=== PATIENT | female | born 1955 | race Caucasian/White ===

== ENCOUNTER 2020-08-19 08:44 | Outpatient (CLI) | payer BC, SELFPAY ==
--- NOTE | 2020-08-19 10:30 | NEURO_ITS ---
Patient Number: [id number] Impression: # Complains of imbalance /gait dysfunction. # Normal nerve conduction study. # Normal needle/EMG exam. # Clinical correlation recommended; Consider higher involvement. Nerve Conduction Studies Anti Sensory Summary Table Stim Site NR Peak (ms) P-T Amp (?V) Site1 Site2 Delta-P (ms) Dist (cm) Roger (m/s) Left Sup Fibular Anti Sensory (Ant Lat Mall) 14 cm 3.9 24.9 14 cm Ant Lat Mall 3.9 16.0 41 Right Sup Fibular Anti Sensory (Ant Lat Mall) 14 cm 3.5 26.1 14 cm Ant Lat Mall 3.5 16.0 46 Left Sural Anti Sensory (Lat Mall) Calf 3.5 9.3 Calf Lat Mall 3.5 16.0 46 Right Sural Anti Sensory (Lat Mall) Calf 3.9 10.7 Calf Lat Mall 3.9 16.0 41 Motor Summary Table Stim Site NR Onset (ms) O-P Amp (mV) Site1 Site2 Delta-0 (ms) Dist (cm) Roger (m/s) Left Peroneal Motor (Vastus Med) Ankle 5.1 3.5 Popit Ankle 8.0 38.0 48 Popit 13.1 2.6 Right Peroneal Motor (Vastus Med) Ankle 4.8 1.5 Popit Ankle 8.0 37.0 46 Popit 12.8 1.2 Left Tibial Motor (Abd Villafana Brev) Ankle 4.8 5.0 Knee Ankle 9.0 40.0 44 Knee 13.8 3.1 Right Tibial Motor (Abd Villafana Brev) Ankle 5.1 7.0 Knee Ankle 9.2 38.0 41 Knee 14.3 3.8 F Wave Studies NR F-Lat (ms) L-R F-Lat (ms) Left Peroneal (Mrkrs) (EDB) 49.11 0.34 Right Peroneal (Mrkrs) (EDB) 48.77 0.34 Left Tibial (Mrkrs) (Abd Hallucis) 49.50 0.27 Right Tibial (Mrkrs) (Abd Hallucis) 49.23 0.27 EMG Side Muscle Nerve Root Ins Act Fibs Amp Dur Recrt Comment Right AntTibialis Dp Br Fibular L4-5 Nml Nml Nml Nml Nml Right Gastroc Tibial S1-2 Nml Nml Nml Nml Nml Right Fibularis Long Sup Br Fibular L5-S1 Nml Nml Nml Nml Nml Right Flex Dig Long Tibial L5-S2 Nml Nml Nml Nml Nml Right Ext Dig Brev Dp Br Fibular L5, S1 Nml Nml Nml Nml Nml Left AntTibialis Dp Br Fibular L4-5 Nml Nml Nml Nml Nml Left Gastroc Tibial S1-2 Nml Nml Nml Nml Nml Left Fibularis Long Sup Br Fibular L5-S1 Nml Nml Nml Nml Nml Left Flex Dig Long Tibial L5-S2 Nml Nml Nml Nml Nml Left Ext Dig Brev Dp Br Fibular L5, S1 Nml Nml Nml Nml Nml MTDD
== END 2020-08-19 08:45 | disposition home or self-care (01) ==
LOC: ANHNEURO 08:46
PROVIDERS: PCP Internal Medicine; Visit Provider Psychiatry & Neurology Neurology
DX: G62.9 Polyneuropathy, unspecified (principal)
CPT/HCPCS: 95886; 95910

== ENCOUNTER 2020-11-04 07:54 | Outpatient (CLI) | payer BC, SELFPAY ==
[2020-11-04 08:48] LABS: Alanine Aminotransferase 15 U/L (4-35); Albumin Level 4.4 g/dL (3.5-5.1); Alkaline Phosphatase 49 U/L (38-126); Anion Gap 9 mmol/L (8-16); Aspartate Amino Transferase 21 U/L (14-36); Bilirubin,Total 0.6 mg/dL (0.2-1.3); Blood Urea Nitrogen 18 mg/dL (7-17); Calcium 9.8 mg/dL (8.4-10.2); Carbon Dioxide 30 mmol/L (22-30); Chloride 101 mmol/L (98-107); Estimated Glomerular Filt Rate > 60; Glucose 94 mg/dL (65-105); Potassium 3.7 mmol/L (3.4-5.0); Sodium 140 mmol/L (137-145)
[2020-11-04 09:16] LABS: Free T4 Free Thyroxine 1.38 ng/mL (0.78-2.19)
[2020-11-07 02:36] LABS: Thyroid Peroxidase Antibodies <1 IU/mL (<9)
[2020-11-11 14:40] LABS: Triiodothyronine T3 Free 3.1 pg/mL (2.3-4.2)
== END 2020-11-04 07:55 | disposition home or self-care (01) ==
PROVIDERS: PCP Internal Medicine; Visit Provider Internal Medicine Endocrinology, Diabetes & Metabolism
DX: R94.7 Abnormal results of other endocrine function studies (principal); R53.83 Other fatigue
CPT/HCPCS: 36415; 80053; 82533; 84439; 84443; 84481; 86376; 96372; J0834

== ENCOUNTER → 2020-11-26 15:09 | Outpatient (CLI) | payer BC, SELFPAY ==
--- NOTE | ~2020-11-26 | MR_ITS ---
EXAMINATION: MR cervical spine wo/w con DATE: 11/26/2020 16:07 INDICATION: Cervical disc disorder presenting with unsteady gait and left arm tingling TECHNIQUE: Magnetic resonance imaging (MRI) of the cervical spine was performed without and with 10 m L Multihance intravenous contrast. Sequences included sagittal T2-weighted FSE, sagittal T2-weighted FS FSE, sagittal T1-weighted FSE, axial T2-weighted FSE, and axial T1-weighted SE. Postcontrast seque nces included sagittal T1-weighted FS FSE, and axial T1-weighted FS SE. COMPARISON: None FINDINGS: Bone alignment is normal. Vertebral body heights are normal. Bone marrow signal intensity is normal . Intervertebral disc heights are normal. Cord signal intensity is normal. Cervical soft tissues are unremarkable. No abnormally enhancing lesions identified. The following disc levels are specifically discussed: C2-C3: The disc does not extend beyond the endplate margin. There is no uncovertebral joint osteoarth ritis. There is mild bilateral facet joint osteoarthritis. There is no neural foraminal stenosis. The re is no central canal stenosis. C3-C4: The disc does not extend beyond the endplate margin. There is no uncovertebral joint osteoarth ritis. There is mild left and minimal right facet joint osteoarthritis. There is no neural foraminal stenosis. There is no central canal stenosis. C4-C5: Disc is mildly bulging. There is mild right and mild to moderate left uncovertebral joint oste oarthritis. There is mild left and mild to moderate right facet joint osteoarthritis. There is mild b ilateral neural foraminal stenosis. There is mild central canal stenosis. C5-C6: The disc does not extend beyond the endplate margin. There is mild bilateral uncovertebral kieran nt osteoarthritis. There is mild to moderate bilateral facet joint osteoarthritis. There is mild bila teral neural foraminal stenosis. There is no central canal stenosis. C6-C7: The disc does not extend beyond the endplate margin. There is mild left uncovertebral joint os teoarthritis. There is mild right and mild to moderate left facet joint osteoarthritis. There is mild left and minimal right neural foraminal stenosis. There is no central canal stenosis. C7-T1: The disc does not extend beyond the endplate margin. There is no uncovertebral joint osteoarth ritis. There is mild right and mild to moderate right facet joint osteoarthritis. There is no neural foraminal stenosis. There is no central canal stenosis. IMPRESSION: 1. Mild cervical spondylosis. Reviewed, dictated and finalized at location A. SHER IMPLANT
[2020-11-26 15:32] LABS: Estimated Glomerular Filt Rate > 60
== END ==
DX: M50.020 Cervical disc disorder with myelopathy, mid-cervical region, unspecified level (principal); M47.812 Spondylosis without myelopathy or radiculopathy, cervical region
CPT/HCPCS: 72156; A9577

== ENCOUNTER → 2020-12-10 11:33 | Outpatient (CLI) | payer BC, SELFPAY ==
--- NOTE | ~2020-12-10 | XR_ITS ---
XR lumbar spine 2-3V DATE: 12/10/2020 12:13 INDICATION: Back pain, radiculopathy. TECHNIQUE: Standing flexion and extension lateral views only COMPARISON: None FINDINGS: Diffuse osteopenia. There is mild degenerative spurring of the thoracic spine. No fracture or spondylolisthesis is evident. No instability on flexion or extension is evident. IMPRESSION: Limited incomplete examination Diffuse osteopenia Mild degenerative change of the lumbar spine Reviewed, dictated and finalized at location A. IR CAMERAMAN
--- NOTE | ~2020-12-10 | XR_ITS ---
XR thoracic spine 2V DATE: 12/10/2020 12:13 INDICATION: Thoracic spine pain. Radiculopathy. TECHNIQUE: Flexion and extension lateral views COMPARISON: None FINDINGS: Limited examination excluding AP and swimmer views. Diffuse osteopenia. No fracture or dislocation or instability of the thoracic spine is detected. IMPRESSION: Limited examination; no instability on flexion or extension Osteopenia Reviewed, dictated and finalized at location A. ERSITY CONTROLLER
== END ==
DX: M54.10 Radiculopathy, site unspecified (principal); M85.88 Other specified disorders of bone density and structure, other site
CPT/HCPCS: 72070; 72100

== ENCOUNTER → 2020-12-24 09:41 | Outpatient (CLI) | payer BC, SELFPAY ==
--- NOTE | ~2020-12-24 | MR_ITS ---
EXAMINATION: MR thoracic spine wo con EXAM DATE: 12/24/2020 10:29 INDICATION: Thoracic spine pain radiculopathy . TECHNIQUE: Multi-sequential, multiplanar MR images of the thoracic spine were obtained without contra st. Sagittal T1, T2, T2 fat saturation, axial T2 weighted images reviewed. There is no prior study for comparison. FINDINGS: The vertebral bodies are aligned in the AP dimension. Vertebral body and disc heights are w ell-maintained. The spinal cord signal intensity and intrinsic morphology is normal. Thoracic central canal and neural foramen widely patent. Mild diffuse thoracic facet arthropathy. Paraspinal soft tis jered is unremarkable. IMPRESSION: Mild thoracic facet arthropathy. Reviewed, dictated and finalized at location A. INUM POOL INSTALLER
--- NOTE | ~2020-12-24 | MR_ITS ---
EXAMINATION: MR lumbar spine wo con EXAM DATE: 12/24/2020 10:34 INDICATION: Radiculopathy unspecified. Left leg numbness. TECHNIQUE: Multi-sequential, multiplanar MR images of the lumbar spine were obtained without contrast . Sagittal T1, T2, T2 fat saturation images. Axial T2 weighted images. Correlation is made to lumba r x-ray from 12/10/2020. FINDINGS: There is a transitional segment which will be designated S1 with a rudimentary S1-2 disc sp jrarett. There is mild disc disease L1-L3. The conus medullaris terminates at the L1/2 level and has norm al signal intensity and morphology. The vertebral bodies are aligned in the AP dimension. Vertebral body heights are maintained. Paraspinal soft tissue is unremarkable. Level by level evaluation: L1-L2: There is a minimal diffuse disc bulge. Facet arthropathy: None. Neural foraminal stenosis: No stenosis. Central canal stenosis: No stenosis. L2-L3: Disc does not extend beyond the endplate margin. Facet arthropathy: None. Neural foraminal stenosis: No stenosis. Central canal stenosis: No stenosis. L3-L4: There is a mild diffuse disc bulge. Facet arthropathy: Mild. Neural foraminal stenosis: No stenosis. Central canal stenosis: No stenosis. L4-L5: There is a mild diffuse disc bulge. Facet arthropathy: Mild. Neural foraminal stenosis: Mild left. Central canal stenosis: No stenosis. L5-S1: There is a minimal diffuse disc bulge. Facet arthropathy: Mild. Neural foraminal stenosis: No stenosis. Central canal stenosis: No stenosis. S1-2: Rudimentary disc, transitional segment Facet arthropathy: Mild. Neural foraminal stenosis: No stenosis. Central canal stenosis: No stenosis. IMPRESSION: 1. Transitional lumbosacral segment designated S1. 2. Mild lumbar spondylosis. Reviewed, dictated and finalized at location A. R HEAD PUNCHER
== END ==
DX: M54.10 Radiculopathy, site unspecified (principal); M54.6 Pain in thoracic spine; M47.816 Spondylosis without myelopathy or radiculopathy, lumbar region; Q76.49 Other congenital malformations of spine, not associated with scoliosis; M12.9 Arthropathy, unspecified
CPT/HCPCS: 72146; 72148

== ENCOUNTER 2020-12-28 08:50 | Outpatient (CLI) | payer BC, SELFPAY ==
--- NOTE | ~2020-12-28 | MM_ITS ---
EXAMINATION: MM screening betito BI w brittney HISTORY: Screening mammogram, family history of breast cancer in her sister. TECHNIQUE: Craniocaudal and mediolateral oblique 3-D tomosynthesis images were obtained and synthetic 2-D images were generated. CAD analysis was submitted and interpreted. COMPARISON: 05/03/2019, 02/22/2018, 02/03/2017 BREAST PARENCHYMAL COMPOSITION: There are scattered areas of fibroglandular density. FINDINGS: There is no evidence of suspicious mass, calcification, or architectural distortion to sugg est malignancy in either breast. There has been no suspicious interval change. IMPRESSION: 1. No mammographic evidence of malignancy. 2. Recommend routine screening mammography in one year. BI-RADS Category 1: Negative Reviewed, dictated and finalized at location A. VIDUAL PENSION ADVISER
--- NOTE | ~2020-12-28 | DEXA_ITS ---
Bone Density Report Name: Bisi Kuhn Age: 65 Sex: Female Ethnicity: White Date of : 1955 Indication: postmenopausal osteoporosis; height loss; Referring Provider: MARY LEON Study: Bone densitometry was performed. Exam Date: December 28, 2020 Accession number: [id number] Bone Density: Region BMD T-score Z-score Classification AP Spine (L1-L4) 0.667 -3.5 -1.7 Osteoporosis Femoral Neck (Left) 0.620 -2.1 -0.6 Osteopenia Total Hip (Left) 0.658 -2.3 -1.1 Osteopenia Total Hip Bilateral Avg 0.635 -2.5 -1.3 Osteoporosis Femoral Neck (Right) 0.590 -2.3 -0.8 Osteopenia Total Hip (Right) 0.610 -2.7 -1.5 Osteoporosis World Health Organization criteria for BMD impression classify patients as: Normal (T-score at or above -1.0), Osteopenia (T-score between -1.0 and -2.5), or Osteoporosis (T-score at or below -2.5). 10-year Fracture Risk: FRAX not reported because: Some T-score for Spine Total or Hip Total or Femoral Neck at or below -2.5 Previous Exams: Region Exam Age BMD T-score BMD Change BMD Change Date g/cm2 vs Baseline vs Previous AP Spine(L1-L4) 12/28/2020 65 0.667 -3.5 -0.155(-18.9%) -0.106(-13.8%) 09/21/2018 63 0.773 -2.5 -0.049(-6.0%)# -0.002(-0.3%) 07/04/2016 61 0.776 -2.5 -0.047(-5.7%)# 0.011(1.4%)# 03/21/2014 58 0.765 -2.6 -0.058(-7.0%)# 0.002(0.2%)# 09/16/2011 56 0.763 -2.6 -0.059(-7.2%)* -0.030(-3.8%)* 06/14/2009 53 0.793 -2.3 -0.029(-3.6%)* -0.029(-3.6%)* 12/11/2006 51 0.822 -2.0 Total Hip(Left) 12/28/2020 65 0.658 -2.3 -0.055(-7.8%)# -0.069(-9.5%)* 09/21/2018 63 0.727 -1.8 0.014(1.9%)# -0.042(-5.4%)* 07/04/2016 61 0.769 -1.4 0.055(7.8%)# 0.038(5.1%)# 03/21/2014 58 0.732 -1.7 0.018(2.5%)# -0.020(-2.7%)# 09/16/2011 56 0.752 -1.6 0.038(5.4%)* 0.028(3.9%)* 06/14/2009 53 0.724 -1.8 0.010(1.4%) 0.010(1.4%) 12/11/2006 51 0.714 -1.9 Total Hip(Right) 12/28/2020 65 0.610 -2.7 -0.075(-10.9%) -0.094(-13.3%) 09/21/2018 63 0.704 -1.9 0.019(2.8%)# -0.015(-2.1%) 07/04/2016 61 0.719 -1.8 0.034(5.0%)# -0.030(-4.0%)# 03/21/2014 58 0.750 -1.6 0.065(9.4%)# 0.036(5.0%)# 09/16/2011 56 0.714 -1.9 0.029(4.2%)* -0.010(-1.4%) 06/14/2009 53 0.724 -1.8 0.039(5.7%)* 0.039(5.7%)* 12/11/2006 51 0.685 -2.1 *Denotes significance at 95% confidence level, LSC for AP Spine = 0.022 g/cm2, LSC for Total Hip = 0.027 g/cm2 Clinical Information Provided by Patient:
== END 2020-12-28 08:51 | disposition home or self-care (01) ==
LOC: ANHIMG 08:52
PROVIDERS: Visit Provider Obstetrics & Gynecology
DX: Z78.0 Asymptomatic menopausal state (principal); Z12.31 Encounter for screening mammogram for malignant neoplasm of breast; M81.0 Age-related osteoporosis without current pathological fracture; M85.852 Other specified disorders of bone density and structure, left thigh; M85.851 Other specified disorders of bone density and structure, right thigh
CPT/HCPCS: 77063; 77067; 77080

== ENCOUNTER 2021-10-18 09:18 | Outpatient (CLI) | payer MEDICARE, SELFPAY ==
--- NOTE | ~2021-10-18 | PE_ITS ---
EXAMINATION: PET skull to mid thigh DATE: 10/18/2021 11:19 INDICATION: Multiple pulmonary nodules TECHNIQUE: Blood glucose level was 78 mg/dL. 8.277 mCi of 18-fluorodeoxyglucose (18-FDG) was administ ered i.v. Low dose computed tomography (CT) images were acquired from the base of the brain to the pr oximal thighs for attenuation correction and anatomic localization. Positron emission tomography (PET ) images were acquired in the same distribution beginning 64 minutes after injection. Images includin g fused PET/CT images were reconstructed in axial, coronal, and sagittal planes. Automated exposure c ontrol technique was employed. The dose-length product was 294.32mGy-cm. COMPARISON: None FINDINGS: Head/neck: There is symmetric increased activity in the oral cavity, palatine tonsils, parotid glands, submandib ular glands,laryngeal muscles, ocular muscles and sternocleidomastoid muscles without CT correlate, l ikely physiologic. No pathologically enlarged cervical lymphadenopathy or suspicious foci of increase d FDG uptake in the visualized head or neck. Chest: There are a few subcentimeter pulmonary nodules and smaller nodular pleural parenchymal scarring at t he bilateral apices which are without increased FDG uptake. No pneumonia, pulmonary edema or pleural effusion. Heart size is normal. No pericardial effusion. Thoracic aorta is normal in caliber. Calcifi ed left hilar lymph node consistent with old granulomatous disease. No pathologically enlarged or FDG avid thoracic lymphadenopathy. Abdomen/pelvis/proximal thighs: Physiologic renal accumulation and excretion of FDG activity in the kidneys and bladder. Normal degre e and heterogenous pattern of increased uptake throughout the liver without radiologic correlate or d ominant FDG avid lesion. The gallbladder, pancreas and bilateral adrenal glands are normal. Splenic c alcifications consistent with old granulomatous disease. Mild scattered colonic diverticulosis withou t adjacent from 3 change to suggest diverticulitis. Uptake scattered throughout the bowels without ra diologic correlate, also likely physiologic. Uterus and bilateral adnexa are unremarkable. Very small amount of likely physiologic free fluid in the cul-de-sac. No other abnormal foci of increased FDG u ptake or pathologically enlarged lymphadenopathy in the abdomen, pelvis or proximal thighs. Musculoskeletal: No suspicious lytic, blastic or FDG avid bone lesions. IMPRESSION: 1. No abnormal FDG uptake associated with a few subcentimeter nodules and nodular pleural parenchymal scarring at the apical segments of the bilateral upper lobes. Although reassuring, could not absolut josselin exclude slowly growing malignancy and would recommend continued follow-up with six-month low-dose noncontrast chest CT. Reviewed, dictated and finalized at location A. PRIVATE DUTY IMPRESSION: 1. No abnormal FDG uptake associated with a few subcentimeter nodules and nodul ar pleural parenchymal scarring at the apical segments of the bilateral upper l obes. Although reassuring, could not absolutely exclude slowly growing malignan cy and would recommend continued follow-up with six-month low-dose noncontrast chest CT.
[2021-10-18 09:47] LABS: Glucose Point of Care 78 mg/dl (65-105)
== END 2021-10-18 09:19 | disposition home or self-care (01) ==
PROVIDERS: PCP Internal Medicine; Visit Provider Internal Medicine Pulmonary Disease
DX: R91.1 Solitary pulmonary nodule (principal)
CPT/HCPCS: 78815; A9552

== ENCOUNTER 2021-10-24 14:35 | Outpatient (CLI) | payer MEDICARE, SELFPAY ==
--- NOTE | 2021-10-25 06:54 | WPDPFTINT ---
PFT Procedure Performed PFT Procedure Performed Plethysmography (Lung Vol) Diffusing Cap (DLCO) Flow Vol Loop Spirometry w/o Bronchodil PFT Interpretation This is a pulmonary function test with spirometry, plethysmography and diffusing capacity. The test was performed and results interpreted in accordance with the 2019 and 2005 ATS/ERS Task Force guidelines respectively using the Global Lung Function Initiative-2012 reference equations. Patient demonstrated good effort and cooperation. Reproducibility criteria were met. The quality of the spirometry maneuver was Grade A. Findings: Spirometry: The contour the inspiratory and expiratory flow tracing are normal. The the FVC is 3.09 L, 99% predicted. The FEV1 is 2.18 L, 90% predicted. The FEV1: FVC ratio 71%. Plethysmography: The total lung capacity is 4.65 L, 89% predicted. The functional residual capacity is 3.92 L, 111% predicted. The residual volume is 1.56 L, 73% predicted. Diffusing capacity: The absolute diffusion capacity is 15.8, 73% predicted. The diffusing capacity corrected for alveolar volume is 4.07, 94% predicted. Impression: The spirometry is normal without evidence of an obstructive abnormality. The lung volumes are normal. The diffusing capacity is normal. There are no prior studies for comparison
== END 2021-10-24 14:36 | disposition home or self-care (01) ==
PROVIDERS: PCP Internal Medicine; Visit Provider Internal Medicine Pulmonary Disease
DX: R06.09 Other forms of dyspnea (principal); R05.9 Cough, unspecified; J98.4 Other disorders of lung
CPT/HCPCS: 94375; 94726; 94729

== ENCOUNTER 2022-02-04 11:28 | Outpatient (CLI) | payer MEDICARE, SELFPAY ==
--- NOTE | ~2022-02-04 | MM_ITS ---
EXAMINATION: MM screening betito BI w brittney HISTORY: Screening TECHNIQUE: Craniocaudal and mediolateral oblique 3-D tomosynthesis images were obtained and synthetic 2-D images were generated. CAD analysis was submitted and interpreted. COMPARISON: Comparison to multiple prior studies sequentially, with oldest reviewed study dated 09/06. BREAST PARENCHYMAL COMPOSITION: There are scattered areas of fibroglandular density. FINDINGS: There is no evidence of suspicious mass, calcification, or architectural distortion to sugg est malignancy in either breast. There has been no suspicious interval change. IMPRESSION: 1. No mammographic evidence of malignancy. 2. Recommend routine screening mammography in one year. BI-RADS Category 1: Negative Reviewed, dictated and finalized at location A.
== END 2022-02-04 11:29 | disposition home or self-care (01) ==
PROVIDERS: PCP Internal Medicine; Visit Provider Obstetrics & Gynecology
DX: Z12.31 Encounter for screening mammogram for malignant neoplasm of breast (principal)
CPT/HCPCS: 77063; 77067

== ENCOUNTER 2022-07-03 13:31 | Outpatient (CLI) | payer MEDICARE, SELFPAY ==
[2022-07-03 13:59] LABS: Basophils Percent Auto 0.8 % (0.2-1.2); Eosinophils Absolute Auto 0.2 K/mm3 (0-0.3); Eosinophils Percent Auto 3.2 % (0-4.4); Hematocrit 35.3 % (37.0-47.0); Hemoglobin 11.4 g/dL (12.0-15.0); Immature Granulocyte Absolute 0.02 K/mm3 (0.00-0.031); Immature Granulocyte Percent A 0.4 % (0-0.5); Lymphocytes Absolute Auto 0.91 K/mm3 (0.9-3.2); Lymphocytes Percent Auto 19.1 % (18.3-44.2); Mean Corpuscular HGB Conc 32.3 g/dl (32-36); Mean Corpuscular Hemoglobin 29.8 pg (26-34); Mean Corpuscular Volume 92.4 fl (80-100); Mean Platelet Volume 11.2 fl (7.4-10.4); Monocytes Absolute Auto 0.4 K/mm3 (0.1-0.6); Monocytes Percent Auto 8.2 % (2.6-8.5); Neutrophils Absolute Auto 3.3 K/mm3 (1.3-6.7); Neutrophils Percent Auto 68.3 % (45.5-73.1); Platelet Count Result 199 k/mm3 (150-375); Red Blood Count 3.82 M/mm3 (4.2-5.4); Red Cell Distribution Width 13.1 % (11.5-14.5); White Blood Count 4.8 K/mm3 (4.5-10.0)
[2022-07-03 14:13] LABS: Alanine Aminotransferase 16 U/L (6-35); Albumin Level 4.3 g/dL (3.5-5.1); Alkaline Phosphatase 50 U/L (38-126); Anion Gap 12 mmol/L (8-16); Aspartate Amino Transferase 25 U/L (14-36); Bilirubin,Total 0.4 mg/dL (0.2-1.3); Blood Urea Nitrogen 18 mg/dL (7-17); Calcium 9.4 mg/dL (8.4-10.2); Carbon Dioxide 25 mmol/L (22-30); Chloride 101 mmol/L (98-107); Estimated Glomerular Filt Rate > 60; Glucose 105 mg/dL (65-110); Potassium 3.9 mmol/L (3.4-5.0); Sodium 138 mmol/L (137-145)
== END 2022-07-03 13:32 | disposition home or self-care (01) ==
PROVIDERS: PCP Internal Medicine
DX: G44.89 Other headache syndrome (principal)
CPT/HCPCS: 36415; 80053; 82607; 83735; 84443; 85025

== ENCOUNTER 2022-07-17 07:18 | Outpatient (CLI) | payer MEDICARE, SELFPAY ==
[2022-07-17 07:48] LABS: Alanine Aminotransferase 18 U/L (6-35); Albumin Level 4.1 g/dL (3.5-5.1); Alkaline Phosphatase 50 U/L (38-126); Anion Gap 8 mmol/L (8-16); Aspartate Amino Transferase 24 U/L (14-36); Bilirubin,Total 0.5 mg/dL (0.2-1.3); Blood Urea Nitrogen 14 mg/dL (7-17); Calcium 9.1 mg/dL (8.4-10.2); Carbon Dioxide 25 mmol/L (22-30); Chloride 105 mmol/L (98-107); Estimated Glomerular Filt Rate > 60; Glucose 90 mg/dL (65-110); Magnesium 2.2 mg/dL (1.6-2.3); Phosphorus 3.7 mg/dL (2.5-4.5); Potassium 3.9 mmol/L (3.4-5.0); Sodium 138 mmol/L (137-145)
[2022-07-17 08:12] LABS: Free T4 Free Thyroxine 1.11 ng/mL (0.78-2.19); Vitamin D 25 Hydroxy 51.5 ng/mL
[2022-07-17 08:54] LABS: Folic Acid 9.5 ng/mL (2.76->20)
[2022-07-17 10:33] LABS: Parathyroid Intact 73.8 pg/mL (7.5-53.5)
[2022-07-19 19:00] LABS: Triiodothyronine T3 Free 2.5 pg/mL (2.3-4.2)
[2022-07-20 04:50] LABS: Thyroid Peroxidase Antibodies <1 IU/mL (<9)
== END 2022-07-17 07:19 | disposition home or self-care (01) ==
LOC: ANHLAB 07:21
PROVIDERS: PCP Internal Medicine; Visit Provider Internal Medicine Endocrinology, Diabetes & Metabolism
DX: I95.1 Orthostatic hypotension (principal); E06.3 Autoimmune thyroiditis; M81.0 Age-related osteoporosis without current pathological fracture
CPT/HCPCS: 36415; 80053; 82306; 82607; 82746; 83735; 83970; 84100; 84439; 84443; 84481; 86376

== ENCOUNTER 2022-09-18 07:26 | Outpatient (CLI) | payer MEDICARE, SELFPAY ==
[2022-09-18 08:56] LABS: Free T4 Free Thyroxine 1.37 ng/mL (0.78-2.19)
[2022-09-21 05:22] LABS: Thyroid Peroxidase Antibodies <1 IU/mL (<9)
[2022-09-24 18:11] LABS: Triiodothyronine T3 Free 2.6 pg/mL (2.3-4.2)
== END 2022-09-18 07:27 | disposition home or self-care (01) ==
LOC: ANHLAB 07:30
PROVIDERS: PCP Internal Medicine; Visit Provider Internal Medicine Endocrinology, Diabetes & Metabolism
DX: E03.9 Hypothyroidism, unspecified (principal)
CPT/HCPCS: 36415; 84439; 84443; 84481; 86376

== ENCOUNTER 2022-10-13 14:24 | Outpatient (CLI) | payer MEDICARE, SELFPAY ==
--- NOTE | 2022-10-13 17:08 | WPDPFTINT ---
PFT Procedure Performed PFT Procedure Performed Plethysmography (Lung Vol) Diffusing Cap (DLCO) Flow Vol Loop Spirometry w/o Bronchodil PFT Interpretation This is a pulmonary function test with spirometry, plethysmography and diffusing capacity. The test was performed and results interpreted in accordance with the 2019 and 2005 ATS/ERS Task Force guidelines respectively using the Global Lung Function Initiative-2012 reference equations. Patient demonstrated good effort and cooperation. Reproducibility criteria were met. The quality of the spirometry maneuver was Grade A. Findings: Spirometry: The contour the inspiratory and expiratory flow tracing are normal. The FVC is 3.16 L, 103% predicted. The FEV1 is 2.21 L, 92% predicted. The FEV1: FVC ratio 70%. Plethysmography: The total lung capacity is 4.76 L, 92% predicted. Functional residual capacity is 3.13 L, 106% predicted. The residual volume is 1.60 L, 74% predicted. Diffusion capacity: The diffusing capacity unadjusted for hemoglobin and carboxyhemoglobin is 16.4, 77% predicted. The diffusing capacity adjusted for alveolar volume is 3.96, 92% predicted. Impression: The spirometry is normal without evidence of an obstructive abnormality. The lung volumes are normal. The diffusing capacity is normal. There are no prior studies for comparison
== END 2022-10-13 14:25 | disposition home or self-care (01) ==
PROVIDERS: PCP Internal Medicine; Visit Provider Internal Medicine Pulmonary Disease
DX: R06.09 Other forms of dyspnea (principal); J98.4 Other disorders of lung
CPT/HCPCS: 94375; 94726; 94729

== ENCOUNTER 2022-11-27 07:44 | Outpatient (CLI) | payer MEDICARE, SELFPAY ==
[2022-11-27 08:52] LABS: Alanine Aminotransferase 19 U/L (6-35); Alkaline Phosphatase 52 U/L (38-126); Anion Gap 5 mmol/L (8-16); Aspartate Amino Transferase 23 U/L (14-36); Bilirubin,Total 0.6 mg/dL (0.2-1.3); Blood Urea Nitrogen 18 mg/dL (7-17); Calcium 8.7 mg/dL (8.4-10.2); Carbon Dioxide 27 mmol/L (22-30); Chloride 105 mmol/L (98-107); Estimated Glomerular Filt Rate > 60; Glucose 87 mg/dL (65-110); Magnesium 2.1 mg/dL (1.6-2.3); Phosphorus 3.6 mg/dL (2.5-4.5); Potassium 3.7 mmol/L (3.4-5.0); Sodium 137 mmol/L (137-145)
[2022-11-27 09:02] LABS: Parathyroid Intact 63.5 pg/mL (7.5-53.5)
[2022-11-27 09:47] LABS: Free T4 Free Thyroxine 1.38 ng/mL (0.78-2.19)
[2022-11-30 05:04] LABS: Thyroid Peroxidase Antibodies <1 IU/mL (<9)
[2022-11-30 22:17] LABS: Triiodothyronine T3 Free 2.5 pg/mL (2.3-4.2)
== END 2022-11-27 07:45 | disposition home or self-care (01) ==
LOC: ANHLAB 07:48
PROVIDERS: PCP Internal Medicine; Visit Provider Internal Medicine Endocrinology, Diabetes & Metabolism
DX: E03.9 Hypothyroidism, unspecified (principal); I95.1 Orthostatic hypotension; M81.0 Age-related osteoporosis without current pathological fracture
CPT/HCPCS: 36415; 80053; 82306; 83735; 83970; 84100; 84439; 84443; 84481; 86376

== ENCOUNTER 2023-04-04 09:48 | Outpatient (CLI) | payer MEDICARE, SELFPAY ==
--- NOTE | ~2023-04-04 | DEXA_ITS ---
Bone Density Report Name: ESTELLE SENIOR Age: 67 Sex: Female Ethnicity: White Date of : 1955 Indication: postmenopausal osteoporosis; monitoring treatment; height loss; Referring Provider: MARY LEON Study: Bone densitometry was performed. Exam Date: April 04, 2023 Accession number: [id number] Bone Density: Region BMD T-score Z-score Classification AP Spine(L1-L4) 0.684 -3.3 -1.4 Osteoporosis Femoral Neck (Left) 0.600 -2.2 -0.6 Osteopenia Total Hip (Left) 0.654 -2.4 -1.0 Osteopenia Femoral Neck (Right) 0.603 -2.2 -0.6 Osteopenia Total Hip (Right) 0.618 -2.7 -1.3 Osteoporosis Total Hip Mean 0.636 -2.6 -1.2 Osteoporosis World Health Organization criteria for BMD impression classify patients as: Normal (T-score at or above -1.0), Osteopenia (T-score between -1.0 and -2.5), or Osteoporosis (T-score at or below -2.5). 10-year Fracture Risk: FRAX not reported because: Some T-score for Spine Total or Hip Total or Femoral Neck at or below -2.5 Treated for osteoporosis Previous Exams: Region Exam Age BMD T-score BMD Change BMD Change Date g/cm2 vs Baseline vs Previous AP Spine (L1-L4) 04/04/2023 67 0.684 -3.3 -0.081 (-10.6% 0.017 (2.5%) 12/28/2020 65 0.667 -3.5 -0.098 (-12.8% -0.106 (-13.8% 09/21/2018 63 0.773 -2.5 0.009 (1.1%)# -0.002 (-0.3%) 07/04/2016 61 0.776 -2.5 0.011 (1.4%)# 0.011 (1.4%)# 03/21/2014 58 0.765 -2.6 Total Hip(Left) 04/04/2023 67 0.654 -2.4 -0.078 (-10.6% -0.005 (-0.7%) 12/28/2020 65 0.658 -2.3 -0.073 (-10.0% -0.069 (-9.5%) 09/21/2018 63 0.727 -1.8 -0.004 (-0.6%) -0.042 (-5.4%) 07/04/2016 61 0.769 -1.4 0.038 (5.1%)# 0.038 (5.1%)# 03/21/2014 58 0.732 -1.7 Total Hip(Right) 04/04/2023 67 0.618 -2.7 -0.132 (-17.6% 0.008 (1.3%) 12/28/2020 65 0.610 -2.7 -0.139 (-18.6% -0.094 (-13.3% 09/21/2018 63 0.704 -1.9 -0.045 (-6.1%) -0.015 (-2.1%) 07/04/2016 61 0.719 -1.8 -0.030 (-4.0%) -0.030 (-4.0%) 03/21/2014 58 0.750 -1.6 *Denotes significance at 95% confidence level, LSC for AP Spine = 0.022 g/cm2, LSC for Total Hip = 0.027 g/cm2 # Denotes dissimilar scan types or analysis methods Clinical Information Provided by Patient: Is being treated for osteoporosis Has used the following medications: Boniva (i.e. ibandronate), Vitamin D, Calcium Patient maximum height was 66 Menopause Age: 47 No regular weight bearing exercise Onset of menses at age 15 Number of children 1 ---------
--- NOTE | ~2023-04-04 | MM_ITS ---
EXAMINATION: MM screening betito BI w brittney HISTORY: Screening mammogram TECHNIQUE: Craniocaudal and mediolateral oblique 3-D tomosynthesis images were obtained and synthetic 2-D images were generated. CAD analysis was submitted and interpreted. COMPARISON: February 04, 2022, 02/25/2021, May 03, 2019 bilateral screening mammogram examinations BREAST PARENCHYMAL COMPOSITION: There are scattered areas of fibroglandular density. FINDINGS: There is no evidence of suspicious mass, calcification, or architectural distortion to sugg est malignancy in either breast. There has been no suspicious interval change. IMPRESSION: 1. No mammographic evidence of malignancy. 2. Recommend routine screening mammography in one year. BI-RADS Category 1: Negative Reviewed, dictated and finalized at location A.
== END 2023-04-04 09:49 | disposition home or self-care (01) ==
LOC: ANHIMG 09:49
PROVIDERS: PCP Internal Medicine; Visit Provider Obstetrics & Gynecology
DX: Z12.31 Encounter for screening mammogram for malignant neoplasm of breast (principal); M81.0 Age-related osteoporosis without current pathological fracture; M85.852 Other specified disorders of bone density and structure, left thigh; M85.851 Other specified disorders of bone density and structure, right thigh
CPT/HCPCS: 77063; 77067; 77080

== ENCOUNTER 2023-04-26 07:19 | Outpatient (CLI) | payer MEDICARE, SELFPAY ==
[2023-04-26 08:01] LABS: Alanine Aminotransferase 20 U/L (6-35); Albumin Level 4.2 g/dL (3.5-5.1); Alkaline Phosphatase 45 U/L (38-126); Anion Gap 0 mmol/L (8-16); Aspartate Amino Transferase 29 U/L (14-36); Bilirubin,Total 0.6 mg/dL (0.2-1.3); Blood Urea Nitrogen 19 mg/dL (7-17); Calcium 8.7 mg/dL (8.4-10.2); Carbon Dioxide 32 mmol/L (22-30); Chloride 104 mmol/L (98-107); Estimated Glomerular Filt Rate > 60; Glucose 85 mg/dL (65-110); Potassium 3.8 mmol/L (3.4-5.0); Sodium 136 mmol/L (137-145)
[2023-04-26 08:26] LABS: Free T4 Free Thyroxine 1.35 ng/mL (0.78-2.19)
[2023-04-26 09:08] LABS: Folic Acid 9.1 ng/mL (2.76->20)
[2023-05-01 23:27] LABS: Adrenocorticotropic Hormone 26 pg/mL (6-50)
[2023-05-02 06:18] LABS: Triiodothyronine T3 Free 2.7 pg/mL (2.3-4.2)
== END 2023-04-26 07:20 | disposition home or self-care (01) ==
PROVIDERS: PCP Internal Medicine; Visit Provider Internal Medicine Endocrinology, Diabetes & Metabolism
DX: E03.9 Hypothyroidism, unspecified (principal); I95.1 Orthostatic hypotension
CPT/HCPCS: 36415; 80053; 82024; 82533; 82607; 82746; 84439; 84443; 84481

== ENCOUNTER 2023-05-10 09:32 | Outpatient (CLI) | payer MEDICARE, SELFPAY ==
--- NOTE | ~2023-05-10 | CT_ITS ---
CT Scan of the Chest without Contrast: Clinical Indication: Solitary pulmonary nodule Technique: Contiguous sections were acquired throughout the chest without intravenous contrast. Dose reduction technique was used on this scan by utilizing automated exposure control and iterative recon struction technique. The dose-length product (DLP) was 60.57 mGy-cm. Findings: There is no evidence of any significant mediastinal, hilar or axillary lymphadenopathy. The mediastin al soft tissues appear normal. There is no evidence of pleural or pericardial effusion. Biapical scarring noted. There is a 6 mm right upper lobe pulmonary nodule posteriorly (axial image 2 6). Images through the upper abdomen reveal no abnormalities. Impression: Biapical scarring with 6 mm right upper lobe pulmonary nodule, likely related to scarring. According to Fleischner Society criteria, for a low-risk patient, recommend 6-[address] follow-up, then consi nichelle additional 18-[address] follow-up. For a high-risk patient, recommend follow-up CTs at 6-12 mon ths and 18-24 months. Reviewed, dictated and finalized at location . Impression: Biapical scarring with 6 mm right upper lobe pulmonary nodule, likely related t o scarring. According to Fleischner Society criteria, for a low-risk patient, r ecommend 6-[address] follow-up, then consider additional 18-[address] follo w-up. For a high-risk patient, recommend follow-up CTs at 6-12 months and 18-24 months.
== END 2023-05-10 09:33 | disposition home or self-care (01) ==
LOC: ANHIMG 09:39
PROVIDERS: PCP Internal Medicine; Visit Provider Internal Medicine
DX: R91.1 Solitary pulmonary nodule (principal)
CPT/HCPCS: 71250

== ENCOUNTER 2023-08-03 07:21 | Outpatient (CLI) | payer MEDICARE, SELFPAY ==
[2023-08-03 08:14] LABS: Alanine Aminotransferase 22 U/L (6-35); Albumin Level 4.2 g/dL (3.5-5.1); Alkaline Phosphatase 45 U/L (38-126); Anion Gap 2 mmol/L (8-16); Aspartate Amino Transferase 30 U/L (14-36); Bilirubin,Total 0.6 mg/dL (0.2-1.3); Blood Urea Nitrogen 18 mg/dL (7-17); Calcium 8.7 mg/dL (8.4-10.2); Carbon Dioxide 28 mmol/L (22-30); Chloride 104 mmol/L (98-107); Cholesterol 174 mg/dL (0-200); Estimated Glomerular Filt Rate > 60; Glucose 87 mg/dL (65-110); HDL Direct 62 mg/dL; Magnesium 2.2 mg/dL (1.6-2.3); Phosphorus 3.5 mg/dL (2.5-4.5); Potassium 3.8 mmol/L (3.4-5.0); Sodium 134 mmol/L (137-145); Triglycerides 69 mg/dL (<150)
[2023-08-03 08:25] LABS: Parathyroid Intact 70.1 pg/mL (7.5-53.5)
[2023-08-03 08:26] LABS: LDL Cholesterol Direct 85 mg/dL
[2023-08-03 08:46] LABS: Free T4 Free Thyroxine 1.28 ng/mL (0.78-2.19); Vitamin D 25 Hydroxy 57.9 ng/mL
[2023-08-03 09:21] LABS: Folic Acid 6.8 ng/mL (2.76->20); Vitamin B12 > 1000.0 pg/mL (239-931)
[2023-08-06 03:19] LABS: Thyroid Peroxidase Antibodies <1 IU/mL (<9)
[2023-08-07 21:57] LABS: Adrenocorticotropic Hormone 26 pg/mL (6-50)
[2023-08-11 08:00] LABS: Triiodothyronine T3 Free 2.7 pg/mL (2.3-4.2)
== END 2023-08-03 07:22 | disposition home or self-care (01) ==
LOC: ANHLAB 07:26
PROVIDERS: PCP Internal Medicine; Visit Provider Internal Medicine Endocrinology, Diabetes & Metabolism
DX: E03.9 Hypothyroidism, unspecified (principal); E78.5 Hyperlipidemia, unspecified; I95.1 Orthostatic hypotension; M81.0 Age-related osteoporosis without current pathological fracture
CPT/HCPCS: 36415; 80053; 80061; 82024; 82306; 82533; 82607; 82746; 83735; 83970; 84100; 84439; 84443; 84481; 86376

== ENCOUNTER 2024-04-30 13:56 | Outpatient (CLI) | payer MEDICARE, SELFPAY ==
--- NOTE | ~2024-04-30 | MM_ITS ---
EXAMINATION: MM screening betito BI w brittney HISTORY: Screening mammogram, family history of breast cancer in her sister. TECHNIQUE: Craniocaudal and mediolateral oblique 3-D tomosynthesis images were obtained and synthetic 2-D images were generated. CAD analysis was submitted and interpreted. COMPARISON: 04/04/2023, 02/04/2022, 12/28/2020 BREAST PARENCHYMAL COMPOSITION:Not Dense. There are scattered areas of fibroglandular density. FINDINGS: No suspicious mass, calcification, or architectural distortion are identified in either sigrid ast to suggest malignancy. There has been no suspicious interval change. IMPRESSION: No mammographic evidence of malignancy. Recommend routine screening mammography in one year. BI-RADS Category 1: Negative Reviewed, dictated and finalized at location .
== END 2024-04-30 13:57 | disposition home or self-care (01) ==
LOC: ANHIMG 13:58
PROVIDERS: PCP Internal Medicine; Visit Provider Obstetrics & Gynecology
DX: Z12.31 Encounter for screening mammogram for malignant neoplasm of breast (principal)
CPT/HCPCS: 77063; 77067

== ENCOUNTER 2024-09-19 14:40 | Outpatient (CLI) | payer MEDICARE, SELFPAY ==
--- NOTE | ~2024-09-19 | CT_ITS ---
CT Scan of the Chest without Contrast: Clinical Indication: Pulmonary nodule Technique: Contiguous sections were acquired throughout the chest without intravenous contrast. Dose reduction technique was used on this scan by utilizing automated exposure control and iterative recon struction technique. The dose-length product (DLP) was 36.77 mGy-cm. COMPARISON: 05/10/2023 Findings: There is no evidence of any significant mediastinal, hilar or axillary lymphadenopathy. The mediastin al soft tissues appear normal. There is no evidence of pleural or pericardial effusion. Stable 9 mm right apical nodule with possible focal central cavitation. Mild biapical scarring/nodula rity otherwise is unchanged. Stable additional posterior right upper lobe 7 mm nodule (axial image 27 ). Stable nodule superior segment left lower lobe measuring 7 mm (axial image 39). Images through the upper abdomen reveal no abnormalities. Impression: Stable biapical nodules/scarring, and stable additional superior segment left lower lobe pulmonary no dule, as detailed above. Reviewed, dictated and finalized at [facility]. R COACH DRIVER Impression: Stable biapical nodules/scarring, and stable additional superior segment left l ower lobe pulmonary nodule, as detailed above.
== END 2024-09-19 14:41 | disposition home or self-care (01) ==
PROVIDERS: PCP Internal Medicine; Visit Provider Internal Medicine
DX: R91.1 Solitary pulmonary nodule (principal); R91.8 Other nonspecific abnormal finding of lung field
CPT/HCPCS: 71250

== ENCOUNTER 2025-01-16 06:54 | Outpatient (CLI) | payer MEDICARE, SELFPAY ==
--- OUTSIDE RECORDS SUMMARY | 2025-01-16 06:59 | XMS_ITS | Clinical Summary ---
Author Organization [facility] Address [address] [place] [address] Phone Care Team Providers Care Statistical Typist Name Role Phone Tyshawn Bains MD Primary Care Provider [phone] Lara Solitario APRN, CLAY MOLDER Unavailable [phone] Allergies No known active allergies Medications atorvastatin (LIPITOR) 10 MG Tablet Take 10 mg by mouth daily. Active fludrocortisone (FLORINEF) 0.1 MG Tablet Take 0.1 mg by mouth daily. Active fluticasone (FLONASE) 50 MCG/ACT Suspension 1-2 Sprays by Nasal route daily. Use in each nostril as directed. Active ibandronate (BONIVA) 150 MG Tablet Take 150 mg by mouth every 30 days. Active montelukast (SINGULAIR) 10 MG Tablet Take 10 mg by mouth every evening. Active propranolol (INDERAL) 10 MG Tablet Take 10 mg by mouth 3 times daily. Active Cholecalciferol (VITAMIN D-3 PO) Take by mouth. Active Cyanocobalamin (VITAMIN B-12) 1000 MCG TabletIndicatio ns:Vestibular migraine Take by mouth. 03/08/2021 Active Calcium Carb-Cholecalci ferol 600-800 MG-UNIT TabletIndicatio ns:Vestibular migraine CALTRATE 600+D3 TABLET 03/08/2021 Active Active Problems No known active problems Family History Medical History Relation Name Comments Heart Disease Brother Heart Disease Father Hypertension Father Diabetes Maternal Uncle Heart Disease Sister Relation Name Status Comments Brother Father Maternal Uncle Mother Sister Social History Tobacco Use Types Packs/Day Years Used Date Smoking Tobacco: Former Cigarettes Q uit: 11/05/1979 Smokeless Tobacco: Never Alcohol Use Standard Drinks/Week Comments Not Currently 0 (1 standard drink = 0.6 oz pur e alcohol) Comments Unknown Sex and Gender Information Value Date Recorded Sex Assigned at Not on file Legal Sex Female 8:56 AM CDT Gender Identity Not on file Sexual Orientation Not on file Last Filed Vital Signs Vital Sign Reading Time Taken Comments Blood Pressure 106/60 07/12/2022 11:36 AM CDT Pulse 77 07/12/2022 11:36 AM CDT Temperature 35.8 C (96.4 F) 07/12/2022 11:36 AM CDT Respiratory Rate 16 07/12/2022 11:36 AM CDT Oxygen Saturation 100% 07/12/2022 11:36 AM CDT Inhaled Oxygen Concentration - - Weight 60.6 kg (133 lb 9.6 oz) 07/12/2022 11:36 AM CDT Height 165.1 cm (5' 5 ) 07/12/2022 11:36 AM CDT Body Mass Index 22.23 07/12/2022 11:36 AM CDT Plan of Treatment Health Maintenance Due Date Last Done Comments DEXA Bone Density 1955 Hepatitis C Virus (HCV) Screening 1955 Mammogram 1955 TdaP Immunization 1955 Colonoscopy 2001 Colorectal Cancer Screening 2001 Cologuard 2006 Immunochemical Fecal Occult Blood 2006 Pneumococcal Immunization (50+ years) (1 of 1 - PCV) 2006 Zoster Immunization (1 of 2) 2006 Influenza Immunization (#1) 07/06/202404/2022, 09/07/2021, 08/30/2020, Additional history exists SARS-COV-2 Immunization ( season) 2024 08/10/2022, 09/07/2021, 02/28/2021, Additional history exists Respiratory Syncytial Virus (RSV) Immunization (Adult) (1 - 1-dose 75+ series) 2031 Hepatitis B Immunization Aged Out No longer eligible based on patient's age to complete this topic Meningococcal Immunization (ACWY) Aged Out No longer eligible based on patient's age to complete this topic Rotavirus Immunization Aged Out No lo nger eligible based on patient's age to complete this topic Insurance MEDICARE C [facility] on file Care Teams Statistical Typist Relationship Specialty Start Date End Date Tyshawn Bains MD PCP - General Internal Medicine 05/03/22 Lara Solitario, GED INSTRUCTOR, CLAY MOLDER [address] [place] [address] Nurse Practitioner Advanced Practice Nurse 07/12/22
--- OUTSIDE RECORDS SUMMARY | 2025-01-16 06:59 | XMS_ITS | CONTINUITY OF CARE DOCUMENT ---
Author Name conner, conner Address Unknown Organization [facility] Address [address] [place] [address] Phone [phone] Care Team Providers Care Steam And Power Supervisor Name Role Phone Michele Velarde MD Unavailable Tyshawn Bains MD Unavailable [phone] Tyshawn Bains MD Unavailable [phone] PROBLEMS Condition Status Date Provider Notes Family History of CVA or Stroke: active ? Mar cus Dorina Family History of CVA or Stroke: active ? Mar cus Dorina Family History of Sudden Cardiac : active ? Chase Cam Near syncope active Chase Cam Palpitations active Chase Cam Snoring active Chase Cam Hyperlipidemia active Chase Cam Systolic murmur active Chase Cam Dizziness active Enoch Matt Headache active Enoch Matt Tingling sensation in face active Enoch Al ex ENCOUNTERS Date Type Provider Location Encounter Diag nosis - In-person encounter Office Visit Cornel Stephens MD [place] [facility] - In-person encounter Office Visit Michele Velarde MD [facility] HeadacheTingling sensation in face - In-person encounter Office Visit Michele Velarde MD [place] [facility] Dizziness - In-person encounter Office Visit Michele Velarde MD [place] [facility] - In-person encounter Office Visit Michele Velarde MD [place] [facility] - In-person encounter Office Visit Michele Velarde MD [place] [facility] HyperlipidemiaSystolic murmur - In-person encounter Office Visit Michele Velarde MD [place] [facility] Family History of CVA or Stroke:Family History of CVA or Stroke:Family History of Sudden Cardiac :Near syncopePalpitationsSnoring VITAL SIGNS Date Observation Value Provider Body Mass Index (Ratio) 20.66 kg/m2 Eric Stephens MD blood pressure, cuff size regular Ke rri Hansnecody blood pressure, diastolic 70 mm[Hg] Ke rri Gruenenfelder blood pressure, systolic 110 mm[Hg] Kenneth Joseph oxygen saturation, oximetry 98 % Jacquie Jake respiratory rate E&M 16 /min Jacquie diaz pulse rate 75 /min Jacquie Lau er weight E&M 128 [lb_av] Jacquie Sid lder height E&M 66 [in_i] Jacquie Lau er Body Mass Index (Ratio) 21.63 kg/m2 Robin Gutierrez blood pressure, diastolic 78 mm[Hg] Cy valentine Gallegos blood pressure, systolic 120 mm[Hg] Ivy teresa Gallegos pulse rate 96 /min Poonam Carlosbel l respiratory rate E&M 16 /min Poonam Gallegos oxygen saturation, oximetry 99 % Poonam Gallegos weight E&M 134 [lb_av] Poonam Campbel l blood pressure, cuff size regular Cy ntmandaa Gallegos height E&M 66 [in_i] Poonam Campbel l temperature site temporal Anette [facility] temperature E&M 96.9 [degF] Anette Jada [facility] Body Mass Index (Ratio) 21.63 kg/m2 [facility] pulse rate, standing 100 /min Poonam Gallegos blood pressure, diastolic, standing 83 mm [Hg] Poonam Gallegos blood pressure, systolic, standing 96 mm[ Hg] [facility] blood pressure, diastolic 75 mm[Hg] Cy jose luiscostacie Bunker blood pressure, systolic 120 mm[Hg] Ivy moore Gallegos respiratory rate E&M 16 /min Poonam Gallegos pulse rate 96 /min Poonam Martin oxygen saturation, oximetry 100 % Poonam Gallegos weight E&M 134 [lb_av] Poonam Martin blood pressure, cuff size regular jose luiscostacie Gallegos height E&M 66 [in_i] Poonam Martin temperature site temporal Anette [facility] temperature E&M 96.9 [degF] [facility] Body Mass Index (Ratio) 22.05 kg/m2 Robin ron Matt blood pressure, diastolic, standing 88 mm [Hg] [facility], [facility], standing 116 mm [Hg] [facility] pressure, diastolic 78 mm[Hg] Adina Villalpando blood pressure, systolic 126 mm[Hg] Diane Villalpando oxygen saturation, oximetry 98 % Gaurav Villalpando respiratory rate E&M 18 /min Kathleen Villalpando pulse rate 85 /min Gaurav park weight E&M 136.6 [lb_av] Gaurav simms height E&M 66 [in_i] Gaurav park Body Mass Index (Ratio) 22.76 kg/m2 Robin en Matt blood pressure, cuff size regular Kr isty Vancleve blood pressure, diastolic 70 mm[Hg] Kr isty Vancleve blood pressure, systolic 114 mm[Hg] Kri sty Vancleve pulse rate 73 /min Adelita Daya oxygen saturation, oximetry 100 % Adelita Vancleve respiratory rate E&M 18 /min Adelita Vancleve weight E&M 141 [lb_av] Adelita Daya height E&M 66 [in_i] Adelita Daya Body Mass Index (Ratio) 26.79 kg/m2 Delfin wheeler Dorina blood pressure, diastolic 86 mm[Hg] Adina rc Odrina blood pressure, systolic 147 mm[Hg] Diane shaver Dorina oxygen saturation, oximetry 94 % Gabby Maximino respiratory rate E&M 16 /min Gabby V oss pulse rate 84 /min Gabby Maximino weight E&M 166 [lb_av] Gabby Maximino height E&M 66 [in_i] Gabby Maximino Body Mass Index (Ratio) 26.79 kg/m2 Delfin wheeler Dorina blood pressure, cuff size regular Ke rri Gruenenfcurtiser blood pressure, diastolic 80 mm[Hg] Ke rri Gruenenfelder blood pressure, systolic 130 mm[Hg] Kenneth ri Chirager oxygen saturation, oximetry 98 % Jacquie Bearder respiratory rate E&M 18 /min Jacquie diaz pulse rate 89 /min Jacquie Sid lder weight E&M 166 [lb_av] Jacquie Hansnepetere lder height E&M 66 [in_i] Jacquie Grmeetnenfe lder ALLERGIES No Known Drug Allergies RESULTS Date Observation Value Provider Reference Range Interpretation Location 0 free thyroxine index 2.9 [facility] 1.2-4.9 0 triiodothyronine resin uptake 31 % [facility] 24-39 0 thyroxine, serum, total 9.4 ug/dL [facility] 4.5-12.0 0 calcium, serum 10.1 mg/dL [facility] 8.7-10.3 0 carbon dioxide, venous blood 23 mmol/L [facility] 20-29 0 chloride, serum 103 mmol/L [facility] 96-106 0 potassium, serum 4.6 mmol/L [facility] 3.5-5.2 0 sodium, serum 141 mmol/L [facility] 341-127 7580/05/3 0 urea nitrogen/creatinine ratio, serum [facility] 0 eGFR if 87 mL/min/{1 .73_m2} [facility] >59 0 eGFR if not 75 mL/min/{1 .73_m2} [facility] >59 0 creatinine, serum 0.83 mg/dL [facility] 0.57-1.00 0 urea nitrogen, blood 14 mg/dL [facility] 8-27 0 blood glucose, random 85 mg/dL [facility] 65-99 9 lipoprotein, beta, serum, point, quantitative, calculated 99 mg/dL [facility] 0-99 9 very low density lipoproteins 20 mg/dL [facility] 5-40 9 HDL cholesterol, serum 60 mg/dL [facility] >39 9 triglyceride, serum, random 101 mg/dL [facility] 0-149 9 cholesterol, serum 179 mg/dL [facility] 934-125 1255/02/2 9 basophil count, absolute 0.0 x10E3/uL [facility] 0.0-0.2 9 Eosinophil Absolute Count 0.1 X10E3/UL [facility] 0.0-0.4 9 monocyte count, blood, automated 0.4 X10E3/UL [facility] 0.1-0.9 9 lymphocyte count, blood, automated 1.0 X10E3/UL [facility] 0.7-3.1 9 Absolute Neutrophils 3.3 X10E3/UL [facility] 1.4-7.0 9 basophils as percent of blood leukocytes 0 % [facility] Not Estab. 9 eosinophils as percent of blood leukocytes 2 % [facility] Not Estab. 9 monocytes as percent of blood leukocytes 8 % [facility] Not Estab. 9 lymphocytes as percent of blood leukocytes 20 % [facility] Not Estab. 9 neutrophils as percent of blood leukocytes 70 % [facility] Not Estab. 9 platelet count 268 X10E3/UL [facility] 043-696 4622/02/2 9 red blood cell distribution width 12.8 % [facility] 11.7-15.4 9 mean corpuscular hemoglobin concentration, RBC 33.6 G/DL [facility] 31.5-35.7 9 mean corpuscular hemoglobin, RBC 31.2 pg [facility] 26.6-33.0 9 mean corpuscular volume, RBC 93 fL [facility] 79-97 9 hematocrit, blood 41.1 % [facility] 34.0-46.6 9 hemoglobin, blood 13.8 g/dL [facility] 11.1-15.9 9 erythrocyte (RBC) count 4.43 X10E6/UL [facility] 3.77-5.28 9 leukocyte count, blood 4.8 X10E3/UL [facility] 3.4-10.8 9 alanine aminotransferase (SGPT), serum 13 1/L [facility] 0-32 9 aspartate aminotransferase (SGOT), serum 15 1/L [facility] 0-40 9 alkaline phosphatase, serum 63 1/L [facility] 39-117 9 bilirubin, serum, total 0.4 mg/dL [facility] 0.0-1.2 9 albumin/globulin ratio, serum 2.0 [facility] 1.2-2.2 9 globulin, serum 2.5 [facility] 1.5-4.5 9 albumin, serum 5.1 g/dL [facility] 3.8-4.8 High 9 protein, total, serum 7.6 g/dL [facility] 6.0-8.5 9 calcium, serum 10.6 mg/dL [facility] 8.7-10.3 High 9 carbon dioxide, venous blood 23 mmol/L [facility] 20-29 9 chloride, serum 103 mmol/L [facility] 96-106 9 potassium, serum 5.5 mmol/L [facility] 3.5-5.2 High 9 sodium, serum 144 mmol/L [facility] 895-073 1178/02/2 9 urea nitrogen/creatinine ratio, serum 17 [facility] 12-28 9 eGFR if 82 mL/min/{1 .73_m2} [facility] >59 9 eGFR if not 71 mL/min/{1 .73_m2} [facility] >59 9 creatinine, serum 0.87 mg/dL [facility] 0.57-1.00 9 urea nitrogen, blood 15 mg/dL [facility] 8-27 9 blood glucose, random 85 mg/dL [facility] 65-99 HISTORY OF MEDICATION USE Medication Status Instructions Dates Provider Indications Com [facility] MEDICAL COMPRESSION STOCKINGS active bilateral knee high stockings with 20-30mmhg of compression Ted Parikh CALTRATE 600+D3 TABLET active once a day Jacquie Joseph VITAMIN D3 125 MCG (5000 UT) ORAL CAPSULE active ONE TAB BY MOUTH DAILY Jacquie Joseph VITAMIN B-12 1000 MCG ORAL TABLET active One tablet daily Jacquie Joseph IBANDRONATE SODIUM 150 MG ORAL TABLET active once a month Jacquie Joseph SINGULAIR 10 MG ORAL TABLET active one tab. daily Jacquie Joseph PROPRANOLOL HCL 10 MG ORAL TABLET active up to 3 times a day as needed Jacquieshantel Joseph FLUDROCORTISONE ACETATE 0.1 MG ORAL TABLET active once a day Jacquie Jake FLONASE 50 MCG/ACT NASAL SUSPENSION active 2 SPRAYS EACH NOSTRIL DAILY Gaurav Villalpando ASPIRIN ADULT LOW DOSE 81 MG ORAL TABLET DELAYED RELEASE completed One Tab By Mouth Daily - Jacquie Joseph MONTELUKAST SODIUM 10 MG ORAL TABLET completed take one pill a day - Gaurav Villalpando #0.03, 30 days supply, Prescribed by GABI MICHAELS, Filled 07/30/2018 ATORVASTATIN CALCIUM 10 MG ORAL TABLET active take one pill a day Jacquie Joseph #0.03, 30 days supply, Prescribed by GABI MICHAELS, Filled 07/30/2018 ALPRAZOLAM 0.25 MG ORAL TABLET completed as needed - Gaurav Villalpando #0.005, 5 days supply, Prescribed by GABI MICHAELS, Filled 08/03/2018 FLUTICASONE PROPIONATE 50 MCG/ACT NASAL SUSPENSION completed as directed - Adelita Stapleton #0.016, 30 days supply, Prescribed by GABI MICHAELS, Filled 08/16/2018 SOCIAL HISTORY Date Observation Value Provider social history E&M S moking History: Casa henry is a former smoker. Ted Parikh social history reviewed E&M revi ewed - no changes required Ted Parikh smoking, year quit 1996 Jacquie ann number of years as a smoker 10 a Jacquie Joseph smoking history, tot al pack/day 1/2 ppd Jacquie Joseph cigarette use yes Jacquie gallego smoking status Former smoker Jacquie ross social history reviewed E&M revi ewed - no changes required Enoch Matt smoking, year quit 1996 Poonam Walker jade number of years as a smoker 10 a Poonam Gallegos smoking history, tot al pack/day 1/2 ppd Poonam Gallegos cigarette use yes Poonam Lynne ll smoking status Former smoker Poonam garcia social history reviewed E&M revi ewed - no changes required Enoch Matt smoking, year quit 1996 Poonam Walker josefradha number of years as a smoker 10 a Poonam Gallegos smoking history, tot al pack/day 1/2 ppd Poonam Gallegos cigarette use yes Poonam Lynne ll smoking status Former smoker Poonam garcia social history reviewed E&M revi ewed - no changes required Enoch Matt smoking, year quit 1996 Gaurav Villalpando number of years as a smoker 10 a Gaurav Villalpando smoking history, tot al pack/day 1/2 ppd Gaurav Villalpando cigarette use yes Gaurav Briseno enson smoking status Former smoker Gaurav Larson social history reviewed E&M revi ewed - no changes required Enoch Matt social history reviewed E&M revi ewed - no changes required Chase Cam social history E&M S moking History: Casa henry is a former smoker. Chase Cam smoking, year quit 1996 Gabby Sonya s number of years as a smoker 10 a Gabby Maximino smoking history, tot al pack/day 1/2 ppd Gabby Maximino cigarette use yes Gabby Maximino smoking status Former smoker Gabby Maximino number of grandchildren Michele Cam social history reviewed E&M revi ewed - no changes required Chase Cam social history E&M S moking History: Casa henry is a former smoker. Chase Cam number of years as a smoker 10 a Jacquie Joseph smoking history, tot al pack/day 1/2 ppd Jacquie Joseph smoking, year quit 1996 Jacquie Santos seth cigarette use yes Jacquie gallego smoking status Former smoker Jacquie singher FAMILY HISTORY Family Member Condition Father Family History of Tejada dden Cardiac : Father Family History of CV A or Stroke: Mother Family History of CV A or Stroke: INSURANCE PROVIDERS Payer name Policy type / Coverage type [place] [employer] party ID [facility] [id number] ADVANCE DIRECTIVES Name Date DISCUSSED - NO DECISION MADE TREATMENT PLAN Date Name Performer Cardiology Follow up Ted Parikh Cardiology Follow up Ted Parikh Cardiology: H er updated medication list for this problem includes: Aspirin Adult Low Dose 81 Mg Oral Tablet Delayed Release (Aspirin) ..... One tab by mouth daily [facility] Cardiology: H er updated medication list for this problem includes: Atorvastatin Calcium 10 Mg Oral Tablet (Atorvastatin calcium) ..... Take one pill a day [facility] Cardiology [facility] Cardiology: H er updated medication list for this problem includes: Aspirin Adult Low Dose 81 Mg Oral Tablet Delayed Release (Aspirin) ..... One tab by mouth daily [facility] Cardiology: H er updated medication list for this problem includes: Atorvastatin Calcium 10 Mg Oral Tablet (Atorvastatin calcium) ..... Take one pill a day [facility] Cardiology [facility] Cardiology: H er updated medication list for this problem includes: Aspirin Adult Low Dose 81 Mg Oral Tablet Delayed Release (Aspirin) ..... One tab by mouth daily [facility] Cardiology [facility] Electrophysiology: H er updated medication list for this problem includes: Atorvastatin Calcium 10 Mg Oral Tablet (Atorvastatin calcium) ..... Take one pill a day [facility] Electrophysiology: O rders: C BC (INCLUDES DIFF/PLT) (6399) C OMPREHENSIVE METABOLIC PANEL, W/EGFR (85761) L IPID PANEL (7600) C ortisol (261654) [facility] Electrophysiology:Ho lter Interpretation 12/02/2019: R hythm: Sinus Rhythm/Sinus Tachycardia T he average heart rate was 71 BPM. T he minimum heart rate was 53 BPM. T he maximum heart rate was 125 BPM. N o ventricular ectopics were noted. N o atrial ectopics were noted. [facility] Electrophysiology:la bs today m ay be due to orthostatic hypotension Her updated medication list for this problem includes: Aspirin Adult Low Dose 81 Mg Oral Tablet Delayed Release (Aspirin) ..... One tab by mouth daily [facility] Electrophysiology: H er updated medication list for this problem includes: Atorvastatin Calcium 10 Mg Oral Tablet (Atorvastatin calcium) ..... Take one pill a day [facility] Electrophysiology [facility] Electrophysiology fo llow up: O rders: C omplete Echo (CPT-76627) Chase Dorina Electrophysiology fo llow up: H ome sleep study 08/30/18 was normal, with AHI 4.6. Chase Dorina Electrophysiology fo llow up: 2 -week Telesentry 09/2018: R hythm: Sinus Rhythm. T he average heart rate was 87bpm with a maximum heart rate 134bpm. T he minimum heart rate was 65bpm. & #13;Orders: E KG (CPT-88995) 9 9214 MOD Complex (CPT-79780) S chedule Followup (*) M obile Cardiac Tele (CPT-34182) Her updated medication list for this problem includes: Aspirin Adult Low Dose 81 Mg Oral Tablet Delayed Release (Aspirin) ..... One tab by mouth daily Chase Dorina Electrophysiology fo llow up: A mbulatory BP Report 08/29/18 showed no significant hypertension or hypotension. E R visit on 08/15/18 for CP, dizziness, and near-syncope. No complete syncope. Nuclear stress test 08/16/18 while in the hospital was normal with no evidence of ischemia, EF 71% Per Dr. Velarde: S itting BP: 147/86 S tanding BP: 133/88 Orders: 9 9214 MOD Complex (CPT-14161) S chedule Followup (*) M obile Cardiac Tele (CPT-66044) Her updated medication list for this problem includes: Aspirin Adult Low Dose 81 Mg Oral Tablet Delayed Release (Aspirin) ..... One tab by mouth daily Chase Cam Electrophysiology Ho spital Follow up :Orders: S leep Study Home (CPT-11799) Chase Cam Electrophysiology Ho spital Follow up :Orders: M obile Cardiac Tele (CPT-35809) E KG (CPT-90590) 9 9215 HIGH Complex (CPT-50494) S chedule Followup (*) Her updated medication list for this problem includes: Aspirin Adult Low Dose 81 Mg Oral Tablet Delayed Release (Aspirin) ..... One tab by mouth daily Chase Cam Electrophysiology Ho spital Follow up :By my BP measurement: S itting BP was 130/80, HR 89 bpm. S tanding BP was 128/83, HR 82 bpm. Orders: M obile Cardiac Tele (CPT-17065) E KG (CPT-16321) A mbulatory BP (CPT-03077) 9 9215 HIGH Complex (CPT-67160) S chedule Followup (*) Her updated medication list for this problem includes: Aspirin Adult Low Dose 81 Mg Oral Tablet Delayed Release (Aspirin) ..... One tab by mouth daily Chase Cam Date Name CT Head without cont rast Cortisol THYROID PANEL BASIC METABOLIC PANE L W/EGFR Carotid Duplex Bilat eral Complete Echo Cortisol LIPID PANEL COMPREHENSIVE METABO LIC PANEL, W/EGFR CBC (INCLUDES DIFF/P LT) Holter Monitor 24 Hr Complete Echo HEPATIC FUNCTION SOMMERS EL LIPID PANEL Complete Echo Mobile Cardiac Tele Sleep Study Home Ambulatory BP Mobile Cardiac Tele HISTORY OF PROCEDURES Procedure Date Procedure Name Provider Procedure Notes S tatus EKG Michele Velarde MD comp leted EKG Michele Velarde MD comp leted EKG Michele Velarde MD comp leted EKG Michele Velarde MD comp leted Schedule Followup Michele Velarde MD in 1 yr completed EKG Michele Velarde MD comp leted Event Monitor Michele Velarde MD c ompleted Schedule Followup Michele Velarde MD in 1 mo completed EKG Michele Velarde MD comp leted
--- OUTSIDE RECORDS SUMMARY | 2025-01-16 06:59 | XMS_ITS | Referral Summary ---
Author Organization [facility] Address [address] [place] [address] Care Team Providers Care Reading Recovery Teacher Name Role Phone Tyshawn Bains MD Primary Care Provider [phone] Allergies No known active allergies Medications atorvastatin (LIPITOR) 10 mg tablet Take 1 tablet (10 mg total) by mouth daily Active fludrocortisone 0.1 mg tablet Take 1 tablet (0.1 mg total) by mouth daily Active fluticasone propionate (FLONASE) 50 mcg/actuation nasal spray Administer 2 sprays into each nostril daily Active cholecalciferol (VITAMIN D-3) 2000 unit capsule Take 1 capsule (2,000 Units total) by mouth daily Active acetaminophen (TYLENOL) 325 mg tablet Take 2 tablets (650 mg total) by mouth as needed for pain Active ibandronate (BONIVA) 150 mg tablet Take 1 tablet (150 mg total) by mouth every 30 (thirty) days 1 Active montelukast (SINGULAIR) 10 mg tablet Take 1 tablet (10 mg total) by mouth daily 1 Active propranoloL (INDERAL) 10 mg tablet Take 1 tablet (10 mg total) by mouth 3 (three) times a day as needed Active cyanocobalamin (Vitamin B-12) 50 mcg tabletIndicatio ns:Prevention of Vitamin B12 Deficiency Take 1 tablet (50 mcg total) by mouth daily Active calcium carbonate-vitam in D3 1,250 mg (500 mg elemental)-400 unit chewable tablet Take 1 tablet by mouth daily Active Unithroid 25 mcg tablet Take 1 tablet (25 mcg total) by mouth every morning 2 Active Active Problems Problem Noted Date Diagnosed Date Lightheaded 12/08/2022 SOB (shortness of breath) on exertion 12/08/2022 Burning chest pain 12/08/2022 Hypotension 12/08/2022 Chronic pansinusitis 07/31/2022 Deviated nasal septum 07/31/2022 Balance problems 02/23/2021 Assessment & Plan (02/25/2021 11:09 AM CDT): Ms. Bisi Kuhn is a 65 y.o. female, who presents for evaluation of balance problems. She developed dizziness in early 2019 and frequently needed to catch herself while standing. She rarely has some of those symptoms while sitting and does not have them in supine position. Sitting helps the symptoms. She does not have any preceding symptoms, such as chest pain or shortness of breath, but she may have a sensation of heart racing during the events. The episodes happen multiple times a day and last less than one minute. She has good hearing, but has a constant buzzing in the ears. She was given fludrocortisone after her BP was lower, which did not help with the balance. She also was given propranolol to modulate her heart racing, which she takes as needed. Propranolol has not helped either. She also has new onset of headaches. Her examination was unrevealing and she was not orthostatic in the visit (though had her typical symptoms while testing). She also did not have any signs of neuropathy, parkinsonism or ataxia. History and examination are compatible with balance problems. Etiology of symptoms include pre-syncope neurogenic or cardiogenic and vestibular pathology. Based on the exam, there is no evidence of neurologic damage that could be associated to her symptoms. However, the evaluation of dysautonomia is limited in the clinical setting. She should check BP over the next few days and send us a log of the BP. If no OH, this is less likely to be neurogenic and she should pursue a work-up with her ENT and her lining setter. Plan: - Orthostatic vitals for 2 weeks. If no OH, she should return to ENT for an evaluation. - Discuss with lining setter her symptoms in the upcoming visit. Potential medication side effects were discussed during the encounter. Nonintractable headache 04/16/2020 Systolic murmur 09/20/2018 Palpitations 08/23/2018 Allergic rhinitis 11/22/2017 Hyperlipidemia 03/20/2017 Osteopenia 03/20/2017 Immunizations Immunization Administration Dates Next Due Pfizer SARS-CoV-2 Monovalent Vaccination (12+ Yrs) PURPLE 09/07/2021,02/28/2021,01/31/2021 Social History Tobacco Use Types Packs/Day Years Used Date Smoking Tobacco: Former Smokeless Tobacco: Never Tobacco Cessation:Counseling Given: Not Answered Alcohol Use Standard Drinks/Week Comments Not Currently 0 (1 standard drink = 0.6 oz pur e alcohol) PHQ-2 Answer Date Recorded PHQ-2 Total Score (If total score is 3 or more points, staff should administer the PHQ-9) 2 11/17/2020 Personal Safety Answer Date Recorded Getting School Help Needed Not on file 01/05 Comments Unknown Sex and Gender Information Value Date Recorded Sex Assigned at Not on file Legal Sex Female 2:01 PM CDT Gender Identity Not on file Sexual Orientation Not on file Occupation Industry Job Start Date Job End Date Retired in 2018 Not on file Not on file Not on file Last Filed Vital Signs Vital Sign Reading Time Taken Comments Blood Pressure 136/72 08/05/2024 2:27 PM CDT Pulse 79 08/05/2024 2:27 PM CDT Temperature 36.1 C (96.9 F) 02/23/2021 7:59 AM CDT Respiratory Rate 18 07/31/2022 11:03 AM CDT Oxygen Saturation 98% 08/05/2024 2:27 PM CDT Inhaled Oxygen Concentration - - Weight 61.7 kg (136 lb) 08/05/2024 2:27 PM CDT Height 165.1 cm (5' 5 ) 08/05/2024 2:27 PM CDT Body Mass Index 22.63 08/05/2024 2:27 PM CDT Plan of Treatment Not on file Insurance [facility] H[facility] REF MEDICARE SOLUTIONS MEDICARE SOLUTIONS Member Subscriber Plan / Payer (Ef fective 2022-Present) Name:Hattie Bisi Marc Relation to Subscriber:Self Name:Bisi Kuhn Payer ID:[id number] (NAIC) Type:[employer] MEDICARE Address: [place] [phone] Care Teams Reading Recovery Teacher Relationship Specialty Start Date End Date Tyshawn Bains MD PCP - General 11/17/20
--- OUTSIDE RECORDS SUMMARY | 2025-01-16 06:59 | XMS_ITS | Data Portability ---
Author Organization [place] - [facility] [employer], Main Office Address [address] [place] [address] Care Team Providers Care Surface Hydrologist Name Role Phone NIDIA HERRERA Primary Care Provider [phone] Assessment No assessment recorded. Plan of Treatment Reminders Order Date Submit Date Provider Last Modified By Organization Details Last Modified Time Details Appointments Any 15 2024 02:45P M Nidia Herrera MD Not available Not available Not available Lab TSH, serum or plasma [address] (Lab), [address] [place] [address], [id number], 12/09/2024 08:44:10 T4, free, serum [address] (Lab), [address] [place] [address], [id number], 12/09/2024 15:15:17 T3, free, serum or plasma [address] (Lab), [address] [place] [address], [id number], 12/09/2024 15:15:28 lipid panel, serum [address] (Lab), [address] [place] [address], [id number], 12/09/2024 08:43:48 CMP, serum or plasma [address] (Lab), [address] [place] [address], [id number], 12/09/2024 08:44:00 lipid panel, serum [address] (Lab), [address], [place], [address], 05/16/2023 08:16:55 Referral None recorded. Procedures None recorded. Surgeries None recorded. Imaging CT, chest, w/o contrast - Please call patinet to schedule. 2023 024 [facility], [address], [address], [place], [address], 09/22/2024 18:59:15 CT, chest, w/o contrast - No auth required 2022 023 [facility], [address], [place], [address], 05/10/2023 12:22:46 Medication Orders atorvasta tin 10 mg tablet 2023 024 [facility], [address] [place] [address], [address], [place], [place], [id number], 11/29/2023 10:50:59 fludrocor tisone 0.1 mg tablet 2023 024 [facility], [address], [address], [place], [place], [id number], 11/29/2023 10:50:57 Unithroid 25 mcg tablet 2022 023 [facility] [address] [facility], [address] [place], [address], 08/07/2023 11:45:28 fludrocor tisone 0.1 mg tablet 2022 023 [facility] [id number] [facility], [address] , [place], [address], 08/07/2023 11:45:29 Patient TargetsNo targets recorded. Patient Instructions Encounter Date Encounter Id Patient Instructions Last Modified By Organization Details Last Modified Time 04/09/2024 [id number] dementia rating scale-2* Not available 04/09/2024 12:02:38 alcohol misuse* Not available 04/09/2024 12:02:38 depression screening* Not available 04/09/2024 12:02:38 multi-dimensiona l health assessment questionnaire* [email or web address] Not available 04/09/2024 12:02:38 Personalized Hea lt Plan and Screening Recommendations Advance Directives - Do you have one? No Advance Directives - Do we have your advance directive on file in your health record? Primary Prevention/Interven tion (prevents or decreases the chance of common diseases from occurring) Smoking Risk: Non Smoker Alcohol Misuse Screening: Negative Weight: Appropriate Physical activity: Need more exercise/physical activity Nutrition: Good Average Fall Risk (screened today): Low Vaccines Pneumococcal: Influenza: Your next one in the fall of this year Chronic Disease Risks Stroke: Low Risk Intermediate Risk I have no recommendations Act sweta diagnosis, Continue current treatment plan Heart Attack: Low risk Intermediate Risk I have no recommendations Act sweta diagnosis, Continue current treatment plan Clogging of the Arteries: Low risk Intermediate Risk I have no recommendations Act sweta diagnosis, Continue current treatment plan Diabetes: Low Risk I have no recommendations Secondary Prevention/Interven tion (detects treatable diseases before they may cause symptoms, disability, or ) Breast Cancer Screening with mammogram: Your next mammogram: Ordered Recommended today Cervical/Uterine/Ov dede Cancer Screening: No screening necessary Osteoporosis Screening: Date Screening Last Performed: Colon Cancer Screening: Colonoscopy In: Ordered Recomme nded Date Screening Last Performed: Eye Disease Screening: Dementia Risk: Low I have no recommendations Depression Screening: Negative [email or web address] Not available 04/09/2024 11:09:01 Reason for Referral None Reported. Results Created Date Observation Date Name Description Value Unit Range Abnormal Flag Note LastModifiedBy Organization Detail LastModifiedTime 04/04/20 23 04/04/2023 MAMMO , scree jo ann, digit al, bilat eral No observ ation record ed. [facility] [address], [place], [address], 04/30/2023 12:05:28 04/06/20 23 04/04/2023 bone densi ty No observ ation record ed. [facility] [address], [place], [address], 04/30/2023 12:05:28 04/17/20 23 04/04/2023 bone densi ty No observ ation record ed. [facility] [address], [place], [address], 05/07/2023 16:58:37 05/10/2005/10/2023 CT, chest , w/o contr ast No observ ation record ed. [email or web address] [facility] [address] [facility] [address], [place], [address], 11/29/2023 10:28:30 05/01/20 24 04/30/2024 MAMMO , scree jo ann, digit al, bilat eral No observ ation record ed. [email or web address] [id number] Not Available 2023 16:14:12 09/22/20 24 09/19/2024 CT, chest , w/o contr ast No observ ation record ed. [email or web address] [address] [address], [place], [address], 09/24/2024 15:49:43 Result Notes None recorded. Problems Name Problem SNOMED Code Status Onset Date Resolution Date Notes Provider Name and Address Organization Details Recorded Time History of chest pain 72932001224 482408 Completed 201804/27/2022 Not Available [facility] 3 02:52:16 Transient cerebral ischemia 192921438 Completed 201612/18/2018 Not Available [facility] 3 02:52:16 Osteopeni a 886850842 Active 2016 Not Available [facility] 3 02:52:16 Dizziness 260696641 Active 2021 Not Available [facility] 3 02:52:16 Dizziness 150417814 Completed 201712/18/2018 Not Available [facility] 3 02:52:16 Solitary nodule of lung 582840737 Active 2021 Not Available [facility] 3 02:52:16 Low blood pressure 56820227 Active 2021 Not Available [facility] 3 02:52:16 Hyperlipi demia 53249383 Active 2016 Not Available [facility] 3 02:52:16 Allergic rhinitis 80468341 Active 2018 Not Available [facility] 3 02:52:17 Hypotensi ve episode 06018798 Active 2021 PRERNA WaggonerA null, [employer] [facility] 4 14:49:38 Rhinitis 82329416 Completed 201705/24/2021 Not Available [facility] 3 02:52:17 Nodule of lung 992990808 Active 2020 Not Available [facility] 3 02:52:17 Hypothyro idism 69968629 Active 2022 JENNI Waggoner, [employer] [facility] 4 14:49:36 Orthostat ic hypotensi on 68450224 Active 2022 Maite Eli MD [address], [address] , [employer] [facility] 3 12:40:26 Osteoporo sis 87885992 Active 2022 Nidia Herrera MD [address], [address] [address], [place], [address] , [employer] [facility] 3 09:45:10 Postmenop ausal osteoporo sis 433635356 Active 2022 JENNI Pineda, [employer] [facility] 3 09:24:15 Notes:Medical History: Bilat eral tinnitus Rhinitis Eosinophils 140/uL IgE 56 IU/mL Chepe's thyroiditis Alpha-1 antitrypsin PiMM 131 mg% (+) SABRINA 1:160 homogeneous Bilateral pulmonary nodules EF 65% Hiatal hernia Hyperlipidemia Vit D deficiency Osteopenia Procedure History: Bilateral lasik surgery 2003 Problem Notes Documentation Provider Name and Address Organization Details Recorded Time Endocrinology Note : [facility] [address], [facility] [address]JDNSJTBisi Marc (id #[id number], : 1955) Documents sent via fax will include the following message: This fax may contain sensitive and confidential personal health information that is being sent for the sole use of the intended recipient. Unintended recipients are directed to securely destroy any materials received. You are hereby notified that the unauthorized disclosure or other unlawful use of this fax or any personal health information is prohibited. To the extent patient information contained in this fax is subject to 42 CFR Part 2, this regulation prohibits unauthorized disclosure of these records. If you received this fax in error, please visit [email or web address] to notify the sender and confirm that the information will be destroyed. If you do not have internet access, please call to notify the sender and confirm that the information will be destroyed. Thank you for your attention and cooperation. [ID:[id number]][facility] [employer] [facility] [address] [place] [address] , Date: 08/07/2023RE: Bisi Kuhn, : 1955, PT ID #[id number] Herrera MD, I would like to thank you for referring Bisi Kuhn to our practice for consultation and evaluation of FU ON LABS , on 08/07/2023. I have enclosed a copy of the office evaluation for your records. Once again, thank you for allowing me to participate in the care of this patient. Sincerely, Electronically Signed by: MAITE ELI MD Encounter Reason/Date FU ON LABS 08/07/2023 - 10:30AM - [facility] [place] Problems:Reviewed Problems Hypothyroidism - Onset: 02/20/2023 Hyperlipidemia - Onset: 03/20/2017 Low blood pressure - Onset: 04/27/2022 Orthostatic hypotension - Onset: 02/20/2023 Hypotensive episode - Onset: 11/02/2022 Allergic rhinitis - Onset: 12/18/2018 Nodule of lung - Onset: 05/06/2021 Osteoporosis - Onset: 04/09/2023 Postmenopausal osteoporosis - Onset: 04/19/2023 Osteopenia - Onset: 03/20/2017 Dizziness - Onset: 04/27/2022 Solitary nodule of lung - Onset: 04/27/2022 Medical History: Bilateral tinnitus Rhinitis Eosinophils 140/uL IgE 56 IU/mL Chepe's thyroiditis Alpha-1 antitrypsin PiMM 131 mg% (+) SABRINA 1:160 homogeneous Bilateral pulmonary nodules EF 65% Hiatal hernia Hyperlipidemia Vit D deficiency Osteopenia Procedure History: Bilateral lasik surgery 2003 Allergies: Reviewed Allergies NKDA Medications: Reviewed Medications NameDate Source atorvastatin 10 mg tabletTAKE 1 TABLET BY MOUTH DAILY05/28/23 filled surescripts cyanocobalamin (vit B-12) 1,000 mcg tabletTake 1 tablet(s) every day by oral route in the morning for 30 days., start started MIGRATION.[id number] fludrocortisone 0.1 mg tabletTAKE 1 TABLET BY MOUTH TWICE DAILY08/07/23 prescribed Maite Eli MD fluticasone propionate 50 mcg/actuation nasal spray,suspensionUSE 2 SPRAYS IN BOTH NOSTRILS ONCE DAILY04/09/23 filled surescripts ibandronate 150 mg tabletTAKE 1 TABLET BY MOUTH ONCE HCRUBPM03/23/23 filled surescripts montelukast 10 mg tabletTAKE 1 TABLET BY MOUTH ONCE DAILY05/28/23 filled surescripts propranoloL 10 mg tabletTAKE 1 TABLET BY MOUTH 3 TIMES DAILY EFORGS56/17/23 filled MIGRATION.7653018660 Unithroid 25 mcg tabletTAKE 1 TABLET BY MOUTH EVERY DAY IN THE DUZYCGE55/03/23 prescribed Maite Eli MD Vitamin D3QD, start started MIGRATION.[id number] Family History:Family History not reviewed (last reviewed 04/30/2023) Father - Heart disease - Essential hypertension Brother - Heart disease Sister - Heart disease - Neoplasm of bone marrow Maternal Uncle - Diabetes mellitus Social History:Social History not reviewed (last reviewed 04/30/2023) Substance UseDo you or have you ever smoked tobacco?: Former smoker (Notes: quit 20 years ago)How much tobacco do you smoke?: 1/2 pack per dayHow much tobacco do you chew?: noneAt what age did you start smoking tobacco?: 19What was the date of your most recent tobacco screening?: 06/06/2022What is your level of alcohol consumption?: NoneDo you use any illicit or recreational drugs?: NoWhich illicit or recreational drugs have you used?: noneWhat is your level of caffeine consumption?: OccasionalActivities of Daily LivingAre you able to care for yourself?: YesAre you blind or do you have difficulty seeing?: NoAre you deaf or do you have serious difficulty hearing? : NoDo you have difficulty concentrating, remembering or making decisions?: NoDo you have difficulty walking or climbing stairs?: NoDo you have difficulty dressing or bathing?: NoDo you have difficulty doing errands alone?: NoAre you able to walk?: Yes: walks without restrictionsDo you have transportation difficulties?: NoPublic Health and TravelHave you recently traveled abroad?: NoIn the 14 days before symptom onset, have you had close contact with a laboratory-confirmed COVID-19 while that case was ill?: NoIn the 14 days before symptom onset, have you had close contact with a person who is under investigation for COVID-19 while that person was ill?: NoDiet and ExerciseWhat type of diet are you following?: RegularWhat is your exercise level?: OccasionalMarriage and SexualityWhat is your relationship status?: MarriedGender Identity and LGBTQ IdentityGender identity: Identifies as FemaleAssigned sex at : FemaleSurgical HistorySurgical History not reviewed (last reviewed 04/30/2023) None Additional HistoryNone recordedHistory of Present Illness:68 yo female comes in for follow up in management of hypothyroidism, orthostatic hypotension last seen in February at that time we continued unithroid 25 mcg daily along with florinef 0.1 mg twice daily (half if less needed). She has low energy level, up and mostly active during the day. She is sleeping well at night. She does struggle with some dizziness. Her blood pressure is in range on the florinef-once daily -whole tablet.She does test her BP regularly- usually around 118-122 / 60-70mmHg. labs from 08/03/23:ousmane 8.7 mg/dLPTH 70.1 pg/mLglucose 87 mg/dLCr normalLFT xspuur924/69/62/85TSH of 1.980 uIU/mlvit D 57.9 ng/mLFT4 of 1.28 ng/dL Review of Systems:ROS as noted in the HPIPhysical ExamConstitutional:General Appearance: healthy-appearing, well-nourished, well-developed, not anxious/nervous, and no sweating. Level of Distress: no acute distress. Eyes:Lids and Conjunctivae: no discharge, pallor, lid lag, or periorbital edema and non-injected. Neck:Neck: supple, trachea midline, no masses, and full range of motion. Thyroid: no enlargement or nodules and non-tender. Neck vessels: no carotid bruits or thyroid bruits. Lymph Nodes: no anterior cervical LAD, posterior cervical LAD, submandibular LAD, submental LAD, preauricular LAD, or supraclavicular LAD. Cardiovascular:Apical Impulse: not displaced. Heart Auscultation: normal S1 and S2; no murmurs, rubs, or gallops; and regular rate and rhythm. Lungs:Auscultation: no wheezing, rales/crackles, or rhonchi and breath sounds normal, good air movement, and clear to auscultation. Psychiatric:Mental Status: normal mood and affect, no diffuse anxiety or paranoid ideations, and active and alert.Procedure DocumentationNone recordedAssessment/Plan1. Hypothyroidism-TSH and FT4 in ideal range- continue on unithroid 25 mcg daily. She was reminded to take her unithroid on empty stomach with glass of water and wait one hour to eat or have her coffee in morning and up to 4 hours if ever taking any heartburn or reflux medications to help optimize absorption. Discussed paleo like diet with restriction of GMOs to help with energy and to optimize absorption of vitamins and minerals and reduce inflammation.E03.9: Hypothyroidism, unspecified Unithroid 25 mcg tablet - TAKE 1 TABLET BY MOUTH EVERY DAY IN THE MORNING Qty: (90) tablet Refills: 4 JANIE: Y Pharmacy: [facility] [place] 2. Orthostatic hypotension-Continue on florinef 0.1 mg up to twice daily if needed - she is aware she can take every other day if she wakes up with BP closer to 120-130 systolic range as this will maintain effect as she has met steady state. She is also aware she can take half tablet if her pressures are close to ideal range- her systolic appears to be running lower on her busy days so encouraged to take two tablets on her days where she is out the majority of the day to help prevent lows. Spent up to 25 minutes preparing to see the patient (eg, review of tests), obtaining and/or reviewing separately obtained history, performing a medically appropriate examination and evaluation, counseling and educating the patient, ordering medications, tests, along with documenting clinical information in the electronic health record, independently interpreting results and communicating results to the patient. Patient can be followed by PCP - she/he is aware of my resignation and last day of August 17. If needed his/her PCP can refer patient to another lay brother in the area. All questions /concerns answered and refills necessary at visit today.I95.1: Orthostatic hypotension fludrocortisone 0.1 mg tablet - TAKE 1 TABLET BY MOUTH TWICE DAILY Qty: (180) tablet Refills: 4 Pharmacy: [facility] [place] Return to Office Patient will return to the office as needed Nidia Herrera MD [address] [place] [address], [address] [address], [place], [address], [employer] 08/08/2023 13:25:30 Procedures Surgical History Date Name Laterality Status Provider Name and Address Organization Details Recorded Time Medicare Wellness CPT Code, Initial completed Alla Osborn RN [employer] 04/09/2024 11:04:06 Imaging Results Imaging Date Name Status LastModified by Jaskaran ellis Details LastModified Time 04/04/2023 MAMMO, screening, digital, bilateral [facility] [address] [place] [address], [address], 04/30/2023 12:05:28 04/04/2023 bone density completed [facility] [address] [facility] [address], [place], [address], 04/30/2023 12:05:28 04/04/2023 [facility] [address] [facility] [address], [place], [address], 05/07/2023 16:58:37 05/10/2023 CT, chest, w/o contrast completed [email or web address], [place], [address], 11/29/2023 10:28:30 04/30/2024 MAMMO, screening, digital, bilateral completed Information not available 08/27/2024 16:14:12 09/19/2024 CT, chest, w/o contrast completed [email or web address] [facility] [address], [place], [address], 09/24/2024 15:49:43 Procedure Notes None recorded. Medical Equipment None Reported. Allergies No known drug allergies Medications Name Sig Start Date Stop Date Status Note LastModified by Organization Details LastModified Time prednisone 10 mg tablet take [id number], [id number], 1x2 days 12/18 completed Not Available Not Available Not Available atorvastati n 10 mg tablet TAKE 1 TABLET BY MOUTH DAILY 2024 active Not Available Not Available Not Avai lable prednisone 20 mg tablet 12/25 completed Not Available Not Available Not Available cyanocobala min (vit B-12) 1,000 mcg tablet Take 1 tablet every day by oral route in the morning for 30 days. 2020 active Not Available Not Available Not Avai lable meclizine 12.5 mg tablet Take 1 tablet 3 times a day by oral route. 06/11 completed Not Available Not Available Not Available aspirin 81 mg tablet,be yed release Take 1 tablet every day by oral route. 09/03 completed Not Available Not Available Not Available propranolol 10 mg tablet TAKE 1 TABLET BY MOUTH 3 TIMES DAILY NEEDED 04/09 completed Not Available Not Available Not Available alprazolam 0.25 mg tablet TAKE ONE TABLET BY MOUTH DAILY NEEDED active Not Available Not Available No t Available prednisolon e acetate 1 % eye drops,suspe nsion INSTILL 1 DROP INTO EACH EYE FOUR TIMES DAILY FOR 1 WEEK active Not Available Not Available No t Available dexamethaso ne 1 mg tablet TAKE 1 TABLET NEEDED BY ORAL ROUTE AT BEDTIME FOR 1 DAY. active Not Available Not Available No t Available meclizine 25 mg tablet Take 1 tablet 3 times a day by oral route. 12/18 completed Not Available Not Available Not Available Bactroban 2 % topical ointment apply once daily to affected area 11/22 completed Not Available Not Available Not Available cephalexin 500 mg capsule 06/09 completed Not Available Not Available Not Available clotrimazol e-betametha sone 1 %-0.05 % topical cream APPLY TOPICALLY TWICE A DAY active Not Available Not Available No t Available montelukast 10 mg tablet TAKE 1 TABLET BY MOUTH ONCE DAILY 2024 active Not Available Not Available Not Avai lable hydroxyzine HCl 25 mg tablet 12/25 completed Not Available Not Available Not Available Baby Aspirin 81 mg chewable tablet Chew 1 tablet every day by oral route. 09/07 completed Not Available Not Available Not Available Unithroid 25 mcg tablet TAKE 1 TABLET BY MOUTH EVERY DAY IN THE MORNING active Not Available Not Available No t Available levofloxaci n 750 mg tablet TAKE 1 TABLET BY MOUTH EVERY DAY active Not Available Not Available No t Available albuterol sulfate HFA 90 mcg/actuati on aerosol inhaler TAKE 2 PUFFS EVERY 4 HOURS NEEDED active Not Available Not Available No t Available fluticasone propionate 50 mcg/actuati on nasal spray,suspe nsion USE 2 SPRAYS IN BOTH NOSTRILS ONCE DAILY active Not Available Not Available No t Available fludrocorti sone 0.1 mg tablet TAKE 1 TABLET BY MOUTH TWICE DAILY active Not Available Not Available No t Available diazepam 5 mg tablet TAKE 1 TABLET BY MOUTH EVERY 6 HOURS NEEDED FOR ANXIETY active Not Available Not Available No t Available amoxicillin 875 mg-potassiu m clavulanate 125 mg tablet TAKE 1 TABLET BY MOUTH TWICE A DAY FOR 7 DAYS 08/01 completed Not Available Not Available Not Available risedronate 35 mg tablet takes 1 week 11/22 completed Not Available Not Available Not Available ibandronate 150 mg tablet TAKE 1 TABLET BY MOUTH ONCE MONTHLY active Not Available Not Available No t Available Vitamin D3 QD 2019 active Not Available Not Available Not Avai lable Calcium 500 + D QD 04/26 completed Not Available Not Available Not Available Tirosint 13 mcg capsule TAKE ONE CAPSULE BY MOUTH DAILY IN MORNING WITH WATER FOR 90 DAYS 02/20 completed Not Available Not Available Not Available Yuvafem 10 mcg vaginal tablet 03/20 completed Not Available Not Available Not Available [employer] Delia 14 Day Sensor kit USE DIRECTED active Not Available Not Available No t Available Flucelvax Quad 60 mcg (15 mcg x 4)/0.5 mL intramuscul ar susp 12/25 completed Not Available Not Available Not Available Flucelvax Quad 60 mcg (15 mcg x 4)/0.5 mL intramuscul ar susp active Not Available Not Available Not Available Vitals Date Recorded Body height Body mass index (BMI) Body weight Body temperature Heart rate Oxygen saturation Oxygen saturation in Arterial blood by Pulse oximetry Systolic blood pressure Diastolic blood pressure Provider Name and Address Organization Details Last Updated DateTime 3 165.1 cm 21 kg/m2 62757.6 4 g 97.4 [degF] 75 /min 98 % 98 % 122 mm[Hg] 64 mm[Hg] JENNI Champion [place] 2[employer]c [facility] [employer] 3 11:41:26 Date Recorded Body height Body mass index (BMI) Body weight Body temperature Respiratory rate Heart rate Systolic blood pressure Diastolic blood pressure Provider Name and Address Organization Details Last Updated DateTime 3 165.1 cm 22.3 kg/m2 25491.1 g 97.7 [degF] 14 /min 73 /min 107 mm[Hg] 69 mm[Hg] Xiomara Sue RN [facility] [employer] 3 11:25:50 Date Recorded Body height Body mass index (BMI) Body weight Body temperature Heart rate Oxygen saturation Oxygen saturation in Arterial blood by Pulse oximetry Systolic blood pressure Diastolic blood pressure Provider Name and Address Organization Details Last Updated DateTime 4 165.1 cm 22.8 kg/m2 45213.1 5 g 97.3 [degF] 70 /min 99 % 99 % 118 mm[Hg] 70 mm[Hg] Emilia Queenlesia radha [facility] [employer] [facility] 4 10:41:43 Date Recorded Body height Body mass index (BMI) Body weight Heart rate Oxygen saturation Oxygen saturation in Arterial blood by Pulse oximetry Systolic blood pressure Diastolic blood pressure Provider Name and Address Organization Details Last Updated DateTime 4 165.1 cm 22.6 kg/m2 22419.5 6 g 74 /min 99 % 99 % 126 mm[Hg] 80 mm[Hg] Sarah Gonzalez [facility] [employer] [facility] 4 10:22:48 Date Recorded Pain severity - 0-10 verbal numeric rating [Score] - Reported Provider Name and Address Organization Details Last Updated DateTime 04/09/2024 0 Alla Osborn RN [facility] [employer] [facility] 04/09/2024 11:04:22 Date Recorded Body height Body mass index (BMI) Body weight Body temperature Heart rate Oxygen saturation Oxygen saturation in Arterial blood by Pulse oximetry Systolic blood pressure Diastolic blood pressure Provider Name and Address Organization Details Last Updated DateTime 4 165.1 cm 22.8 kg/m2 36587.1 5 g 97.6 [degF] 88 /min 98 % 98 % 122 mm[Hg] 70 mm[Hg] Emilia garcia [facility] [employer] [facility] 4 15:37:55 Social History Question Answer Notes LastModified by Organizat ion Details LastModified Time Tobacco Smoking Status Former Smoker quit 20 years ago Not Available [facility] 01/03/2023 02:33:00 Do You Have An Advance Directive? No Information not available 04/09/2024 What Is Your Level Of Alcohol Consumption? None MIGRATION.[id number] Information not available 01/03/2023 Are You Blind Or Do You Have Difficulty Seeing? No MIGRATION.15962 [id number] Information not available 01/03/2023 What Is Your Level Of Caffeine Consumption? Occasional MIGRATION.49974 [id number] Information not available 01/03/2023 How Much Tobacco Do You Chew? None MIGRATION.94925 63855 Information not available 01/03/2023 In The 14 Days Before Symptom Onset, Have You Had Close Contact With A Laboratory-confi rmed COVID-19 While That Case Was Ill? No MIGRATION.02189 62081 Information not available 01/03/2023 In The 14 Days Before Symptom Onset, Have You Had Close Contact With A Person Who Is Under Investigation For COVID-19 While That Person Was Ill? No MIGRATION.46221 09146 Information not available 01/03/2023 Are You Deaf Or Do You Have Serious Difficulty Hearing? No MIGRATION.95086 25590 Information not available 01/03/2023 What Type Of Diet Are You Following? REGULAR MIGRATION.83004 92298 Information not available 01/03/2023 Which Illicit Or Recreational Drugs Have You Used? None MIGRATION.17873 00433 Information not available 01/03/2023 Have There Been Any Changes To Your Family Or Social Situation? No [email or web address] Information not available 04/09/2024 What Is The Fluoride Status Of Your Home? Unknown [email or web address] Information not available 04/09/2024 [email or web address] Information not available 04/09/2024 Are You Able To Care For Yourself? Yes Information not available 04/09/2024 Are You Blind Or Do Yo Have Difficulty Seeing? No [email or web address] Information not available 04/09/2024 Are You Deaf Or Do You Have Serious Difficulty Hearing? No Information not available 04/09/2024 Live Alone Of With Others? With Others [email or web address] Information not available 04/09/2024 Do You Have A Medical Power Of Car Rental Manager? No [email or web address] Information not available 04/09/2024 What Was The Date Of Your Most Recent Tobacco Screening? 04/09/2024 [email or web address] Information not available 04/09/2024 Do You Have Any Pets? No [email or web address] Information not available 04/09/2024 What Is Your Relationship Status? MIGRATION.98017 25288 Information not available 01/03/2023 Do You Use Your Seat Belt Or Car Seat Routinely? Yes [email or web address] Information not available 04/09/2024 Do You Have Smoke And Carbon Monoxide Detectors In Your Home? Yes [email or web address] Information not available 04/09/2024 At What Age Did You Start Smoking Tobacco? 19 MIGRATION.89513 45767 Information not available 01/03/2023 How Much Tobacco Do You Smoke? 0.5 PPD MIGRATION.66289 03412 Information not available 01/03/2023 Do You Use Any Illicit Or Recreational Drugs? No MIGRATION.80776 99705 Information not available 01/03/2023 Have You Recently Traveled Abroad? No MIGRATION.73335 67205 Information not available 01/03/2023 Sex: Female Functional Status Question Answer Note LastModified by Organizat ion Details LastModified Time Do you have difficulty walking or climbing stairs? No MIGRATION.[id number] 026 Information not available 01/03/2023 Do you have transportation difficulties? No MIGRATION.[id number] 026 Information not available 01/03/2023 Are you able to walk? YESWOREST MIGRATION.[id number] 026 Information not available 01/03/2023 Do you have difficulty doing errands alone? No MIGRATION.6647883 026 Information not available 01/03/2023 Are you able to care for yourself? Yes MIGRATION.[id number] 026 Information not available 01/03/2023 Do you have difficulty dressing or bathing? No MIGRATION.6246853 026 Information not available 01/03/2023 What is your exercise level? Occasional MIGRATION.[id number] 026 Information not available 01/03/2023 Mental Status Question Answer Note LastModified by Organizat ion Details LastModified Time Do you have difficulty concentrating, remembering or making decisions? No MIGRATION.[id number] 6 Information not available 01/03/2023 Family History Relationship Description Onset Age of this Age Resolved Age Notes LastModified by Organization Details LastModified Time Father Heart disease MIGRATION.742 [id number] Not available 01/03/2023 02:43:16 Father Essential hypertension MIGRATION.154 [id number] Not available 01/03/2023 02:43:16 Brother Heart disease MIGRATION.579 [id number] Not available 01/03/2023 02:43:16 Sister Heart disease MIGRATION.404 [id number] Not available 01/03/2023 02:43:16 Sister Neoplasm of bone marrow MIGRATION.679 [id number] Not available 01/03/2023 02:43:16 Maternal Uncle Diabetes mellitus MIGRATION.404 [id number] Not available 01/03/2023 02:43:16 Medical History Condition Response OSTEOPOROSIS Y HEADACHES/MIGRAINES Y DIZZINESS Y HIGH CHOLESTEROL / HYPERLIPIDEMIA Y Gynecological HistoryNo gynecological history recorded. Obstetrics History GPAL:G 0 P 0 0 0 0 Immunizations Vaccine Type Date Status Note Provider Nam e and Address Organization Details Recorded Time COVID-19, mRNA, LNP-S, PF, 30 mcg/0.3 mL dose 1 completed Not Available [facility] 01/03/2023 03:05:59 COVID-19, mRNA, LNP-S, PF, 30 mcg/0.3 mL dose 1 completed Not Available [facility] 01/03/2023 03:05:59 COVID-19, mRNA, LNP-S, PF, 30 mcg/0.3 mL dose 1 completed Not Available [facility] 01/03/2023 03:05:59 Influenza, split virus, quadrivalent, preservative 0 completed Not Available [facility] 01/03/2023 03:06:00 Influenza, split virus, quadrivalent, preservative 9 completed Not Available [facility] 01/03/2023 03:06:00 Influenza, split virus, quadrivalent, PF 7 completed Not Available [facility] 01/03/2023 03:06:00 Past Encounters Encounter ID Performer Location Encounter Start Date Encounter Closed Date Diagnosis/Indication Diagnosis SNOMED-CT Code Diagnosis ICD10 Code Diagnosis Note [id number] [facility] Internal Med [facility] [address] [facility] [place] [address] 01/14/2021 00:00:00 01/14/2021 12:39:50 [id number] _ATHENA_M IGRATION_ DEFAULT_1 _1 , 01/20/2021 00:00:00 01/20/2021 12:08:36 [id number] _ATHENA_M IGRATION_ DEFAULT_1 _1 , 04/28/2021 00:00:00 04/28/2021 13:40:34 [id number] S_[facility] Pulmonolo gy [address] [address] 05/30/2021 00:00:00 05/30/2021 10:34:34 [id number] [facility] [address] [facility] [place] [address] 06/17/2021 00:00:00 06/17/2021 13:10:02 [id number] _ATHENA_M IGRATION_ DEFAULT_1 _1 , 07/28/2021 00:00:00 07/28/2021 13:48:02 [id number] [facility] [address] [place] [address] 10/31/2021 00:00:00 10/31/2021 12:02:25 [id number] _ATHENA_M IGRATION_ DEFAULT_1 _1 , 11/24/2021 00:00:00 11/24/2021 11:09:04 [id number] [facility] Internal [facility] [address] [facility] [place] [address] 04/27/2022 00:00:00 04/27/2022 14:41:18 [id number] [facility] Pul[facility] [address] [place] [address] 06/06/2022 00:00:00 06/06/2022 15:12:18 [id number] [facility] [place] [place] [address] [place] [address] 08/25/2022 00:00:00 08/25/2022 21:01:21 [id number] [facility] [place] [address] [address] 11/07/2022 00:00:00 11/07/2022 11:24:23 [id number] Maite Eli MD [facility] [place] [address] [place] [address] 02/20/2023 12:15:46 02/20/2023 12:44:41 Hypothyroidism 33296404 E03.9 TSH borderline with normal free hormones- will repeat in March to see if we can make a dose adjustment in her unithroid- she is on 25 mcg currently and tolerating well- sleeping better but mild fatigue. She might be able to bump her dose to two tablets on Mon/Sun/ and continue on the one tablet all other days. She was reminded to take her unithroid on empty stomach with glass of water and wait one hour to eat or have her coffee in morning and up to 4 hours if ever taking any heartburn or reflux medication s to help optimize absorption . Discussed paleo like diet with restrictio n of GMOs to help with energy and to optimize absorption of vitamins and minerals and reduce inflammati on. Screening for malignant neoplasm of colon 539514465 Z12.11 refer to gastroente rology as patient due for screening scan. Orthostati c hypotension 25820656 I95.1 Continue on florinef 0.1 mg up to twice daily if needed - she is aware she can take every other day if she wakes up with BP closer to 120-130 systolic range as this will maintain effect as she has met steady state. She is also aware she can take half tablet if her pressures are close to ideal range- but no futher issues with dizziness/ off balance sensation. Spent up to 26 minutes preparing to see the patient (eg, review of tests), obtaining and/or reviewing separately obtained history, performing a medically appropriat e examinatio n and evaluation , counseling and educating the patient, ordering medication s, tests, along with documentin g clinical informatio n in the electronic health record, independen tly interpreti ng results and communicat ing results to the patient. RTC in 6 months. Patient was provided a handwritte n lab order which contains our fax number. If she chooses to go outside of the [facility] system to obtain labwork she was advised to provide our fax number and my informatio n to the lab she will be obtaining labwork from in order to have her labs properly forwarded over for me to review so there is no loss of follow up due to use of outside network. She was also advised to contact our clinic informing us that she has completed her labwork so we are aware we will need to reach out to the appropriat e laboratory to request her results be forwarded to us so I might have the ability to review and make further medical decision making in her case. She voiced understand ing. [id number] Nidia Herrera MD [facility] [address] 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 [place] [place] [address] [place] [address] 08/07/2023 11:16:46 08/07/2023 11:47:17 Hypothyroidism 79282886 E03.9 TSH and FT4 in ideal range- continue on unithroid 25 mcg daily. She was reminded to take her unithroid on empty stomach with glass of water and wait one hour to eat or have her coffee in morning and up to 4 hours if ever taking any heartburn or reflux medication s to help optimize absorption . Discussed paleo like diet with restrictio n of GMOs to help with energy and to optimize absorption of vitamins and minerals and reduce inflammati on. Orthostati c hypotension 26833377 I95.1 Continue on florinef 0.1 mg up to twice daily if needed - she is aware she can take every other day if she wakes up with BP closer to 120-130 systolic range as this will maintain effect as she has met steady state. She is also aware she can take half tablet if her pressures are close to ideal range- her systolic appears to be running lower on her busy days so encouraged to take two tablets on her days where she is out the majority of the day to help prevent lows. Spent up to 25 minutes preparing to see the patient (eg, review of tests), obtaining and/or reviewing separately obtained history, performing a medically appropriat e examinatio n and evaluation , counseling and educating the patient, ordering medication s, tests, along with documentin g clinical informatio n in the electronic health record, independen tly interpreti ng results and communicat ing results to the patient. Patient can be followed by PCP - she/he is aware of my resignatio n and last day of August 17. If needed his/her PCP can refer patient to another endocrinol ogist in the area. All questions /concerns answered and refills necessary at visit today. [id number] Nidia Herrera MD [facility] Internal Med [facility] [address] [facility] [place] [address] 11/29/2023 10:21:38 11/29/2023 11:04:29 Hyperlipidemia 24176408 E78.5 on meds Osteopenia 007692471 M85 .80 on vit D History of chest pain 16 97353256 6470552 Z87.898 stress test, Holter, sleep study neg in 2018 Low blood pressure 21439 003 I95.9 Florinef ceasarin g it, Allergic rhinitis 747316 04 J30.9 meds help Solitary n odule of lung 823792667 R91.1 CT chest 05/27, 6 mm nodule Dizziness 894155873 R42 better Adult heal th examination 926012243 Z00.00 Colonoscop y- >10 yrs ago, aware that it is due, will let me know when wantsColo- guard - 2018 - NEGMammogr am- ex a- 03/2023FLU - 3COV ID- 01/31-, 02/28/2021 Hypothyroidism 68394967 E03.9 on meds Orthostati c hypotension 80404271 I95.1 stable with meds [id number] Nidia Herrera MD [facility] Internal Med [facility] [address] [facility] [place] [address] 04/09/2024 10:16:22 04/09/2024 11:04:35 Hyperlipidemia 84320777 E78.5 on meds History of chest pain 16 94188865 2184079 Z87.898 stress test, Holter, sleep study neg in 2018 Allergic rhinitis 755743 04 J30.9 meds help Solitary n odule of lung 776678404 R91.1 CT chest 05/27, 6 mm nodule, order next time Dizziness 448596762 R42 advised to see neurology at [facility] Adult heal th examination 229843959 Z00.00 Colonoscop y- >10 yrs ago, aware that it is due, will let me know when wantsColo- guard - 2017 - NEGMammogr am- 03/2023- ScheduledP neumovax- wants to waitDexa- 03/2023FLU - OV ID- , 02/28/2021 Hypothyroidism 35910391 E03.9 on meds , TO SEE NEW ENDO Orthostati c hypotension 53453876 I95.1 stable with meds Screening for disorder 852362695 Z13.9 [id number] Nidia Herrera MD [facility] [address] [place] [address] 08/27/2024 15:15:41 08/27/2024 16:37:56 Hyperlipidemia 94782027 E78.5 on meds History of chest pain 16 11713075 1037921 Z87.898 stress test, Holter, sleep study neg in 2018 Allergic rhinitis 608740 04 J30.9 meds help Solitary n odule of lung 001264764 R91.1 CT chest 05/27, 6 mm nodule, Dizziness 251739001 R42 to see neurology at [facility], STILL HAS MILD SYMPTOMS Adult heal th examination 418776444 Z00.00 Colonoscop y- >10 yrs ago, aware that it is due, will let me know when wantsColo- guard - 2017 - NEGMammogr am- 04/30/24Pn eumovax- wants to waitDexa- 03/2023FLU - 08/26/2024 (Beatrice )COVID- , 02/28/2021 [employer], FORMS SIGNED Hypothyroidism 73662358 E03.9 on meds , Orthostati c hypotension 66438320 I95.1 stable with meds Health Concerns Section Related Observation LastModified by Organization Detai ls LastModified Time None Recorded Concern Status LastModified by Organization Details LastModified Time None Recorded Advance Directives Directive N: Payers Encounter Date Sequence Insurance Name Policy Number Policy Hewitt Covered Member ID Hewitt Member ID Guarantor Name 04/30/2023 1 [facility] (MEDICARE REPLACEMENT/A DVANTAGE - HMO) [id number] Bisi A Frisse [id number] Bisi A Frisse 08/07/2023 1 [facility] (MEDICARE REPLACEMENT/A DVANTAGE - HMO) [id number] Bisi A Frisse [id number] Bisi A Frisse 11/29/2023 1 [facility] (MEDICARE REPLACEMENT/A DVANTAGE - HMO) [id number] Bisi A Frisse [id number] Bisi A Frisse 04/09/2024 1 [facility] (MEDICARE REPLACEMENT/A DVANTAGE - HMO) [id number] Bisi A Frisse [id number] Bisi A Frisse 08/27/2024 1 [facility] (MEDICARE REPLACEMENT/A DVANTAGE - HMO) [id number] Bisi A Frisse [id number] Bisi A Frisse Notes Date Note Type Note Provider Name and Address Organization Details Recorded Time 04/30/2023 text/html She is here toda y for her routine follow up. She has not been seen since 04/2022 Hyperlipidemia- on med and under control, TC 176Meds- atorvastatin 10 mg qd Rhinitis- meds helptakes singular and flonase, Osteopenia- OTC calcium + D,Med- Ibandronate 150 mg once a month, from gyne Orthostatic hypotension/Low BP- has been checking bp at home betterMeds- fludrocortisone 0.1 mg, Propanolol 10 mg TID PRN, seeing endo dr alcira Barker nodule- recent CT showed no change, PET 10/25, no abn uptake, PFT nl, CT due she had dizziness kind of feeling some pressure in the head in certain position, seen dr Andrews, had MRI ans CT of the brain in 2019 , has been seeing a chiropractor Nidia Herrera MD [address] [facility] [facility] [address], [place], [address], [employer] [facility] [employer] 04/30/2023 12:16:38 08/07/2023 text/html 68 yo female com es in for follow up in management of hypothyroidism, orthostatic hypotension last seen in February at that time we continued unithroid 25 mcg daily along with florinef 0.1 mg twice daily (half if less needed). She has low energy level, up and mostly active during the day. She is sleeping well at night. She does struggle with some dizziness. Her blood pressure is in range on the florinef-once daily -whole tablet.She does test her BP regularly- usually around 118-122 / 60-70mmHg. labs from 08/03/23:ousmane 8.7 mg/dLPTH 70.1 pg/mLglucose 87 mg/dLCr normalLFT deobmm851/69/62/85TSH of 1.980 uIU/mlvit D 57.9 ng/mLFT4 of 1.28 ng/dL Maite Eli MD [address], [place], [address], [employer] [facility] [employer] 08/07/2023 12:01:36 11/29/2023 text/html She is here toda y for her routine follow up. Hyperlipidemia- on med and under control, labs .Meds- atorvastatin 10 mg qd- needs refill Rhinitis- meds helptakes singular and flonase, Osteopenia- OTC calcium + D,Med- Ibandronate 150 mg once a month, from gyne Orthostatic hypotension/Low BP- has been checking bp at home betterMeds- fludrocortisone 0.1 mg, Propanolol 10 mg TID PRN, was seeing endo dr eli Pulsavage nodule- Last CT chest was 05/2023 (6-12mo follow up) , PET 10/25, no abn uptake, PFT nl she had dizziness kind of feeling some pressure in the head in certain position, seen dr Andrews, had MRI ans CT of the brain in 2019 , has been seeing a chiropractor Nidia Herrera MD [address], [place], [address], [employer] [facility] [employer] 11/29/2023 10:55:02 04/09/2024 text/html [facility] Hyperlipidemia- on med and under control, labs 9.23Meds- Atorvastatin 10 mg qd Rhinitis- meds helptakes Singular and Flonase, Osteoporosis- OTC calcium + D, dexa 2022Med- Ibandronate 150 mg once a month, from gyne Orthostatic hypotension/Low BP- has been checking bp at home better, no symptomsMeds- Fludrocortisone 0.1 mg, was seeing endo dr eli, going to see new endo Hypothyroidism- on meds Pulm nodule- Last CT chest was 05/2023 (6-12mo follow up) , PET 10/25, no abn uptake, PFT nl she had dizziness kind of feeling some pressure in the head in certain position, seen dr Andrews, had MRI anD CT of the brain in 2019 , WAS seeing a chiropractor Nidia Herrera MD [address], [place], [address], [employer] 04/09/2024 12:02:43 08/27/2024 text/html [facility] NEEDS PHYSICAL EXAM FOR SCHOOL JOB A MONITOR Hyperlipidemia- on med and under control, labs dueMeds- Atorvastatin 10 mg qd Rhinitis- meds helptakes Singular and Flonase, Osteoporosis- OTC calcium + D, dexa 2022Med- Ibandronate 150 mg once a month, from gyne Orthostatic hypotension/Low BP- has been checking bp at home better, no symptomsMeds- Fludrocortisone 0.1 mg, was seeing endo dr eli, going to see new endo in 09/28 Hypothyroidism- needs labs Pulm nodule- Last CT chest was 05/2023 (6-12mo follow up) , PET 10/25, no abn uptake, PFT nl she had dizziness kind of feeling some pressure in the head in certain position, seen dr Andrews, had MRI and CT of the brain in 2019 , WAS seeing a chiropractor Nidia Herrera MD [address], [place], [address], [employer] 08/27/2024 16:23:06 OBGyn Episode No OBEpisode recorded.
--- OUTSIDE RECORDS SUMMARY | 2025-01-16 06:59 | XMS_ITS | Clinical Summary ---
Author Organization [facility] Address [facility] [place] [address] Care Team Providers Care Gambling Dealer Name Role Phone Tyshawn Bains MD Primary Care Provider [phone] Allergies No known active allergies Medications atorvastatin [...] a work-up with her ENT and her financial institution treasurer. Plan: - Orthostatic vitals for 2 weeks. If no OH, she should return to ENT for an evaluation. - Discuss with financial institution treasurer her symptoms in the upcoming visit. Potential medication side effects were discussed during the encounter. Nonintractable headache 04/16/2020 Systolic murmur 09/20/2018 Palpitations 08/23/2018 Allergic rhinitis 11/22/2017 Hyperlipidemia 03/20/2017 Osteopenia 03/20/2017 Immunizations Immunization Administration Dates Next Due Pfizer SARS-CoV-2 Monovalent Vaccination (12+ Yrs) PURPLE 09/07/2021,02/28/2021,01/31/2021 Medical History Medical History Date Comments High cholesterol Osteoporosis Allergic rhinitis Anxiety Dizziness Tinnitus Headache Family History Medical History Relation Name Comments Heart disease Brother Heart disease Father Hypertension Father Stroke Mother Diabetes Other uncle, nephew Cancer Sister Heart disease Sister Dementia Neg Hx Neuropathy Neg Hx Parkinsonism Neg Hx Tremor Neg Hx Relation Name Status Comments Brother Father Mother Other Sister Social History Tobacco Use Types Packs/Day [...] file Not on file Not on file Obstetrics History Last Filed Vital Signs Vital Sign Reading [...] 08/05/2024 2:27 PM CDT Plan of Treatment Health Maintenance Due Date Last Done Comments Breast Cancer Screening-Mammogram 1956 Colon Cancer Screening-Colonoscopy 1956 Fall Risk Assessment 1956 Hepatitis C Screening 1956 Osteoporosis Screening-Bone Density Scan 1956 DTaP/Tdap/Td Vaccine (1 - Tdap) 1967 Hepatitis B Screening 1974 Pneumococcal vaccine 65+ (1 of 1 - PCV) 2006 Zoster Vaccine (1 of 2) 2006 Well Visit 65+ 2021 Depression Screening 11/17/2021 11/17/2020, 11/17/19 21 Covid-19 Vaccine ( season) 2024 09/07/2021, 02/28/2021, 01/31/2021 Influenza Vaccine (#1) 2024 , 11/01/2019, 08/21/2017 Insurance [facility] [employer] HMO REF MEDICARE SOLUTIONS MEDICARE SOLUTIONS Care Teams Gambling Dealer Relationship Specialty Start Date End Date Tyshawn Bains MD PCP - General 11/17/20
[2025-01-16 07:55] LABS: Alanine Aminotransferase 19 U/L (6-35); Albumin Level 4.2 g/dL (3.5-5.1); Alkaline Phosphatase 54 U/L (38-126); Anion Gap 8 mmol/L (4-12); Aspartate Amino Transferase 25 U/L (14-36); Bilirubin,Total 0.5 mg/dL (0.2-1.3); Blood Urea Nitrogen 17 mg/dL (7-17); Calcium 8.8 mg/dL (8.4-10.2); Carbon Dioxide 28 mmol/L (22-30); Chloride 103 mmol/L (98-107); Cholesterol 170 mg/dL (0-200); Estimated Glomerular Filt Rate > 60; Glucose 86 mg/dL (65-110); HDL Direct 62 mg/dL; Potassium 3.3 mmol/L (3.4-5.0); Sodium 139 mmol/L (137-145); Triglycerides 65 mg/dL (<150)
[2025-01-16 08:05] LABS: LDL Cholesterol Direct 80 mg/dL
[2025-01-16 08:51] LABS: Free T3 2.89 pg/mL (2.45-5.93); Free T4 Free Thyroxine 1.36 ng/dL (0.78-2.19)
== END 2025-01-16 06:55 | disposition home or self-care (01) ==
PROVIDERS: PCP Internal Medicine; Visit Provider Internal Medicine
DX: E78.5 Hyperlipidemia, unspecified (principal); E03.9 Hypothyroidism, unspecified
CPT/HCPCS: 36415; 80053; 80061; 84439; 84443; 84481

== ENCOUNTER 2025-04-11 07:16 | Outpatient (CLI) | payer MEDICARE, SELFPAY ==
--- OUTSIDE RECORDS SUMMARY | 2025-04-11 07:21 | XMS_ITS | Clinical Summary ---
Author Organization [facility] Address [facility] [place] [address] Care Team Providers Care Hearing Therapy Teacher Name Role Phone Tyshawn Bains MD Primary Care Provider [phone] Allergies No known active allergies Medications atorvastatin [...] a work-up with her ENT and her scalper operator. Plan: - Orthostatic vitals for 2 weeks. If no OH, she should return to ENT for an evaluation. - Discuss with scalper operator her symptoms in the upcoming visit. Potential [...] 2:27 PM CDT Height 165.1 cm (5' 5) 08/05/2024 2:27 PM CDT Body Mass Index [...] season) 2024 09/07/2021, 02/28/2021, 01/31/2021 Influenza Vaccine (Season Ended) 2025 08/30/2020, 11/01/2019, 08/21/2017 Insurance [facility] [employer] HMO REF [id number] MEDICARE ADVANTAGE [place] [address] Care Teams Hearing Therapy Teacher Relationship Specialty Start Date End Date Tyshawn Bains MD PCP - General 11/17/20
--- OUTSIDE RECORDS SUMMARY | 2025-04-11 07:21 | XMS_ITS | Data Portability ---
Author Organization [place] - [facility] [employer], Main Office Address [address] [place] [address] Care Team Providers Care Waste Reduction Coordinator Name Role Phone NIDIA HERRERA Primary Care Provider [phone] Assessment No assessment recorded. Plan of Treatment Reminders Order Date Submit Date Provider Last Modified By Organization Details Last Modified Time Details Appointments Any 15 2024 10:00A M Nidia Herrera MD Not available Not available Not available Lab TSH, serum or plasma [address] (Lab), [address] [place] [address], [address], 01/28/2025 17:21:40 T4, free, serum [address] (Lab), [address] [place] [address], [address], 01/28/2025 17:21:40 T3, free, serum or plasma [address] (Lab), [address] [place] [address], [address], 01/28/2025 17:21:40 TSH, serum or plasma [address] (Lab), [address] [place] [address], [address], 03/11/2025 09:38:11 T4, free, serum [address] (Lab), [address] [place] [address], [address], 03/11/2025 09:38:11 T3, free, serum or plasma 2023 [facility] (Lab), [facility] [address], [place], [address], 01/29/2025 14:25:38 lipid panel, serum 2023 [email or web address] [facility] (Lab), [facility] [address], [place], [address], 03/11/2025 09:38:10 CMP, serum or plasma 2023 [facility] (Lab), [facility] [address], [place], [address], 01/29/2025 14:36:30 Referral None recorded. Procedures None recorded. Surgeries None recorded. Imaging CT, chest, w/o contrast - Please call patinet to schedule. 2023 [facility], [address], [address], [place], [address], 09/22/2024 18:59:15 Medication Orders atorvasta tin 10 mg tablet 2023 [place] [facility], [address], [address], [place], [place], [phone], 11/29/2023 10:50:59 fludrocor tisone 0.1 mg tablet 2023 024 [place] [facility], [address], [address], [place], [place], [id number], 11/29/2023 10:50:57 Unithroid 25 mcg tablet 2022 023 [facility] [id number] In [facility], [address] [facility], [place], [address], 08/07/2023 11:45:28 fludrocor tisone 0.1 mg tablet 2022 023 [facility] [id number] In [facility], [address] , [place], [address], 08/07/2023 11:45:29 Patient TargetsNo targets recorded. Patient Instructions Encounter Date Encounter Id Patient Instructions Last Modified By Organization Details Last Modified Time 04/09/2024 [id number] dementia rating scale-2* Not available 04/09/2024 12:02:38 alcohol misuse* Not available 04/09/2024 12:02:38 depression screening* Not available 04/09/2024 12:02:38 multi-dimensiona l health assessment questionnaire* Not available 04/09/2024 12:02:38 Personalized a lt Plan and Screening Recommendations Advance Directives - Do you have one? No You have indicated that you are capable of preparing your advance care directive I recommend consulting with an Data Base Administrator, family member, or friend to assist you. Not interested at this time Advance Directives - Do we have your advance directive on file in your health record? Primary Prevention/Interven tion (prevents or decreases the chance of common diseases from occurring) Smoking Risk: Non Smoker Alcohol Misuse Screening: Negative Weight: Appropriate Physical activity: Need more exercise/physical activity Nutrition: Average Refer to attached handout Heart-Healthy Diet: After Your Visit Refer to attached handout DASH Diet: After Your Visit Recommend consultation with a health policy manager Eat eart healthy diet Fall Risk (screened today): Low Vaccines Pneumococcal: Influenza: Your next one in the fall of this year Chronic Disease Risks Stroke: Intermediate Risk Active diagnosis, Continue current treatment plan Heart Attack: Intermediate Risk Active diagnosis, Continue current treatment plan Clogging of the Arteries: Intermediate Risk Active diagnosis, Continue current treatment plan Diabetes: Low Risk I have no recommendations Secondary Prevention/Interven tion (detects treatable diseases before they may cause symptoms, disability, or ) Breast Cancer Screening with mammogram: Recommended today Cervical/Uterine/Ov dede Cancer Screening: No screening necessary Osteoporosis Screening: Your next DEXA in: Ordered Recomme nded today Recommended today, but you have declined No screening necessary up to date Date Screening Last Performed: Colon Cancer Screening: Colonoscopy Recommended Date Screening Last Performed: Eye Disease Screening: Ordered Recommended today Recommended today, but you have declined No Eye exam necessary Your next exam in: goes yearly Dementia Risk: Low I have no recommendations Depression Screening: Negative Recommend additional evaluation and/or treatment as noted above Recommend follow appointment to further evaluate Recommend Behavioral Health referral Active diagnosis, Continue current treatment plan I have no recommendations [email or web address] Not available 04/09/2024 11:09:01 Reason for Referral None Reported. Results Created Date Observation Date Name Description Value Unit Range Abnormal Flag Note LastModifiedBy Organization Detail LastModifiedTime 05/01/20 24 04/30/2024 MAMMO , scree jo ann, digit al, bilat eral No observ ation record ed. Not Available 2023 16:14:12 09/22/20 24 09/19/2024 CT, chest , w/o contr ast No observ ation record ed. [email or web address] [facility] [address] [facility], [place], [address], 09/24/2024 15:49:43 Result Notes None recorded. Problems Name Problem SNOMED Code Status Onset Date Resolution Date Notes Provider Name and Address Organization Details Recorded Time History of chest pain 74011878622 238272 Completed 201804/27/2022 Not Available [facility] 3 02:52:16 Transient cerebral ischemia 713338498 Completed 201612/18/2018 Not Available [facility] 3 02:52:16 Osteopeni a 001929608 Active 2016 Not Available [facility] 3 02:52:16 Dizziness 606566036 Active 2021 Not Available [facility] 3 02:52:16 Dizziness 873549452 Completed 201712/18/2018 Not Available [facility] 3 02:52:16 Solitary nodule of lung 031187277 Active 2021 Not Available [facility] 3 02:52:16 Low blood pressure 48592881 Active 2021 Not Available [facility] 3 02:52:16 Hyperlipi demia 18614991 Active 2016 Not Available [facility] 3 02:52:16 Allergic rhinitis 21839421 Active 2018 Not Available [facility] 3 02:52:17 Hypotensi ve episode 68570120 Active 2021 Emilia fu RMA null, [facility] 4 14:49:38 Rhinitis 35993106 Completed 201705/24/2021 Not Available [facility] 3 02:52:17 Nodule of lung 590707464 Active 2020 Not Available [facility] 3 02:52:17 Hypothyro idism 11788350 Active 2022 JENNI Waggoner null, [facility] 4 14:49:36 Orthostat ic hypotensi on 99616737 Active 2022 Maite Eli MD [address], [address] , [facility] 3 12:40:26 Osteoporo sis 97171028 Active 2022 Nidia Herrera MD [address], [address] , [facility] 3 09:45:10 Postmenop ausal osteoporo sis 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 Active 2022 JENNI Pineda, [facility] 3 09:24:15 Notes:Medical History: Bilat eral tinnitus Rhinitis Eosinophils 140/uL IgE 56 IU/mL Chepe's thyroiditis Alpha-1 antitrypsin PiMM 131 mg% (+) SABRINA 1:160 homogeneous Bilateral pulmonary nodules EF 65% Hiatal hernia Hyperlipidemia Vit D deficiency Osteopenia Procedure History: Bilateral lasik surgery 2003 Problem Notes Documentation Provider Name and Address Organization Details Recorded Time Endocrinology Note : [facility] [address], [place] [facility] [address]AHIVJQ, Sally A (id #[id number], : 1955) Documents sent via [...] received this fax in error, please visit [email or web address] to notify the sender and confirm that the information will be destroyed. If you do not have internet access, please call to notify the sender and confirm that the information will be destroyed. Thank you for your attention and cooperation. [ID:[id number]][facility] [employer] [facility] [address] [place] [address] , Date: 08/07/2023RE: Bisi Senior, : 1955, PT ID #[id number] Herrera MD, I would like to thank you for referring Bisi Senior to our practice for consultation and evaluation of FU ON LABS , on 08/07/2023. I have enclosed a copy of the office evaluation for your records. Once again, thank you for allowing me to participate in the care of this patient. Sincerely, Electronically Signed by: MAITE ELI MD Encounter Reason/Date FU ON LABS 08/07/2023 - 10:30AM - [facility] [place]ry Problems:Reviewed Problems Hypothyroidism - Onset: 02/20/2023 Hyperlipidemia [...] the morning for 30 days., start started MIGRATION.[id number] fludrocortisone 0.1 mg tabletTAKE 1 TABLET BY MOUTH TWICE DAILY08/07/23 prescribed Maite Eli MD fluticasone propionate 50 mcg/actuation nasal spray,suspensionUSE 2 SPRAYS IN BOTH NOSTRILS ONCE DAILY04/09/23 filled surescripts ibandronate 150 mg tabletTAKE 1 TABLET BY MOUTH ONCE QCUFTYW47/23/23 filled surescripts montelukast 10 mg tabletTAKE 1 TABLET BY MOUTH ONCE DAILY05/28/23 filled surescripts propranoloL 10 mg tabletTAKE 1 TABLET BY MOUTH 3 TIMES DAILY GEZZKE66/17/23 filled MIGRATION.6289247340 Unithroid 25 mcg tabletTAKE 1 TABLET BY MOUTH EVERY DAY IN THE FBYYLEU24/03/23 prescribed Maite Eli MD Vitamin D3QD, start started MIGRATION.[id number] Family History:Family History not reviewed (last reviewed [...] 8.7 mg/dLPTH 70.1 pg/mLglucose 87 mg/dLCr normalLFT airqbf558/69/62/85TSH of 1.980 uIU/mlvit D 57.9 ng/mLFT4 of [...] (90) tablet Refills: 4 JANIE: Y Pharmacy: [facility] [id number] [facility] 2. Orthostatic hypotension-Continue on florinef 0.1 mg [...] his/her PCP can refer patient to another manufacturing engineer automotive in the area. All questions /concerns answered and refills necessary at visit today.I95.1: Orthostatic hypotension fludrocortisone 0.1 mg tablet - TAKE 1 TABLET BY MOUTH TWICE DAILY Qty: (180) tablet Refills: 4 Pharmacy: [place] [id number] [facility] Return to Office Patient will return to the office as needed Nidia Herrera MD [address], [address], [employer] 08/08/2023 13:25:30 Procedures Surgical History Date Name Laterality Status Provider Name and Address Organization Details Recorded Time Medicare Wellness CPT Code, Initial completed Alla Osborn RN [employer] 04/09/2024 11:04:06 Imaging Results None recorded. Procedure Notes None recorded. Medical Equipment None Reported. Allergies No known drug allergies Medications Name Sig Start Date Stop Date Status Note LastModified by Organization Details LastModified Time prednisone 10 mg tablet take 4w6zuoe, 8t1drqf, 1x2 days 12/18 completed Not Available Not Available Not Available atorvastati n 10 mg tablet TAKE 1 TABLET BY MOUTH DAILY 2024 active CHANDLER NOV ok to rf Not Available Not Available Not Available prednisone 20 mg tablet 12/25 completed Not [...] topical cream APPLY TOPICALLY TWICE A DAY 01/28 completed Not Available Not Available Not Available montelukast 10 mg tablet TAKE 1 [...] mcg tablet TAKE 1 TABLET BY MOUTH ONCE DAILY IN THE MORNING active Not Available Not [...] 2 SPRAYS IN BOTH NOSTRILS ONCE DAILY 2024 active CHANDLER NOV ok to rf Not Available Not Available Not Available fludrocorti sone 0.1 mg tablet TAKE 1 TABLET BY MOUTH TWICE DAILY 2024 active Not Available Not Available Not Avai lable diazepam 5 mg tablet TAKE 1 TABLET BY MOUTH EVERY 6 HOURS NEEDED FOR ANXIETY active Not Available Not Available No t Available amoxicillin 875 mg-marah wan clavulanate 125 mg tablet TAKE 1 TABLET [...] Updated DateTime 4 165.1 cm 22.8 kg/m2 56043.1 5 g 97.3 [degF] 70 /min 99 % 99 % 118 mm[Hg] 70 mm[Hg] JENNI Champion - S MD [employer] [facility] 4 10:41:43 Date Recorded Body height Body mass index (BMI) Body weight Body temperature Heart rate Oxygen saturation Oxygen saturation in Arterial blood by Pulse oximetry Systolic blood pressure Diastolic blood pressure Provider Name and Address Organization Details Last Updated DateTime 5 165.1 cm 22.1 kg/m2 60733.7 9 g 97.2 [degF] 71 /min 98 % 98 % 122 mm[Hg] 70 mm[Hg] Emilia garcia [facility] [employer] [facility] 5 15:44:35 Date Recorded Body height Body mass index (BMI) Body weight Heart rate Oxygen saturation Oxygen saturation in Arterial blood by Pulse oximetry Systolic blood pressure Diastolic blood pressure Provider Name and Address Organization Details Last Updated DateTime 4 165.1 cm 22.6 kg/m2 75921.5 6 g 74 /min 99 % 99 % 126 mm[Hg] 80 mm[Hg] Sarah Gonzalez [facility] [employer] [facility] 4 10:22:48 Date Recorded Body height Body mass index (BMI) Body weight Body temperature Respiratory rate Heart rate Systolic blood pressure Diastolic blood pressure Provider Name and Address Organization Details Last Updated DateTime 3 165.1 cm 22.3 kg/m2 70935.1 g 97.7 [degF] 14 /min 73 /min 107 mm[Hg] 69 mm[Hg] Xiomara Sue RN [facility] [employer] [facility] 3 11:25:50 Date Recorded Body height Body mass index (BMI) Body weight Body temperature Heart rate Oxygen saturation Oxygen saturation in Arterial blood by Pulse oximetry Systolic blood pressure Diastolic blood pressure Provider Name and Address Organization Details Last Updated DateTime 4 165.1 cm 22.8 kg/m2 02897.1 5 g 97.6 [degF] 88 /min 98 % 98 % 122 mm[Hg] 70 mm[Hg] Emilia garcia [facility] [employer] [facility] 4 15:37:55 Social History Question Answer Notes LastModified by Organizat ion Details LastModified Time Tobacco Smoking Status Former Smoker quit 20 years ago Not Available [employer] 01/03/2023 02:33:00 Do You Have An Advance Directive? No Information not available 04/09/2024 Are You Blind Or Do You Have Difficulty Seeing? No MIGRATION.71152 05688 Information not available 01/03/2023 What Is Your Level Of Caffeine Consumption? Occasional MIGRATION.15288 50089 Information not available 01/03/2023 How Much Tobacco Do You Chew? None MIGRATION.20832 97718 Information not available 01/03/2023 In The 14 Days Before Symptom Onset, Have You Had Close Contact With A Laboratory-confi rmed COVID-19 While That Case Was Ill? No MIGRATION.37406 39057 Information not available 01/03/2023 In The 14 Days Before Symptom Onset, Have You Had Close Contact With A Person Who Is Under Investigation For COVID-19 While That Person Was Ill? No MIGRATION.50659 34608 Information not available 01/03/2023 Are You Deaf Or Do You Have Serious Difficulty Hearing? No MIGRATION.89681 07628 Information not available 01/03/2023 What Type Of Diet Are You Following? REGULAR MIGRATION.36530 51791 Information not available 01/03/2023 Which Illicit Or Recreational Drugs Have You Used? None MIGRATION.67703 76929 Information not available 01/03/2023 Have There Been Any Changes To Your Family Or Social Situation? No [email or web address] Information not available 04/09/2024 What Is The Fluoride Status Of Your Home? Unknown [email or web address] Information not available 04/09/2024 Where Do You Live? [facility] [email or web address] Information not available 04/09/2024 Are You Able To Care For Yourself? Yes [email or web address] Information not available 04/09/2024 Are You Blind Or Do Yo Have Difficulty Seeing? No [email or web address] Information not available 04/09/2024 Are You Deaf Or Do You Have Serious Difficulty Hearing? No [email or web address] Information not available 04/09/2024 Live Alone Of With Others? With Others [email or web address] Information not available 04/09/2024 Do You Have A Medical Power Of Data Base Administrator? No [email or web address] Information not available 04/09/2024 What Was The Date Of Your Most Recent Tobacco Screening? 04/09/2024 [email or web address] Information not available 04/09/2024 Do You Have Any Pets? No [email or web address] Information not available 04/09/2024 What Is Your Relationship Status? MIGRATION.50612 48500 Information not available 01/03/2023 Do You Use Your Seat Belt Or Car Seat Routinely? Yes [email or web address] Information not available 04/09/2024 Do You Have Smoke And Carbon Monoxide Detectors In Your Home? Yes [email or web address] Information not available 04/09/2024 At What Age Did You Start Smoking Tobacco? 19 MIGRATION.39255 55097 Information not available 01/03/2023 How Much Tobacco Do You Smoke? 0.5 PPD MIGRATION.46038 25992 Information not available 01/03/2023 Have You Recently Traveled Abroad? No MIGRATION.69820 76666 Information not available 01/03/2023 Do You Have Difficulty Walking Or Climbing Stairs? No MIGRATION.07840 84426 Information not available 01/03/2023 Sex: Female Functional Status Question Answer Note LastModified by Organizat ion Details LastModified Time Do you use any illicit or recreational drugs? No MIGRATION.5323238 026 Information not available 01/03/2023 What is your level of alcohol consumption? None MIGRATION.2599292 026 Information not available 01/03/2023 Do you have transportation difficulties? No MIGRATION.3651962 026 Information not available 01/03/2023 Are you able to walk? YESWOREST MIGRATION.2711643 026 Information not available 01/03/2023 Do you have difficulty doing errands alone? No MIGRATION.8190188 026 Information not available 01/03/2023 Are you able to care for yourself? Yes MIGRATION.4220397 026 Information not available 01/03/2023 Do you have difficulty dressing or bathing? No MIGRATION.9960311 026 Information not available 01/03/2023 What is your exercise level? Occasional MIGRATION.1289031 026 Information not available 01/03/2023 Mental Status Question Answer Note LastModified by Organizat ion Details LastModified Time Do you have difficulty concentrating, remembering or making decisions? No MIGRATION.079736232 6 Information not available 01/03/2023 Family History Relationship Description Onset Age of this Age Resolved Age Notes LastModified by Organization Details LastModified Time Father Heart disease MIGRATION.955 [id number] Not available 01/03/2023 02:43:16 Father Essential hypertension MIGRATION.359 2497234 Not available 01/03/2023 02:43:16 Brother Heart disease MIGRATION.931 2419384 Not available 01/03/2023 02:43:16 Sister Heart disease MIGRATION.761 7416892 Not available 01/03/2023 02:43:16 Sister Neoplasm of bone marrow MIGRATION.837 7153263 Not available 01/03/2023 02:43:16 Maternal Uncle Diabetes mellitus MIGRATION.170 0130505 Not available 01/03/2023 02:43:16 Medical History Condition Response OSTEOPOROSIS Y HEADACHES/MIGRAINES Y DIZZINESS Y HIGH CHOLESTEROL / HYPERLIPIDEMIA Y Gynecological HistoryNo gynecological history recorded. Obstetrics History GPAL:G 0 P 0 0 0 0 Immunizations Vaccine Type Date Status Note Provider Nam e and Address Organization Details Recorded Time COVID-19, mRNA, LNP-S, PF, 30 mcg/0.3 mL dose 1 completed Not Available [facility] 01/03/2023 03:05:59 COVID-19, mRNA, LNP-S, PF, 30 mcg/0.3 mL dose 1 completed Not Available [facility] 01/03/2023 03:05:59 COVID-19, mRNA, LNP-S, PF, 30 mcg/0.3 mL dose 1 completed Not Available [facility] 01/03/2023 03:05:59 Influenza, split virus, quadrivalent, preservative 0 completed Not Available [facility] 01/03/2023 03:06:00 Influenza, split virus, quadrivalent, preservative 9 completed Not Available [facility] 01/03/2023 03:06:00 Influenza, split virus, quadrivalent, PF 7 completed Not Available [facility] hospital 01/03/2023 03:06:00 Past Encounters Encounter ID Performer Location Encounter Start Date Encounter Closed Date Diagnosis/Indication Diagnosis SNOMED-CT Code Diagnosis ICD10 Code Diagnosis Note [id number] Nidia Herrera MD [facility] Internal [facility] [address] [facility] [address] 01/14/2021 00:00:00 01/14/2021 12:39:50 [id number] MD RODY Mchugh IGRATION_ DEFAULT_1 _1 , 01/20/2021 00:00:00 01/20/2021 12:08:36 [id number] MD RODY Mchugh IGRATION_ DEFAULT_1 _1 , 04/28/2021 00:00:00 04/28/2021 13:40:34 [id number] Jose Teran MD [facility] [address] [address] 05/30/2021 00:00:00 05/30/2021 10:34:34 [id number] Nidia Herrera MD [facility] [address] [address] 06/17/2021 00:00:00 06/17/2021 13:10:02 [id number] Maite Eli MD _MOHINI IGRATION_ DEFAULT_1 _1 , 07/28/2021 00:00:00 07/28/2021 13:48:02 [id number] MD SONAM LomeliS[facility] [address] [address] 10/31/2021 00:00:00 10/31/2021 12:02:25 [id number] Maite Eli MD _MOHINI IGRATION_ DEFAULT_1 _1 , 11/24/2021 00:00:00 11/24/2021 11:09:04 [id number] Nidia Herrera MD [facility] [address] [address] 04/27/2022 00:00:00 04/27/2022 14:41:18 [id number] MD SONAM [facility] [address] [address] 06/06/2022 00:00:00 06/06/2022 15:12:18 [id number] MD SONAM M[facility]ugh[facility] [place] [address] [facility] [address] [place] [address] 08/25/2022 00:00:00 08/25/2022 21:01:21 [id number] MD SONAM LomeliS[facility] [address] [address] 11/07/2022 00:00:00 11/07/2022 11:24:23 [id number] Maite Eli MD [facility] [place] [facility] [address] [place] [address] 02/20/2023 12:15:46 02/20/2023 12:44:41 Hypothyroidism 92849184 E03.9 TSH borderline with normal free hormones- will repeat in March to see if we can make a dose adjustment in her unithroid- she is on 25 mcg currently and tolerating well- sleeping better but mild fatigue. She might be able to bump her dose to two tablets on Sun/Sun/ ida and continue on the one tablet all [...] on. Screening for malignant neoplasm of colon 834609824 Z12.11 refer to gastroente rology as patient due for screening scan. Orthostati c hypotension 88742009 I95.1 Continue on florinef 0.1 mg up [...] she chooses to go outside of the [facility] to obtain labwork she was [...] in her case. She voiced understand ing. [id number] Nidia Herrera MD [facility] [address] [place] [address] 04/30/2023 11:35:43 04/30/2023 12:18:33 Hyperlipidemia 42582373 E78.5 on meds Osteopenia 320355599 M85 .80 on vit D Low blood pressure 20623 003 I95.9 Francis fox it, seeing endo Allergic rhinitis 337057 04 J30.9 meds help Solitary n odule of lung 354123686 R91.1 needs f/u CT chest Dizziness 558745175 R42 seeing chiropract or Adult heal th examination 967951128 Z00.00 Colonoscop y- >10 yrs ago, endo ordered it, getting it in 2 weeksHarshlo- gonsalod - 2018 - NEGMammogr am- 3Dex a- 03/2023FLU - 2COVID- 01/31-, 02/28/2021 History of chest pain 16 41793860 7558626 Z87.898 tress test, Holter, sleep study neg in 2018 Hypothyroidism 11443114 E03.9 on meds from endo [id number] Maite Eli MD [facility] [place] [address] [place] [address] 08/07/2023 11:16:46 08/07/2023 11:47:17 Hypothyroidism 60683515 E03.9 TSH and FT4 in ideal range- [...] and reduce inflammati on. Orthostati c hypotension 16978872 I95.1 Continue on florinef 0.1 mg up [...] answered and refills necessary at visit today. [id number] Nidia Herrera MD [facility] [address] [facility] [place] [address] 11/29/2023 10:21:38 11/29/2023 11:04:29 Hyperlipidemia 85570884 E78.5 on meds Osteopenia 098547658 M85 .80 on vit D History of chest pain 16 44591869 9528959 Z87.898 stress test, Holter, sleep study neg in 2018 Low blood pressure 12063 003 I95.9 Florinef maintainin g it, Allergic rhinitis 893727 04 J30.9 meds help Solitary n odule of lung 527625022 R91.1 CT chest 05/27, 6 mm nodule Dizziness 690044300 R42 better Adult heal th examination 212248141 Z00.00 Colonoscop y- >10 yrs ago, aware that it is due, will let me know when wantsColo- guard - 2018 - NEGMammogr am- ex a- 03/2023FLU - 3COV ID- , 02/28/2021 Hypothyroidism 00674126 E03.9 on meds Orthostati c hypotension 78082821 I95.1 stable with meds [id number] Nidia Herrera MD [facility] Internal Med [facility] [address] [facility] [place] [address] 04/09/2024 10:16:22 04/09/2024 11:04:35 Hyperlipidemia 37057270 E78.5 on meds History of chest pain 16 56765548 5511342 Z87.898 stress test, Holter, sleep study neg in 2018 Allergic rhinitis 007252 04 J30.9 meds help Solitary n odule of lung 777980870 R91.1 CT chest 05/27, 6 mm nodule, order next time Dizziness 020090374 R42 advised to see neurology at [facility] Adult heal th examination 741835931 Z00.00 Colonoscop y- >10 yrs ago, aware that it is due, will let me know when wantsColo- guard - 2017 - NEGMammogr am- 03/2023- ScheduledP neumovax- wants to waitDexa- 03/2023FLU - 3COV ID- , 02/28/2021 Hypothyroidism 89632541 E03.9 on meds , TO SEE NEW ENDO Orthostati c hypotension 18288757 I95.1 stable with meds Screening for disorder 546395920 Z13.9 [id number] Nidia Herrera MD [facility] Internal Med [facility] [address] [facility] [place] [address] 08/27/2024 15:15:41 08/27/2024 16:37:56 Hyperlipidemia 13989550 E78.5 on meds History of chest pain 16 66623784 8752785 Z87.898 stress test, Holter, sleep study neg in 2018 Allergic rhinitis 721620 04 J30.9 meds help Solitary n odule of lung 976264400 R91.1 CT chest 05/27, 6 mm nodule, Dizziness 267701608 R42 to see neurology at [facility], STILL HAS MILD SYMPTOMS Adult heal th examination 107746719 Z00.00 Colonoscop y- >10 yrs ago, aware that it is due, will let me know when wantsColo- guard - 2017 - NEGMammogr am- 04/30/24Pn eumovax- wants to waitDexa- 03/2023FLU - 08/26/2024 ([facility] )COVID- , 02/28/2021 [employer], FORMS SIGNED Hypothyroidism 15615429 E03.9 on meds , Orthostati c hypotension 81232705 I95.1 stable with meds [id number] Nidia Herrera MD [facility] Internal Med [address] 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 Dizziness 710061849 R42 to see neurology at [facility], STILL HAS MILD SYMPTOMS Adult heal th examination 472595285 Z00.00 Colonoscop y- >10 yrs ago, aware that it is due, will let me know when wantsColo- guard - 2017 - NEGMammogr am- 04/30/24Pn eumovax- DOES NOT WANTDexa- 03/2023FLU - 08/26/2024 ([facility] )COVID- 01/31-, 02/28/2021 PHYSICAL DONE [employer], FORMS SIGNED Hypothyroidism 82633003 E03.9 on meds , Orthostati c hypotension 26806467 I95.1 stable with meds Health Concerns Section Related Observation LastModified by Organization Detai ls LastModified Time None Recorded Concern Status LastModified by Organization Details LastModified Time None Recorded Advance Directives Directive N: Payers Encounter Date Sequence Insurance Name Policy Number Policy Hewitt Covered Member ID Hewitt Member ID Guarantor Name 08/07/2023 1 [facility] (MEDICARE REPLACEMENT/A DVANTAGE - HMO) [id number] Bisi Senior [id number] Bisi A Frisse 11/29/2023 1 [facility] (MEDICARE REPLACEMENT/A DVANTAGE - HMO) [id number] Bisi A Frisse [id number] Bisi A Frisse 04/09/2024 1 [facility] (MEDICARE REPLACEMENT/A DVANTAGE - HMO) [id number] Bisi A Frisse [id number] Bisi A Frisse 08/27/2024 1 [facility] (MEDICARE REPLACEMENT/A DVANTAGE - HMO) [id number] Bisi A Frisse [id number] Bisi A Frisse 01/28/2025 1 [facility] (MEDICARE REPLACEMENT/A DVANTAGE - HMO) [id number] Bisi A Frisse [id number] Bisi A Frisse Notes Date Note Type Note Provider Name and Address Organization Details Recorded Time 08/07/2023 text/html 68 yo female com es [...] 8.7 mg/dLPTH 70.1 pg/mLglucose 87 mg/dLCr normalLFT /69/62/85TSH of 1.980 uIU/mlvit D 57.9 ng/mLFT4 of 1.28 ng/dL Maite Eli MD [address] [facility] [facility] [address], [place], [address], [place] [facility] [employer] [facility] [employer] 08/07/2023 12:01:36 11/29/2023 text/html She is here toda y for her routine follow up. Hyperlipidemia- on med and under control, labs 9.23Meds- atorvastatin 10 mg qd- needs refill Rhinitis- meds helptakes singular and flonase, Osteopenia- OTC calcium + D,Med- Ibandronate 150 mg once a month, from gyne Orthostatic hypotension/Low BP- has been checking bp at home betterMeds- fludrocortisone 0.1 mg, Propanolol 10 mg TID PRN, was seeing endo dr eli Pulm nodule- Last CT chest was 05/2023 (6-12mo follow up) , PET 10/25, no abn uptake, PFT nl she had dizziness kind of feeling some pressure in the head in certain position, seen dr Andrews, had MRI ans CT of the brain in 2019 , has been seeing a chiropractor Nidia Herrera MD [address] [facility], [place], [address], [employer] [facility] [employer] 11/29/2023 10:55:02 04/09/2024 text/html She is here to zaid for her routine follow up. Hyperlipidemia- on med and under control, labs 9.23Meds- Atorvastatin 10 mg qd Rhinitis- meds helptakes Singular and Flonase, Osteoporosis- OTC calcium + D, dexa 2022Med- Ibandronate 150 mg once a month, from gyn Orthostatic hypotension/Low BP- has been checking bp [...] seeing a chiropractor Nidia Herrera MD [address] [facility], [place], [address], [employer] 04/09/2024 12:02:43 08/27/2024 text/html She is here mo mar for her routine follow up. NEEDS PHYSICAL [...] seeing a chiropractor Nidia Herrera MD [address], [address], [place], [address], [employer] 08/27/2024 16:23:06 01/28/2025 text/html She is here toda y for her routine follow up.PT IS NOT FASTING ( [facility] ) Hyperlipidemia- on med and under control, labs good01/27Meds- Atorvastatin 10 mg qd Rhinitis- meds helptakes Singular and Flonase, Osteoporosis- OTC calcium + D, dexa 2022Med- Ibandronate 150 mg once a month, from gyne Orthostatic hypotension/Low BP- has been checking bp at home better, no symptomsMeds- Fludrocortisone 0.1 mg, was seeing endo dr eli, seeing another endo Hypothyroidism- labs good Pulm nodule- Last CT chest was 09/19/24 (6-12mo follow up) , PET 10/25, no abn uptake, PFT nl she had dizziness kind of feeling some pressure in the head in certain position, seen dr Andrews, had MRI and CT of the brain in 2019 , WAS seeing a chiropractor Nidia Herrera MD [address], [place], [address], [employer] 01/28/2025 16:27:05 OBGyn Episode No OBEpisode recorded.
--- OUTSIDE RECORDS SUMMARY | 2025-04-11 07:21 | XMS_ITS | Referral Summary ---
Author Organization [facility] Address [address] [place] [address] Care Team Providers Care Jewel Bearing Grinder Name Role Phone Tyshawn Bains MD Primary Care Provider [phone] Allergies No known active allergies Medications atorvastatin [...] a work-up with her ENT and her reel tender. Plan: - Orthostatic vitals for 2 weeks. If no OH, she should return to ENT for an evaluation. - Discuss with reel tender her symptoms in the upcoming visit. Potential [...] Plan of Treatment Not on file [facility] MEDIC[facility] ADVANTAGE Care Teams Jewel Bearing Grinder Relationship Specialty Start Date End Date Tyshawn Bains MD PCP - General 11/17/20
--- OUTSIDE RECORDS SUMMARY | 2025-04-11 07:21 | XMS_ITS | Clinical Summary ---
Author Organization [facility] Address [address] [place] [address] Phone Care Team Providers Care Head Librarian Name Role Phone Tyshawn Bains MD Primary Care Provider [phone] Lara Solitario APRN, RADIAGRAPH OPERATOR Unavailable [phone] Allergies No known active allergies Medications atorvastatin [...] 11:36 AM CDT Height 165.1 cm (5' 5) 07/12/2022 11:36 AM CDT Body Mass Index 22.23 07/12/2022 11:36 AM CDT Plan of Treatment Health Maintenance Due Date Last Done Comments Hepatitis C Virus (HCV) Screening 1955 TdaP Immunization 1955 Colonoscopy 2001 Colorectal Cancer Screening 2001 Cologuard 2006 Immunochemical Fecal Occult Blood 2006 Pneumococcal Immunization (50+ years) (1 of 1 - PCV) 2006 Zoster Immunization (1 of 2) 2006 SARS-COV-2 Immunization ( - season) 2024 08/10/2022, 09/07/2021, 02/28/2021, Additional history exists Influenza Immunization (Season Ended) 2025 08/10/2022, 09/07/2021, 08/30/2020, Additional history exists Respiratory Syncytial Virus (RSV) Immunization (Adult) (1 - 1-dose 75+ series) 2031 Hepatitis B Immunization Aged Out No longer eligible based on patient's age to complete this topic Human Papillomavirus (HPV) Immunization Aged Out No longer eligible based on patient's age to complete this topic Meningococcal Immunization (ACWY) Aged Out No longer eligible based on patient's age to complete this topic Rotavirus Immunization Aged Out No lo nger eligible based on patient's age to complete this topic Insurance MEDICARE C [facility] on file Care Teams Head Librarian Relationship Specialty Start Date End Date Tyshawn Bains MD PCP - General Internal Medicine 05/03/22 Lara Solitario APRN, RADIAGRAPH OPERATOR [address] [place] [address] Nurse Practitioner Advanced Practice Nurse 07/12/22
--- OUTSIDE RECORDS SUMMARY | 2025-04-11 07:22 | XMS_ITS | CONTINUITY OF CARE DOCUMENT ---
Author Name conner, conner Address Unknown Organization [facility] Address [address] [place] [address] Phone [phone] Care Team Providers Care C Wpf Developer Name Role Phone Michele Velarde MD Unavailable Tyshanw Bains MD Unavailable Tyshawn Bains MD Unavailable PROBLEMS Condition Status Date Provider Notes Family [...] In-person encounter Office Visit Cornel Stephens MD [facility] - In-person encounter Office Visit Michele Velarde MD [facility] HeadacheTingling sensation in face - In-person encounter Office Visit Michele Velarde MD [facility] Dizziness - In-person encounter Office Visit Michele Velarde MD [facility] - In-person encounter Office Visit Michele Velarde MD [facility] - In-person encounter Office Visit Michele Velarde MD [facility] HyperlipidemiaSystolic murmur - In-person encounter Office Visit Michele Velarde MD [facility] Family History of CVA or Stroke:Family [...] l blood pressure, cuff size regular Cy ntamndaa Gallegos height E&M 66 [in_i] Poonam Campbel l temperature site temporal Anette [facility] temperature E&M 96.9 [degF] Anette Jada [facility] Body Mass Index (Ratio) 21.63 kg/m2 [facility] pulse rate, standing 100 /min Poonam Gallegos blood pressure, diastolic, standing 83 mm [Hg] Poonam Gallegos blood pressure, systolic, standing 96 mm[ Hg] [facility] blood pressure, diastolic 75 mm[Hg] Cy jose luisalstacie Angola blood pressure, systolic 120 mm[Hg] Ivy moore Gallegos respiratory rate E&M 16 /min Poonam Gallegos pulse rate 96 /min Poonam Martin oxygen saturation, oximetry 100 % Poonam Gallegos weight E&M 134 [lb_av] Poonam Martin blood pressure, cuff size regular jose luisalstacie Gallegos height E&M 66 [in_i] Poonam Martin temperature site temporal Anette [facility] temperature E&M 96.9 [degF] [facility] Body Mass Index (Ratio) 22.05 kg/m2 Robin ron Matt blood pressure, diastolic, standing 88 mm [Hg] [facility], systolic, standing 116 mm [Hg] [facility] blood pressure, diastolic 78 mm[Hg] Adina Villalpando blood pressure, systolic 126 mm[Hg] Diane Villalpando oxygen saturation, oximetry 98 % Gaurav Villalpando respiratory rate E&M 18 /min Kathleen Villalpando pulse rate 85 /min Gaurav park weight E&M 136.6 [lb_av] Gaurav simms height E&M 66 [in_i] Gaurav park Body Mass Index (Ratio) 22.76 kg/m2 Robin en Matt blood pressure, cuff size regular Kr isty Darlington blood pressure, diastolic 70 mm[Hg] Kr isty [place] blood pressure, systolic 114 mm[Hg] Kri sty [place] pulse rate 73 /min Adelita Dar[place] oxygen saturation, oximetry 100 % Adelita [place] respiratory rate E&M 18 /min Adelita [place] weight E&M 141 [lb_av] Adelita Daya height E&M 66 [in_i] Adelita [place] Body Mass Index (Ratio) 26.79 kg/m2 Delfin wheeler Dorina blood pressure, diastolic 86 mm[Hg] Adina rc Dorina blood pressure, systolic 147 mm[Hg] Diane shaver [...] [facility] 3.5-5.2 0 sodium, serum 141 mmol/L [facility] [phone]/05/3 0 urea nitrogen/creatinine ratio, serum 17 [facility] 12-28 0 eGFR if 87 mL/min/{1 .73_m2} [employer] >59 0 eGFR if not 75 mL/min/{1 .73_m2} [employer] >59 0 creatinine, serum 0.83 mg/dL [facility] 0.57-1.00 0 urea nitrogen, blood 14 mg/dL [facility] 8-27 0 blood glucose, random 85 mg/dL [facility] 65-99 9 lipoprotein, beta, serum, point, quantitative, calculated 99 mg/dL [employer] 0-99 9 very low density lipoproteins 20 mg/dL [facility] 5-40 9 HDL cholesterol, serum 60 mg/dL [facility] >39 9 triglyceride, serum, random 101 mg/dL [facility] 0-149 9 cholesterol, serum 179 mg/dL [facility] [phone]/02/2 9 basophil count, absolute 0.0 x10E3/uL [employer] [...] Estab. 9 platelet count 268 X10E3/UL [employer] 197-765 2148/02/2 9 red blood cell distribution width 12.8 [...] High 9 sodium, serum 144 mmol/L [employer] [phone]/02/2 9 urea nitrogen/creatinine ratio, serum 17 [facility] 12-28 9 eGFR if 82 mL/min/{1 .73_m2} [employer] >59 9 eGFR if not 71 mL/min/{1 .73_m2} [employer] >59 9 creatinine, serum 0.87 mg/dL [employer] 0.57-1.00 9 urea nitrogen, blood 15 mg/dL [facility] 8-27 9 blood glucose, random 85 mg/dL [employer] 65-99 HISTORY OF MEDICATION USE Medication Status Instructions Dates Provider Indications Com [facility] MEDICAL COMPRESSION STOCKINGS active bilateral knee high [...] Payer name Policy type / Coverage type [employer] party ID [facility] [id number] ADVANCE DIRECTIVES Name Date DISCUSSED - NO DECISION MADE TREATMENT PLAN Date Name Performer Cardiology Follow up Ted Parikh Cardiology Follow up Ted Parikh Cardiology: H er updated medication list for this problem includes: Aspirin Adult Low Dose 81 Mg Oral Tablet Delayed Release (Aspirin) ..... One tab by mouth daily [facility] Cardiology: H er updated medication list for this problem includes: Atorvastatin Calcium 10 Mg Oral Tablet (Atorvastatin calcium) ..... Take one pill a day [facility] Cardiology [facility] Cardiology: H er updated medication list for this problem includes: Aspirin Adult Low Dose 81 Mg Oral Tablet Delayed Release (Aspirin) ..... One tab by mouth daily [facility] Cardiology: H er updated medication list for this problem includes: Atorvastatin Calcium 10 Mg Oral Tablet (Atorvastatin calcium) ..... Take one pill a day [facility] Cardiology [facility] Cardiology: H er updated medication list for this problem includes: Aspirin Adult Low Dose 81 Mg Oral Tablet Delayed Release (Aspirin) ..... One tab by mouth daily [facility] Cardiology [facility] Electrophysiology: H er updated medication list for this problem includes: Atorvastatin Calcium 10 Mg Oral Tablet (Atorvastatin calcium) ..... Take one pill a day [facility] Electrophysiology: O rders: C BC (INCLUDES DIFF/PLT) (6399) C OMPREHENSIVE METABOLIC PANEL, W/EGFR (24890) L IPID PANEL (7600) C ortisol (888845) [facility] Electrophysiology:Ho lter Interpretation 12/02/2019: R hythm: Sinus Rhythm/Sinus Tachycardia T he average heart rate was 71 BPM. T he minimum heart rate was 53 BPM. T he maximum heart rate was 125 BPM. N o ventricular ectopics were noted. N o atrial ectopics were noted. [facility] Electrophysiology:la bs today m ay be due to orthostatic hypotension Her updated medication list for this problem includes: Aspirin Adult Low Dose 81 Mg Oral Tablet Delayed Release (Aspirin) ..... One tab by mouth daily [facility] Electrophysiology: H er updated medication list for this problem includes: Atorvastatin Calcium 10 Mg Oral Tablet (Atorvastatin calcium) ..... Take one pill a day [facility] Electrophysiology [facility] Electrophysiology fo llow up: O rders: C omplete Echo (CPT-31997) Chase Dorina Electrophysiology fo llow up: H ome sleep study 08/30/18 was normal, with AHI 4.6. Chase Dorina Electrophysiology fo llow up: 2 -week Telesentry 09/2018: R hythm: Sinus Rhythm. T he average heart rate was 87bpm with a maximum heart rate 134bpm. T he minimum heart rate was 65bpm. & #13;Orders: E KG (CPT-69157) 9 9214 MOD Complex (CPT-17505) S chedule Followup (*) M obile Cardiac Tele (CPT-47166) Her updated medication list for this problem [...] BP: 133/88 Orders: 9 9214 MOD Complex (CPT-92861) S chedule Followup (*) M obile Cardiac Tele (CPT-55708) Her updated medication list for this problem includes: Aspirin Adult Low Dose 81 Mg Oral Tablet Delayed Release (Aspirin) ..... One tab by mouth daily [facility]ital Follow up :Orders: S leep Study Home (CPT-58671) [facility] Follow up :Orders: M obile Cardiac Tele (CPT-87370) E KG (CPT-45854) 9 9215 HIGH Complex (CPT-33824) S chedule Followup (*) Her updated medication list for this problem includes: Aspirin Adult Low Dose 81 Mg Oral Tablet Delayed Release (Aspirin) ..... One tab by mouth daily [facility] Follow up :By my BP measurement: S itting BP was 130/80, HR 89 bpm. S tanding BP was 128/83, HR 82 bpm. Orders: M obile Cardiac Tele (CPT-73743) E KG (CPT-41852) A mbulatory BP (CPT-73569) 9 9215 HIGH Complex (CPT-97413) S chedule Followup (*) Her updated medication [...]
[2025-04-11 08:01] LABS: Phosphorus 3.7 mg/dL (2.5-4.5)
[2025-04-11 08:11] LABS: Parathyroid Intact 46.9 pg/mL (14.5-75.2)
[2025-04-11 08:16] LABS: Vitamin D 25 Hydroxy 50.1 ng/mL
[2025-04-11 09:56] LABS: Creatinine Urine 38.6 mg/dL
[2025-04-11 10:11] LABS: Creatinine 24 Hour Urine 0.5 gm/24 (0.8-1.8); Total Volume 24 Hour Urine 1500 ml
[2025-04-13 11:59] LABS: Ionized Calcium 5.1 mg/dL (4.7-5.5)
== END 2025-04-11 07:17 | disposition home or self-care (01) ==
LOC: ANHLAB 07:19
PROVIDERS: PCP Internal Medicine; Visit Provider Internal Medicine Endocrinology, Diabetes & Metabolism
DX: M81.0 Age-related osteoporosis without current pathological fracture (principal); R79.89 Other specified abnormal findings of blood chemistry; E03.9 Hypothyroidism, unspecified; E55.9 Vitamin D deficiency, unspecified
CPT/HCPCS: 36415; 81050; 82306; 82330; 82340; 82570; 83970; 84100

== ENCOUNTER 2025-04-28 14:37 | Outpatient (CLI) | payer MEDICARE, SELFPAY ==
--- NOTE | ~2025-04-28 | DEXA_ITS ---
Bone Density Report Name: ESTELLE SENIOR Age: 69 Sex: Female Ethnicity: White Date of : 1955 Indication: postmenopausal osteoporosis; monitoring treatment; height loss; Referring Provider: SIGIFREDO PATTERSON Study: Bone densitometry was performed. Exam Date: April 28, 2025 Accession number: [id number] Bone Density: Region BMD T-score Z-score Classification AP Spine(L1-L4) 0.682 -3.3 -1.3 Osteoporosis Femoral Neck (Left) 0.568 -2.5 -0.8 Osteoporosis Total Hip (Left) 0.628 -2.6 -1.1 Osteoporosis Femoral Neck (Right) 0.539 -2.8 -1.1 Osteoporosis Total Hip (Right) 0.592 -2.9 -1.4 Osteoporosis Total Hip Mean 0.610 -2.8 -1.3 Osteoporosis World Health Organization criteria for BMD impression classify patients as: Normal (T-score at or above -1.0), Osteopenia (T-score between -1.0 and -2.5), or Osteoporosis (T-score at or below -2.5). 10-year Fracture Risk: FRAX not reported because: Some T-score for Spine Total or Hip Total or Femoral Neck at or below -2.5 Treated for osteoporosis Previous Exams: Region Exam Age BMD T-score BMD Change BMD Change Date g/cm2 vs Baseline vs Previous AP Spine (L1-L4) 04/28/2025 69 0.682 -3.3 -0.082 (-10.8% -0.001 (-0.2%) 04/04/2023 67 0.684 -3.3 -0.081 (-10.6% 0.017 (2.5%) 12/28/2020 65 0.667 -3.5 -0.098 (-12.8% -0.106 (-13.8% 09/21/2018 63 0.773 -2.5 0.009 (1.1%)# -0.002 (-0.3%) 07/04/2016 61 0.776 -2.5 0.011 (1.4%)# 0.011 (1.4%)# 03/21/2014 58 0.765 -2.6 Total Hip(Left) 04/28/2025 69 0.628 -2.6 -0.104 (-14.2% -0.026 (-4.0%) 04/04/2023 67 0.654 -2.4 -0.078 (-10.6% -0.005 (-0.7%) 12/28/2020 65 0.658 -2.3 -0.073 (-10.0% -0.069 (-9.5%) 09/21/2018 63 0.727 -1.8 -0.004 (-0.6%) -0.042 (-5.4%) 07/04/2016 61 0.769 -1.4 0.038 (5.1%)# 0.038 (5.1%)# 03/21/2014 58 0.732 -1.7 Total Hip(Right) 04/28/2025 69 0.592 -2.9 -0.158 (-21.1% -0.026 (-4.3%) 04/04/2023 67 0.618 -2.7 -0.132 (-17.6% 0.008 (1.3%) 12/28/2020 65 0.610 -2.7 -0.139 (-18.6% -0.094 (-13.3% 09/21/2018 63 0.704 -1.9 -0.045 (-6.1%) -0.015 (-2.1%) 07/04/2016 61 0.719 -1.8 -0.030 (-4.0%) -0.030 (-4.0%) 03/21/2014 58 0.750 -1.6 *Denotes significance at 95% confidence level, LSC for AP Spine = 0.022 g/cm2, LSC for Total Hip = 0.027 g/cm2 # Denotes dissimilar scan types or analysis methods Clinical Information Provided by Patient: Is being treated for osteoporosis Has used the following medications: Boniva (i.e. ibandronate), Vitamin D, Calcium Patient maximum height was 66 Menopause Age: 47 No regular weight bearing exercise Drinks caffeinated beverages Onset of menses at age 15 Number of children 1 Impression: The patient has osteoporosis, based on the Total Spine T-score. No significant bone loss was observed. Discussion: PATIENT UNDER TREATMENT WITH NO SIGNIFICANT BMD LOSS SINCE LAST EXAM. In an untreated patient, BMD typically declines with age. A lack of decline or gain is usually a sign that treatment is efficacious and fracture risk is reduced. It is important to ask patients whether they are taking their medications and to encourage continued and appropriate compliance with their osteoporosis therapies to reduce fracture risk. It is also important to review their risk factors and encourage appropriate calcium and vitamin D intakes, exercise, fall prevention and other lifestyle measures. Follow-Up: Consider a repeat BMD and Vertebral Fracture Assessment (VFA) exam in 2 years or sooner if medically necessary, to reassess this patient's status. Reported by: JUVENAL on 04/28/2025 3:20:00 PM. Reviewed, dictated and finalized at location A.
== END 2025-04-28 14:38 | disposition home or self-care (01) ==
PROVIDERS: PCP Internal Medicine; Visit Provider Internal Medicine Endocrinology, Diabetes & Metabolism
DX: M81.0 Age-related osteoporosis without current pathological fracture (principal); E03.9 Hypothyroidism, unspecified; R79.89 Other specified abnormal findings of blood chemistry
CPT/HCPCS: 77080

== ENCOUNTER 2025-06-02 15:28 | Outpatient (CLI) | payer MEDICARE, SELFPAY ==
--- NOTE | ~2025-06-02 | MM_ITS ---
EXAMINATION: MM screening betito BI w brittney HISTORY: Screening TECHNIQUE: Craniocaudal and mediolateral oblique 3-D tomosynthesis images were obtained and synthetic 2-D images were generated. CAD analysis was submitted and interpreted. COMPARISON: No prior mammogram is available for comparison at this institution. BREAST PARENCHYMAL COMPOSITION: Not dense: There are scattered areas of fibroglandular density. FINDINGS: There is no evidence of suspicious mass, calcification, or architectural distortion to sugg est malignancy in either breast. There has been no suspicious interval change. IMPRESSION: 1. No mammographic evidence of malignancy. 2. Recommend routine screening mammography in one year. BI-RADS Category 1: Negative Reviewed, dictated and finalized at location B.
--- OUTSIDE RECORDS SUMMARY | 2025-06-02 15:31 | XMS_ITS | Clinical Summary ---
Author Organization [facility] Address [facility] [place] [address] Care Team Providers Care Turbine Attendant Name Role Phone Tyshawn Bains MD Primary Care Provider [phone] Allergies No known active allergies Medications atorvastatin [...] a work-up with her ENT and her selling manager. Plan: - Orthostatic vitals for 2 weeks. If no OH, she should return to ENT for an evaluation. - Discuss with selling manager her symptoms in the upcoming visit. Potential [...] 2024 09/07/2021, 02/28/2021, 01/31/2021 Influenza Vaccine (#1) 2025 , 11/01/2019, 08/21/2017 Insurance [facility] MEDICARE Address: [facility] [address] [place] [address] MEDICARE ADVANTAGE [facility] MED[facility] Address: [address] [address] [place] [address] [employer] MEDICARE ADVANTAGE [facility] MEDICARE Address: [facility] [address] [place] [address] Care Teams Turbine Attendant Relationship Specialty Start Date End Date Tyshawn Bains MD PCP - General 11/17/20
--- OUTSIDE RECORDS SUMMARY | 2025-06-02 15:31 | XMS_ITS | Data Portability ---
Author Organization [place] [facility] [employer], Main Office Address [address] [place] [address] Care Team Providers Care Director Diversity Name Role Phone NIDIA HERRERA Primary Care Provider Assessment No assessment recorded. Plan of Treatment Reminders Order Date Submit Date Provider Last Modified By Organization Details Last Modified Time Details Appointments Any 15 2024 10:00A Lucila Herrera MD Not available Not available Not available Any 2024 02:15P Lucila Herrera MD Not available Not available Not available Lab TSH, serum or plasma [address] [facility] (Lab), [address] [place] [address], [id number], 04/28/2025 04:27:11 T4, free, serum [address] [facility] (Lab), [address] [place] [address], [id number], 04/28/2025 04:27:12 T3, free, serum or plasma [address] [facility] (Lab), [address] [place] [address], [id number], 04/28/2025 04:27:12 TSH, serum or plasma [address] (Lab), [address] [place] [address], [id number], 03/11/2025 09:38:11 T4, free, serum [address] (Lab), [address] [facility] [address], [place], [address], 03/11/2025 09:38:11 T3, free, serum or plasma 2023 [facility] (Lab), [facility] [address], [place], [address], 01/29/2025 14:25:38 lipid panel, serum [address] (Lab), [facility] [address], [place], [address], 03/11/2025 09:38:10 CMP, serum or plasma 2023 [facility] (Lab), [facility] [address], [place], [address], 01/29/2025 14:36:30 Referral None recorded. Procedures None recorded. Surgeries None recorded. Imaging CT, chest, w/o contrast - Please call patinet to schedule. 2023 [facility], [address], [place], [address], 09/22/2024 18:59:15 Medication Orders atorvasta tin 10 mg tablet 2023 [place] [facility], [address], [address], [place], [place], [phone], 11/29/2023 10:50:59 fludrocor tisone 0.1 mg tablet 2023 [place] [facility], [address], [address], [place], [place], [phone], 11/29/2023 10:50:57 Patient TargetsNo targets recorded. Patient Instructions Encounter Date Encounter Id Patient Instructions Last Modified By Organization Details Last Modified Time 04/09/2024 [id number] dementia rating scale-2* Not available 04/09/2024 12:02:38 alcohol misuse* Not available 04/09/2024 12:02:38 depression screening* Not available 04/09/2024 12:02:38 multi-dimensiona l health assessment questionnaire* Not available 04/09/2024 12:02:38 Personalized Hea lt Plan and Screening Recommendations Advance Directives - Do you have one? No Not interested at this time Advance Directives - Do we have your advance directive on file in your health record? Primary Prevention/Interven tion (prevents or decreases the chance of common diseases from occurring) Smoking Risk: Non Smoker Alcohol Misuse Screening: Negative Weight: Appropriate Physical activity: Need more exercise/physical activity Nutrition: Average Eat eart healthy diet Fall Risk (screened [...] Cancer Screening: No screening necessary Osteoporosis Screening: up to date Date Screening Last Performed: Colon Cancer Screening: Colonoscopy Recommended Date Screening Last Performed: Eye Disease Screening: Your next exam in: goes yearly Dementia Risk: Low I have no recommendations Depression Screening: Negative I have no recommendations [email or web address] Not available 04/09/2024 11:09:01 Reason for Referral None Reported. Results Created Date Observation Date Name Description Value Unit Range Abnormal Flag Note LastModifiedBy Organization Detail LastModifiedTime 05/01/20 24 04/30/2024 MAMMO , scree jo ann, digit al, bilat eral No observ ation record ed. Not Available 2023 16:14:12 09/22/20 24 09/19/2024 CT, chest , w/o contr ast No observ ation record ed. [email or web address] [facility] [address], [place], [address], 09/24/2024 15:49:43 05/05/20 25 05/04/2025 bone densi ty No observ ation record ed. Not Available 2024 10:45:54 Result Notes None recorded. Problems Name Problem SNOMED Code Status Onset Date Resolution Date Notes Provider Name and Address Organization Details Recorded Time Transient cerebral ischemia 091193324 Completed 201612/18/2018 Not Available [facility] 3 02:52:16 Osteopeni a 277063086 Active 2016 Not Available [facility] 3 02:52:16 Hyperlipi demia 83111333 Active 2016 Not Available [facility] 3 02:52:16 Dizziness 124731035 Completed 201712/18/2018 Not Available [facility] 3 02:52:16 Rhinitis 81313683 Completed 201705/24/2021 Not Available [facility] 3 02:52:17 History of chest pain 75424238167 360445 Completed 201804/27/2022 Not Available [facility] 3 02:52:16 Allergic rhinitis 55938916 Active 2018 Not Available [facility] 3 02:52:17 Nodule of lung 813275194 Active 2020 Not Available [facility] 3 02:52:17 Dizziness 231031417 Active 2021 Not Available [facility] 3 02:52:16 Solitary nodule of lung 688774996 Active 2021 Not Available [facility] 3 02:52:16 Low blood pressure 65334615 Active 2021 Not Available [facility] 3 02:52:16 Hypotensi ve episode 15025266 Active 2021 JENNI Waggoner, [place] [facility] [employer] [facility] 4 14:49:38 Hypothyro idism 80939094 Active 2022 JENNI Waggoner, [facility] [employer] [facility] 4 14:49:36 Orthostat ic hypotensi on 77198890 Active 2022 Shirley Almonte MD [address] [address], [place], [address] , [facility] [employer] [facility] 3 12:40:26 Osteoporo sis 76697637 Active 2022 Nidia Herrera MD [address] [facility] [address], [place], [address] , [facility] [employer] 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 Procedures Surgical History Date Name Laterality Status Provider Name and Address Organization Details Recorded Time 4 Medicare Wellness CPT Code, Initial completed Alla Osborn RN [facility] [employer] [facility] 04/09/2024 11:04:06 Imaging Results None recorded. Procedure Notes None recorded. Medical Equipment None Reported. Allergies No known drug allergies Medications Name Sig Start Date Stop Date Status Note LastModified by Organization Details LastModified Time prednisone 10 mg tablet take [id number], [id number], 1x2 days 12/18 completed Not Available Not [...] EYE FOUR TIMES DAILY FOR 1 WEEK 06/02 completed Not Available Not Available Not Available dexamethaso ne 1 mg tablet TAKE [...] TABLET BY MOUTH ONCE DAILY 2024 active CHANDLER NOV ok to rf Not Available Not Available Not Available hydroxyzine HCl 25 mg tablet 12/25 completed [...] mcg/actuati on nasal spray,suspe nsion USE 2 SPRAY(S) IN EACH NOSTRIL ONCE DAILY active Not Available Not Available [...] in Arterial blood by Pulse oximetry Systolic And Diastolic Provider Name and Address Organization Details Last Updated DateTime 4 165.1 cm 22.8 kg/m2 51499.1 5 g 97.3 [degF] 70 /min 99 % 99 % 118/70 mm[Hg] JENNI Champion Luis Carlos [place] [employer] [facility] 4 10:41:43 Date Recorded Body height Body mass index (BMI) Body weight Body temperature Heart rate Oxygen saturation Oxygen saturation in Arterial blood by Pulse oximetry Systolic And Diastolic Provider Name and Address Organization Details Last Updated DateTime 5 165.1 cm 22.1 kg/m2 95220.7 9 g 97.2 [degF] 71 /min 98 % 98 % 122/70 mm[Hg] Emilia garcia [facility] [employer] [facility] 5 15:44:35 Date Recorded Pain severity - 0-10 verbal numeric rating [Score] - Reported Provider Name and Address Organization Details Last Updated DateTime 04/09/2024 0 Alla Osborn RN [facility] [employer] [facility] 04/09/2024 11:04:22 Date Recorded Body height Body mass index (BMI) Body weight Heart rate Oxygen saturation Oxygen saturation in Arterial blood by Pulse oximetry Systolic And Diastolic Provider Name and Address Organization Details Last Updated DateTime 4 165.1 cm 22.6 kg/m2 68526.5 6 g 74 /min 99 % 99 % 126/80 mm[Hg] Sarah Gonzalez [facility] [employer] [facility] 4 10:22:48 Date Recorded Body height Body mass index (BMI) Body weight Body temperature Heart rate Oxygen saturation Oxygen saturation in Arterial blood by Pulse oximetry Systolic And Diastolic Provider Name and Address Organization Details Last Updated DateTime 5 165.1 cm 21.6 kg/m2 05909.0 1 g 96.9 [degF] 71 /min 98 % 98 % 128/66 mm[Hg] Emilia garcia [facility] [employer] [facility] 5 10:50:31 Date Recorded Body height Body mass index (BMI) Body weight Body temperature Heart rate Oxygen saturation Oxygen saturation in Arterial blood by Pulse oximetry Systolic And Diastolic Provider Name and Address Organization Details Last Updated DateTime 4 165.1 cm 22.8 kg/m2 97093.1 5 g 97.6 [degF] 88 /min 98 % 98 % 122/70 mm[Hg] Emilia garcia [facility] [employer] [facility] 4 15:37:55 Social History Question Answer Notes LastModified by Organizat ion Details LastModified Time Tobacco Smoking Status Former Smoker quit 20 years ago Not Available [employer] 01/03/2023 02:33:00 Do You Have An Advance Directive? No Information not available 04/09/2024 Are You Blind Or Do You Have Difficulty Seeing? No MIGRATION.04981 [id number] Information not available 01/03/2023 What Is Your Level Of Caffeine Consumption? Occasional MIGRATION.37619 55108 Information not available 01/03/2023 How Much Tobacco Do You Chew? None MIGRATION.87823 62624 Information not available 01/03/2023 In The 14 Days Before Symptom Onset, Have You Had Close Contact With A Laboratory-confi rmed COVID-19 While That Case Was Ill? No MIGRATION.24425 83277 Information not available 01/03/2023 In The 14 Days Before Symptom Onset, Have You Had Close Contact With A Person Who Is Under Investigation For COVID-19 While That Person Was Ill? No MIGRATION.18366 10120 Information not available 01/03/2023 Are You Deaf Or Do You Have Serious Difficulty Hearing? No MIGRATION.52025 98030 Information not available 01/03/2023 What Type Of Diet Are You Following? REGULAR MIGRATION.23229 58559 Information not available 01/03/2023 Which Illicit Or Recreational Drugs Have You Used? None MIGRATION.89694 99708 Information not available 01/03/2023 Have There Been Any Changes To Your Family Or Social Situation? No Information not available 04/09/2024 What Is The Fluoride Status Of Your Home? Unknown Information not available 04/09/2024 Where Do You Live? [facility] [email or web address] Information not available 04/09/2024 Are You Able To Care For Yourself? Yes [email or web address] Information not available 04/09/2024 Are You Blind Or Do Yo Have Difficulty Seeing? No [email or web address] Information not available 04/09/2024 Are You Deaf Or Do You Have Serious Difficulty Hearing? No Information not available 04/09/2024 Live Alone Of With Others? With Others [email or web address] Information not available 04/09/2024 Do You Have A Medical Power Of Property Utilization Officer? No [email or web address] Information not available 04/09/2024 What Was The Date Of Your Most Recent Tobacco Screening? 04/09/2024 [email or web address] Information not available 04/09/2024 Do You Have Any Pets? No Information not available 04/09/2024 What Is Your Relationship Status? MIGRATION.50615 75263 Information not available 01/03/2023 Do You Use Your Seat Belt Or Car Seat Routinely? Yes [email or web address] Information not available 04/09/2024 Do You Have Smoke And Carbon Monoxide Detectors In Your Home? Yes [email or web address] Information not available 04/09/2024 At What Age Did You Start Smoking Tobacco? 19 MIGRATION.85282 09901 Information not available 01/03/2023 How Much Tobacco Do You Smoke? 0.5 PPD MIGRATION.65174 39104 Information not available 01/03/2023 Have You Recently Traveled Abroad? No MIGRATION.10944 11097 Information not available 01/03/2023 Do You Have Difficulty Walking Or Climbing Stairs? No MIGRATION.09620 87452 Information not available 01/03/2023 Sex: Female Functional Status Question Answer Note LastModified by Organizat ion Details LastModified Time Do you use any illicit or recreational drugs? No MIGRATION.6424107 026 Information not available 01/03/2023 What is your level of alcohol consumption? None MIGRATION.0368177 026 Information not available 01/03/2023 Do you have transportation difficulties? No MIGRATION.1488010 026 Information not available 01/03/2023 Are you able to walk? YESWOREST MIGRATION.5038980 026 Information not available 01/03/2023 Do you have difficulty doing errands alone? No MIGRATION.1087779 026 Information not available 01/03/2023 Are you able to care for yourself independently? Yes MIGRATION.4334562 026 Information not available 01/03/2023 Do you have difficulty dressing, bathing, grooming, or toileting? No MIGRATION.8073002 026 Information not available 01/03/2023 What is your exercise level? Occasional MIGRATION.8753613 026 Information not available 01/03/2023 Mental Status Question Answer Note LastModified by Organizat ion Details LastModified Time Do you have difficulty concentrating, remembering or making decisions? No MIGRATION.[id number] 6 Information not available 01/03/2023 Family History Relationship Description Onset Age of this Age Resolved Age Notes LastModified by Organization Details LastModified Time Father Heart disease MIGRATION.267 [id number] Not available 01/03/2023 02:43:16 Father Essential hypertension MIGRATION.675 [id number] Not available 01/03/2023 02:43:16 Brother Heart disease MIGRATION.080 [id number] Not available 01/03/2023 02:43:16 Sister Heart disease MIGRATION.932 [id number] Not available 01/03/2023 02:43:16 Sister Neoplasm of bone marrow MIGRATION.454 [id number] Not available 01/03/2023 02:43:16 Maternal Uncle Diabetes mellitus MIGRATION.090 [id number] Not available 01/03/2023 02:43:16 Medical History Condition Response HEADACHES/MIGRAINES Y DIZZINESS Y OSTEOPOROSIS Y HIGH CHOLESTEROL / HYPERLIPIDEMIA Y Gynecological HistoryNo gynecological history recorded. Obstetrics History GPAL:G 0 P 0 0 0 0 Immunizations Vaccine Type Date Status Note Provider Nam e and Address Organization Details Recorded Time COVID-19, mRNA, LNP-S, PF, 30 mcg/0.3 mL dose 1 completed Not Available [facility] 01/03/2023 03:05:59 COVID-19, mRNA, LNP-S, PF, 30 mcg/0.3 mL dose 1 completed Not Available [facility] 01/03/2023 03:05:59 COVID-19, mRNA, LNP-S, PF, 30 mcg/0.3 mL dose 1 completed Not Available [facility] 01/03/2023 03:05:59 Influenza, split virus, quadrivalent, preservative 0 completed Not Available [facility] 01/03/2023 03:06:00 Influenza, split virus, quadrivalent, preservative 9 completed Not Available [facility] 01/03/2023 03:06:00 Influenza, split virus, quadrivalent, PF 7 completed Not Available [facility] 01/03/2023 03:06:00 Influenza, adjuvanted, quadrivalent, PF 1 completed Not Available [facility] 06/02/2025 10:44:52 Influenza, adjuvanted, quadrivalent, PF 2 completed Not Available [facility] 06/02/2025 10:44:52 COVID-19, mRNA, LNP-S, bivalent, PF, 30 mcg/0.3 mL dose 2 completed Not Available [facility] 06/02/2025 10:44:52 Influenza, adjuvanted, quadrivalent, PF 3 completed Not Available [facility] 06/02/2025 10:44:52 Influenza, high-dose, trivalent, PF 4 completed Not Available [facility] 06/02/2025 10:44:52 Past Encounters Encounter ID Performer Location Encounter Start Date Encounter Closed Date Diagnosis/Indication Diagnosis SNOMED-CT Code Diagnosis ICD10 Code Diagnosis Note [id number] Nidia Herrera MD S_[facility] Internal Med [id number] [facility] [place] [address] 01/14/2021 00:00:00 01/14/2021 12:39:50 [id number] MD RODY Mchugh IGRATION_ DEFAULT_1 _1 , 01/20/2021 00:00:00 01/20/2021 12:08:36 [id number] MD RODY Mchugh IGRATION_ DEFAULT_1 _1 , 04/28/2021 00:00:00 04/28/2021 13:40:34 [id number] Jose Teran MD [facility]_[address] [address] 05/30/2021 00:00:00 05/30/2021 10:34:34 [id number] Nidia Herrera MD [facility] [address] [address] 06/17/2021 00:00:00 06/17/2021 13:10:02 [id number] MD RODY Mchugh IGRATION_ DEFAULT_1 _1 , 07/28/2021 00:00:00 07/28/2021 13:48:02 [id number] Jose Teran MD [facility] [address] 10/31/2021 00:00:00 10/31/2021 12:02:25 [id number] MD RODY Mchugh IGRATION_ DEFAULT_1 _1 , 11/24/2021 00:00:00 11/24/2021 11:09:04 [id number] Nidia Herrera MD [facility] Internal [facility] [address] [place] [address] 04/27/2022 00:00:00 04/27/2022 14:41:18 [id number] Jose Teran MD [facility] [address] [address] 06/06/2022 00:00:00 06/06/2022 15:12:18 [id number] Shirley Almonte MD Luis [facility] [place] [place] [address] [place] [address] 08/25/2022 00:00:00 08/25/2022 21:01:21 [id number] Jose Teran MD Luis Carlos_[facility] [address] [address] 11/07/2022 00:00:00 11/07/2022 11:24:23 [id number] Shirley Almonte MD [facility] [place] [place] [address] [place] [address] 02/20/2023 12:15:46 02/20/2023 12:44:41 Hypothyroidism 95844469 E03.9 TSH borderline with normal free hormones- will repeat in March to see if we can make a dose adjustment in her unithroid- she is on 25 mcg currently and tolerating well- sleeping better but mild fatigue. She might be able to bump her dose to two tablets on Sun/Sun/ and continue on the one tablet all [...] on. Screening for malignant neoplasm of colon 734016771 Z12.11 refer to gastroente rology as patient due for screening scan. Orthostati c hypotension 06145596 I95.1 Continue on florinef 0.1 mg up [...] she chooses to go outside of the [facility] to obtain labwork she was [...] in her case. She voiced understand ing. [id number] Nidia Herrera MD [facility] Internal [facility] [address] [place] [address] 04/30/2023 11:35:43 04/30/2023 12:18:33 Hyperlipidemia 62300281 E78.5 on meds Osteopenia 089098131 M85 .80 on vit D Low blood pressure 87487 003 I95.9 Florinef raya fox it, seeing endo Allergic rhinitis 497567 04 J30.9 meds help Solitary n odule of lung 566397479 R91.1 needs f/u CT chest Dizziness 896281764 R42 seeing chiropract or Adult heal th examination 554551706 Z00.00 Colonoscop y- >10 yrs ago, endo ordered it, getting it in 2 weeksColo- gonsalod - 2018 - NEGMammogr am- ex a- 03/2023FLU - 2COVID- 01/31-, 02/28/2021 History of chest pain 16 06931106 2963930 Z87.898 tress test, Holter, sleep study neg in 2018 Hypothyroidism 05938677 E03.9 on meds from endo [id number] Shirley Almonte MD [facility] [place] [address] [place] [address] 08/07/2023 11:16:46 08/07/2023 11:47:17 Hypothyroidism 43268052 E03.9 TSH and FT4 in ideal range- [...] and reduce inflammati on. Orthostati c hypotension 36752950 I95.1 Continue on florinef 0.1 mg up [...] answered and refills necessary at visit today. [id number] Nidia Herrera MD [facility] Internal Med [address] [facility] [place] [address] 11/29/2023 10:21:38 11/29/2023 11:04:29 Hyperlipidemia 23377512 E78.5 on meds Osteopenia 145813824 M85 .80 on vit D History of chest pain 16 85571294 0525996 Z87.898 stress test, Holter, sleep study neg in 2018 Low blood pressure 38245 003 I95.9 Florinef maintainin g it, Allergic rhinitis 098055 04 J30.9 meds help Solitary n odule of lung 858190632 R91.1 CT chest 05/27, 6 mm nodule Dizziness 725892170 R42 better Adult heal th examination 121137115 Z00.00 Colonoscop y- >10 yrs ago, aware that it is due, will let me know when wantsColo- guard - 2017 - NEGMammogr am- ex a- 03/2023FLU - 3COV ID- 01/31-, 02/28/2021 Hypothyroidism 92059571 E03.9 on meds Orthostati c hypotension 81376522 I95.1 stable with meds [id number] Niida Herrera MD [facility] Internal Med [facility] [address] [facility] [place] [address] 04/09/2024 10:16:22 04/09/2024 11:04:35 Hyperlipidemia 74748895 E78.5 on meds History of chest pain 16 17294073 5223304 Z87.898 stress test, Holter, sleep study neg in 2018 Allergic rhinitis 586087 04 J30.9 meds help Solitary n odule of lung 349551153 R91.1 CT chest 05/27, 6 mm nodule, order next time Dizziness 166533312 R42 advised to see neurology at [facility] Adult heal th examination 727257182 Z00.00 Colonoscop y- >10 yrs ago, aware that it is due, will let me know when wantsColo- guard - 2017 - NEGMammogr am- 03/2023- ScheduledP neumovax- wants to waitDexa- 03/2023FLU - OV ID- , 02/28/2021 Hypothyroidism 63972030 E03.9 on meds , TO SEE NEW ENDO Orthostati c hypotension 56330853 I95.1 stable with meds Screening for disorder 531174910 Z13.9 [id number] Nidia Herrera MD [facility] Internal Med [address] [facility] [place] [address] 08/27/2024 15:15:41 08/27/2024 16:37:56 Hyperlipidemia 24627892 E78.5 on meds History of chest pain 16 28639127 0203558 Z87.898 stress test, Holter, sleep study neg in 2018 Allergic rhinitis 033163 04 J30.9 meds help Solitary n odule of lung 798018105 R91.1 CT chest 05/27, 6 mm nodule, Dizziness 545286665 R42 to see neurology at [facility], STILL HAS MILD SYMPTOMS Adult heal th examination 061704530 Z00.00 Colonoscop y- >10 yrs ago, aware that it is due, will let me know when wantsColo- guard - 2018 - NEGMammogr am- 04/30/24Pn eumovax- wants to waitDexa- 03/2023FLU - 08/26/2024 ([facility] )COVID- , 02/28/2021 [employer], FORMS SIGNED Hypothyroidism 35441735 E03.9 on meds , Orthostati c hypotension 46592753 I95.1 stable with meds [id number] Nidia Herrera MD [facility] Internal Med [address] [facility] [place] [address] 01/28/2025 15:24:10 01/28/2025 16:37:24 Hyperlipidemia 26186685 E78.5 under control History of chest pain 16 50605213 3773389 Z87.898 stress test, Holter, sleep study neg in 2018 Allergic rhinitis 984876 04 J30.9 meds help Solitary n odule of lung 397668302 R91.1 stable Dizziness 801701650 R42 to see neurology at [facility], STILL HAS MILD SYMPTOMS Adult heal th examination 803975816 Z00.00 Colonoscop y- >10 yrs ago, aware that it is due, will let me know when wantsColo- guard - 2017 - NEGMammogr am- 04/30/24Pn eumovax- DOES NOT WANTDexa- 03/2023FLU - 08/26/2024 ([facility] )COVID- 01/31-, 02/28/2021 [employer], FORMS SIGNED Hypothyroidism 81203449 E03.9 on meds , Orthostati c hypotension 01852171 I95.1 stable with meds [id number] Nidia Herrera MD [facility] Internal Med [address] [place] [address] 06/02/2025 10:42:37 06/02/2025 11:25:52 Hyperlipidemia 68929779 E78.5 under control History of chest pain 16 21180195 6446550 Z87.898 stress test, Holter, sleep study neg in 2017, no more symptoms Allergic rhinitis 165988 04 J30.9 meds help Solitary n odule of lung 011336769 R91.1 CT in 09/28 Dizziness 292348456 R42 not many symptoms any more Adult [facility] examination 674838406 Z00.00 Colonoscop y- >10 yrs ago, aware that it is due, will let me know when wantsColo- guard - 2017 - NEGMammogr am- 04/30/24- Having it today 06/02/25Pne umovax- DOES NOT WANTDexa- 05/04/25FLU - 08/26/2024 ([facility] )COVID- 01/31-, 02/28/2021 PHYSICAL DONE FOR NEW JOB, FORMS SIGNED Hypothyroidism 49924777 E03.9 on meds Orthostati c hypotension 32288677 I95.1 stable with meds Health Concerns Section Related Observation LastModified by Organization Molly stout LastModified Time None Recorded Concern Status LastModified by Organization Details LastModified Time None Recorded Advance Directives Directive N: Payers Insurance Date Sequence Insurance Name Policy Number Policy Hewitt Covered Member ID Hewitt Member ID Guarantor Name 05/30/[address] [facility] (MEDICARE REPLACEMENT/A DVANTAGE - HMO) [id number] Bisi Kuhn [id number] Bisi Kuhn OBGyn Episode No OBEpisode recorded.
--- OUTSIDE RECORDS SUMMARY | 2025-06-02 15:31 | XMS_ITS | Referral Summary ---
Author Organization [facility] Address [address] [place] [address] Care Team Providers Care Investment Manager Name Role Phone Tyshawn Bains MD Primary Care Provider [phone] Allergies No known active allergies Medications atorvastatin [...] a work-up with her ENT and her employment representative. Plan: - Orthostatic vitals for 2 weeks. If no OH, she should return to ENT for an evaluation. - Discuss with employment representative her symptoms in the upcoming visit. Potential [...] Plan of Treatment Not on file [facility] Address: [address] [address] MEDICARE ADVANTAGE [facility] Address: [address] [place] [phone] [address] [facility] [id number] [facility] MEDICARE ADVANTAGE [facility] MEDICARE Address: [address] [address] Care Teams Investment Manager Relationship Specialty Start Date End Date Tyshawn Bains MD PCP - General 11/17/20
--- OUTSIDE RECORDS SUMMARY | 2025-06-02 15:32 | XMS_ITS | Continuity of Care Document ---
Author Organization [place] - [facility], [facility] Internal Med [facility] Address [address] [place] [address] Care Team Providers Care Contract Recruiter Name Role Phone TYSHAWN BAINS Primary Care Provider Assessment No assessment recorded. Plan of Treatment Reminders Order Date Submit Date Provider Last Modified By Organization Details Last Modified Time Details Appointments Any 025 10:00AM Tyshawn Bains MD Not available Not available Not available Any 025 02:15PM Tyshawn Bains MD Not available Not available Not available Lab None record ed. Referral None record ed. Procedures None record ed. Surgeries None record ed. Imaging None record ed. Medication Orders None record ed. Patient TargetsNo targets recorded. Patient InstructionsNo instructions recorded. Reason for Referral None Reported. Results Created Date Observation Date Name Description Value Unit Range Abnormal Flag Note LastModifiedBy Organization Detail LastModifiedTime 05/05/2005/04/2025 bone densi ty No observ ation record ed. Not Available 2024 10:45:54 Result Notes None recorded. Problems Name Problem SNOMED Code Status Onset Date Resolution Date Notes Provider Name and Address Organization Details Recorded Time Transient cerebral ischemia 682781640 Completed 201612/18/2018 Not Available [facility] 3 02:52:16 Osteopeni a 765452281 Active 2016 Not Available [facility] 3 02:52:16 Hyperlipi demia 64145491 Active 2016 Not Available [facility] 3 02:52:16 Dizziness 692969589 Completed 201712/18/2018 Not Available [facility] 3 02:52:16 Rhinitis 70568817 Completed 201705/24/2021 Not Available [facility] 3 02:52:17 History of chest pain 43615688290 752650 Completed 201804/27/2022 Not Available [facility] 3 02:52:16 Allergic rhinitis 08601188 Active 2018 Not Available [facility] 3 02:52:17 Nodule of lung 592799221 Active 2020 Not Available [facility] 3 02:52:17 Dizziness 331296096 Active 2021 Not Available [facility] 3 02:52:16 Solitary nodule of lung 475895635 Active 2021 Not Available [facility] 3 02:52:16 Low blood pressure 45085531 Active 2021 Not Available [facility] 3 02:52:16 Hypotensi ve episode 96526077 Active 2021 Emilia fu RMA null, [facility] 4 14:49:38 Hypothyro idism 19762827 Active 2022 Emilia fu RMA null, [place] - [facility] 4 14:49:36 Orthostat ic hypotensi on 80570076 Active 2022 Shirley Almonte MD [address] [address], [place], [address] , [facility] 3 12:40:26 Osteoporo sis 42197416 Active 2022 Tyshawn Bains MD [address] [address], [place], [address] , [facility] 3 09:45:10 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 Procedures Surgical History Date Name Laterality Status Provider Name and Address Organization Details Recorded Time Medicare Wellness CPT Code, Initial completed Alla Osborn RN [place] [employer] [facility] 04/09/2024 11:04:06 Imaging Results None recorded. Procedure Notes None recorded. Medical Equipment None Reported. Allergies No known drug allergies Medications Name Sig Start Date Stop Date Status Note LastModified by Organization Details LastModified Time prednisone 10 mg tablet take 1s6hnbs, 8b5nrpq, 1x2 days 12/18 completed Not Available Not [...] Updated DateTime 5 165.1 cm 21.6 kg/m2 76693.0 1 g 96.9 [degF] 71 /min 98 % 98 % 128/66 mm[Hg] JENNI Champion - [place] [employer] 5 10:50:31 Social History Question Answer Notes LastModified by Organizat ion Details LastModified Time Tobacco Smoking Status Former Smoker quit 20 years ago Not Available [facility] 01/03/2023 02:33:00 Do You Have An Advance Directive? No [email or web address] Information not available 04/09/2024 Are You Blind Or Do You Have Difficulty Seeing? No MIGRATION.89059 74324 Information not available 01/03/2023 What Is Your Level Of Caffeine Consumption? Occasional MIGRATION.77888 21982 Information not available 01/03/2023 How Much Tobacco Do You Chew? None MIGRATION.15863 58861 Information not available 01/03/2023 In The 14 Days Before Symptom Onset, Have You Had Close Contact With A Laboratory-confi rmed COVID-19 While That Case Was Ill? No MIGRATION.50963 03381 Information not available 01/03/2023 In The 14 Days Before Symptom Onset, Have You Had Close Contact With A Person Who Is Under Investigation For COVID-19 While That Person Was Ill? No MIGRATION.74837 58378 Information not available 01/03/2023 Are You Deaf Or Do You Have Serious Difficulty Hearing? No MIGRATION.77926 08494 Information not available 01/03/2023 What Type Of Diet Are You Following? REGULAR MIGRATION.29623 45313 Information not available 01/03/2023 Which Illicit Or Recreational Drugs Have You Used? None MIGRATION.21205 48264 Information not available 01/03/2023 Have There Been Any Changes To Your Family Or Social Situation? No Information not available 04/09/2024 What Is The Fluoride Status Of Your Home? Unknown [email or web address] Information not available 04/09/2024 Where Do You Live? [facility] Information not available 04/09/2024 Are You Able To Care For Yourself? Yes [email or web address] Information not available 04/09/2024 Are You Blind Or Do Yo Have Difficulty Seeing? No [email or web address] Information not available 04/09/2024 Are You Deaf Or Do You Have Serious Difficulty Hearing? No [email or web address] Information not available 04/09/2024 Live Alone Of With Others? With Others Information not available 04/09/2024 Do You Have A Medical Power Of Electrical Assembler? No [email or web address] Information not available 04/09/2024 What Was The Date Of Your Most Recent Tobacco Screening? 04/09/2024 [email or web address] Information not available 04/09/2024 Do You Have Any Pets? No [email or web address] Information not available 04/09/2024 What Is Your Relationship Status? MIGRATION.47697 42690 Information not available 01/03/2023 Do You Use Your Seat Belt Or Car Seat Routinely? Yes [email or web address] Information not available 04/09/2024 Do You Have Smoke And Carbon Monoxide Detectors In Your Home? Yes [email or web address] Information not available 04/09/2024 At What Age Did You Start Smoking Tobacco? 19 MIGRATION.33846 97176 Information not available 01/03/2023 How Much Tobacco Do You Smoke? 0.5 PPD MIGRATION.28162 15831 Information not available 01/03/2023 Have You Recently Traveled Abroad? No MIGRATION.82105 28629 Information not available 01/03/2023 Do You Have Difficulty Walking Or Climbing Stairs? No MIGRATION.17755 66093 Information not available 01/03/2023 Sex: Female Functional Status Question Answer Note LastModified by Organizat Tango Details LastModified Time Do you use any illicit or recreational drugs? No MIGRATION.0311546 026 Information not available 01/03/2023 What is your level of alcohol consumption? None MIGRATION.0041128 026 Information not available 01/03/2023 Do you have transportation difficulties? No MIGRATION.2046845 026 Information not available 01/03/2023 Are you able to walk? YESWOREST MIGRATION.0952229 026 Information not available 01/03/2023 Do you have difficulty doing errands alone? No MIGRATION.1170748 026 Information not available 01/03/2023 Are you able to care for yourself independently? Yes MIGRATION.5792345 026 Information not available 01/03/2023 Do you have difficulty dressing, bathing, grooming, or toileting? No MIGRATION.5200421 026 Information not available 01/03/2023 What is your exercise level? Occasional MIGRATION.8552072 026 Information not available 01/03/2023 Mental Status Question Answer Note LastModified by Organizat Tango Details LastModified Time Do you have difficulty concentrating, remembering or making decisions? No MIGRATION.568692770 6 Information not available 01/03/2023 Family History Relationship Description Onset Age of this Age Resolved Age Notes LastModified by Organization Details LastModified Time Father Heart disease MIGRATION.828 [id number] Not available 01/03/2023 02:43:16 Father Essential hypertension MIGRATION.933 9692792 Not available 01/03/2023 02:43:16 Brother Heart disease MIGRATION.353 5152308 Not available 01/03/2023 02:43:16 Sister Heart disease MIGRATION.923 7426398 Not available 01/03/2023 02:43:16 Sister Neoplasm of bone marrow MIGRATION.956 3675703 Not available 01/03/2023 02:43:16 Maternal Uncle Diabetes mellitus MIGRATION.841 6107435 Not available 01/03/2023 02:43:16 Medical History Condition Response OSTEOPOROSIS Y HEADACHES/MIGRAINES Y DIZZINESS Y HIGH CHOLESTEROL / HYPERLIPIDEMIA Y Gynecological HistoryNo gynecological history recorded. Obstetrics History GPAL:G 0 P 0 0 0 0 Immunizations Vaccine Type Date Status Note Provider Nam e and Address Organization Details Recorded Time COVID-19, mRNA, LNP-S, PF, 30 mcg/0.3 mL dose 1 completed Not Available [facility] 01/03/2023 03:05:59 COVID-19, mRNA, LNP-S, PF, 30 mcg/0.3 mL dose 1 completed Not Available [facility] 01/03/2023 03:05:59 COVID-19, mRNA, LNP-S, PF, 30 mcg/0.3 mL dose 1 completed Not Available [facility] 01/03/2023 03:05:59 Influenza, split virus, quadrivalent, preservative 0 completed Not Available [facility] 01/03/2023 03:06:00 Influenza, split virus, quadrivalent, preservative 9 completed Not Available [facility] 01/03/2023 03:06:00 Influenza, split virus, quadrivalent, PF 7 completed Not Available [facility] 01/03/2023 03:06:00 Influenza, adjuvanted, quadrivalent, PF 1 completed Not Available [facility] 06/02/2025 10:44:52 Influenza, adjuvanted, quadrivalent, PF 2 completed Not Available [facility] 06/02/2025 10:44:52 COVID-19, mRNA, LNP-S, bivalent, PF, 30 mcg/0.3 mL dose 2 completed Not Available [facility] 06/02/2025 10:44:52 Influenza, adjuvanted, quadrivalent, PF 3 completed Not Available [facility] 06/02/2025 10:44:52 Influenza, high-dose, trivalent, PF 4 completed Not Available [facility] 06/02/2025 10:44:52 Past Encounters Encounter ID Performer Location Encounter Start Date Encounter Closed Date Diagnosis/Indication Diagnosis SNOMED-CT Code Diagnosis ICD10 Code Diagnosis Note [id number] Tyshawn Bains MD [facility] [address] [facility] [place] [address] 06/02/2025 10:42:37 06/02/2025 11:25:52 Hyperlipidemia 84194551 E78.5 under control History of chest pain 16 79729453 4362471 Z87.898 stress test, Holter, sleep study neg in 2018, no more symptoms Allergic rhinitis 927559 04 J30.9 meds help Solitary n odule of lung 911947031 R91.1 CT in 09/28 Dizziness 605207901 R42 not many symptoms any more Adult heal th examination 687411955 Z00.00 Colonoscop y- >10 yrs ago, aware that it is due, will let me know when wantsColo- guard - 2018 - NEGMammogr am- 04/30/24- Having it today 06/02/25Pne umovax- DOES NOT WANTDexa- 05/04/25FLU - 08/26/2024 ([facility] )COVID- 01/31-, 02/28/2021 PHYSICAL DONE FOR NEW JOB, FORMS SIGNED Hypothyroidism 41427668 E03.9 on meds Orthostati c hypotension 05682608 I95.1 stable with meds Health Concerns Section Related Observation LastModified by Organization Detai ls LastModified Time None Recorded Concern Status LastModified by Organization Details LastModified Time None Recorded Payers Encounter Date Sequence Insurance Name Policy Number Policy Hewitt Covered Member ID Hewitt Member ID Guarantor Name 06/02/2025 1 [facility] (MEDICARE REPLACEMENT/A DVANTAGE - HMO) [id number] Bisi A Chrise [id number] Bisi A Friliza OBGyn Episode No OBEpisode recorded.
--- OUTSIDE RECORDS SUMMARY | 2025-06-02 15:32 | XMS_ITS | Clinical Summary ---
Author Organization [facility] Address [address] [place] [address] Phone Care Team Providers Care Dry Cleaning Checker Name Role Phone Tyshawn Bains MD Primary Care Provider [phone] Lara Solitario APRN, WINDOWS SERVER ENGINEER Unavailable [phone] Allergies No known active allergies Medications atorvastatin [...] Virus (HCV) Screening 1955 TdaP Immunization 1956 Cologuard 2001 Colonoscopy 2001 Colorectal Cancer Screening 2001 Immunochemical Fecal Occult Blood 2001 Pneumococcal Immunization (50+ years) (1 of 1 - PCV) 2006 Zoster Immunization (1 of 2) 2006 SARS-COV-2 Immunization ( - season) 2024 08/10/2022, 09/07/2021, 02/28/2021, Additional history exists Influenza Immunization (#1) 07/06/202504/2022, 09/07/2021, 08/30/2020, Additional history exists Respiratory Syncytial [...] to complete this topic Insurance MEDICARE C [facility] on file Care Teams Dry Cleaning Checker Relationship Specialty Start Date End Date Tyshawn Bains MD PCP - General Internal Medicine 05/03/22 Lara Solitario APRN, WINDOWS SERVER ENGINEER [address] [place] [address] Nurse Practitioner Advanced Practice Nurse 07/12/22
== END 2025-06-02 15:29 | disposition home or self-care (01) ==
LOC: ANHIMG 15:29
PROVIDERS: PCP Internal Medicine; Visit Provider Obstetrics & Gynecology
DX: Z12.31 Encounter for screening mammogram for malignant neoplasm of breast (principal)
CPT/HCPCS: 77063; 77067

== ENCOUNTER 2025-08-01 07:08 | Outpatient (CLI) | payer MEDICARE, SELFPAY ==
--- OUTSIDE RECORDS SUMMARY | 2025-08-01 07:13 | XMS_ITS | Clinical Summary ---
Author Organization [facility] Address [address] [place] [address] Phone Care Team Providers Care Service Advisor Name Role Phone Tyshawn Bains MD Primary Care Provider [phone] Lara Solitario APRN, COMMUNITY CASE MANAGER Unavailable [phone] Allergies No known active allergies Medications atorvastatin [...] (1 of 2) 2006 Influenza Immunization (#1) 07/06/202504/2022, 09/07/2021, 08/30/2020, Additional history exists SARS-COV-2 Immunization ( season) 2025 08/10/2022, 09/07/2021, 02/28/2021, Additional history exists Respiratory [...] to complete this topic Insurance MEDICARE C [facility] on file Care Teams Service Advisor Relationship Specialty Start Date End Date Tyshawn Bains MD PCP - General Internal Medicine 05/03/22 Lara Solitario APRN, COMMUNITY CASE MANAGER [address] [place] [address] Nurse Practitioner Advanced Practice Nurse 07/12/22
--- OUTSIDE RECORDS SUMMARY | 2025-08-01 07:14 | XMS_ITS | Data Portability ---
Author Organization [place], Main Office Address [address] [place] [address] Care Team Providers Care Public Health Teacher Name Role Phone NIDIA HERRERA Primary Care Provider [phone] Assessment No assessment recorded. Plan of Treatment Reminders Order Date Submit Date Provider Last Modified By Organization Details Last Modified Time Details Appointments Any 15 2024 02:15P M Nidia Herrera MD Not available Not available Not available Lab TSH, serum or plasma [address] (Lab), [address] [place] [address], [id number], 06/12/2025 12:23:27 T4, free, serum [address] (Lab), [address] [place] [address], [address], 06/12/2025 12:23:28 T3, free, serum or plasma [address] (Lab), [address] [place] [address], [address], 06/12/2025 12:23:28 TSH, serum or plasma [address] (Lab), [address] [place] [address], [address], 03/11/2025 09:38:11 T4, free, serum [address] (Lab), [address] [place] [address], [address], 03/11/2025 09:38:11 T3, free, serum or plasma 2023 [facility] (Lab), [facility] [address], [place], [address], 01/29/2025 14:25:38 lipid panel, serum [email or web address] [place] [address] (Lab), [facility] [address], [place], [address], 03/11/2025 09:38:10 CMP, serum or plasma 2023 [facility] (Lab), [address] [place] [address] [address], [place], [address], 01/29/2025 14:36:30 Referral None recorded. Procedures None recorded. Surgeries None recorded. Imaging CT, chest, w/o contrast - Please call patinet to schedule. 2023 [facility], [address], [address], [place], [address], 09/22/2024 18:59:15 Medication Orders atorvasta tin 10 mg tablet 2023 [facility], [address] [place] [address], [address], [place], [place], [id number], 11/29/2023 10:50:59 fludrocor tisone 0.1 mg tablet 2023 [facility], [address] [place] [address], [address], [place], [place], [id number], 11/29/2023 10:50:57 Patient TargetsNo targets recorded. Patient Instructions Encounter Date Encounter Id Patient Instructions Last Modified By Organization Details Last Modified Time 04/09/2024 [id number] dementia rating scale-2* Not available 04/09/2024 12:02:38 alcohol misuse* Not available 04/09/2024 12:02:38 depression screening* Not available 04/09/2024 12:02:38 multi-dimensiona l health assessment questionnaire* Not available 04/09/2024 12:02:38 [facility]ized [facility] Plan and Screening Recommendations Advance Directives - [...] Depression Screening: Negative I have no recommendations [email or web address] Not available 04/09/2024 11:09:01 Reason for Referral None Reported. Results Created Date Observation Date Name Description Value Unit Range Abnormal Flag Note LastModifiedBy Organization Detail LastModifiedTime 05/01/20 24 04/30/2024 MAMMO , scree jo ann, digit al, bilat eral No observ ation record ed. Not Available 2023 16:14:12 09/22/20 24 09/19/2024 CT, chest , w/o contr ast No observ ation record ed. [email or web address] [facility] [address], [place], [address], 09/24/2024 15:49:43 05/05/20 25 05/04/2025 bone densi ty No observ ation record ed. Not Available 2024 10:45:54 06/03/20 25 06/03/2025 MAMMO , scree jo ann, digit al, bilat eral No observ ation record ed. Not Available 2024 08:51:08 Result Notes None recorded. Problems Name Problem SNOMED Code Status Onset Date Resolution Date Notes Provider Name and Address Organization Details Recorded Time Transient cerebral ischemia 193816608 Completed 201612/18/2018 Not Available [facility] 3 02:52:16 Osteopeni a 360840764 Active 2016 Not Available [facility] 3 02:52:16 Hyperlipi demia 37057478 Active 2016 Not Available [facility] 3 02:52:16 Dizziness 007048655 Completed 201712/18/2018 Not Available [facility] 3 02:52:16 Rhinitis 34708882 Completed 201705/24/2021 Not Available [facility] 3 02:52:17 History of chest pain 94473000574 557096 Completed 201804/27/2022 Not Available [facility] 3 02:52:16 Allergic rhinitis 61461267 Active 2018 Not Available [facility] 3 02:52:17 Nodule of lung 384999851 Active 2020 Not Available [facility] 3 02:52:17 Dizziness 634640812 Active 2021 Not Available [facility] 3 02:52:16 Solitary nodule of lung 259794361 Active 2021 Not Available [facility] 3 02:52:16 Low blood pressure 39854181 Active 2021 Not Available [facility] 3 02:52:16 Hypotensi ve episode 07256594 Active 2021 Emilia fu, JENNI lopez, [place] [facility] [facility] 4 14:49:38 Hypothyro idism 81567664 Active 2022 Emilia fu JENNI null, [facility] Active Scaler [facility] 4 14:49:36 Orthostat ic hypotensi on 77045881 Active 2022 Shirley Eli MD [address] [facility], [place] [address], [place], [address] , [facility] Jamn [facility] 3 12:40:26 Osteoporo sis 02170634 Active 2022 Nidia Herrera MD [address], [address], [place], [address] , [facility] Jamn [facility] 3 09:45:10 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 Procedure Notes None recorded. Medical Equipment None Reported. Allergies No known drug allergies Medications Name Sig Start Date Stop Date Status Note LastModified by Organization Details LastModified Time prednisone 10 mg tablet take [id number], [id number], 1x2 days 12/18 completed Not Available Not [...] Not Available No t Available amoxicillin 875 mg-luhiu m clavulanate 125 mg tablet TAKE 1 [...] Updated DateTime 4 165.1 cm 22.8 kg/m2 11755.1 5 g 97.3 [degF] 70 /min 99 % 99 % 118/70 mm[Hg] JENNI Champion [place] [facility] [place] [facility] 4 10:41:43 Date Recorded Body height Body mass index (BMI) Body weight Body temperature Heart rate Oxygen saturation Oxygen saturation in Arterial blood by Pulse oximetry Systolic And Diastolic Provider Name and Address Organization Details Last Updated DateTime 5 165.1 cm 22.1 kg/m2 88695.7 9 g 97.2 [degF] 71 /min 98 % 98 % 122/70 mm[Hg] Emilia garcia Marc [facility] Active Scaler [facility] 5 15:44:35 Date Recorded Pain severity - 0-10 verbal numeric rating [Score] - Reported Provider Name and Address Organization Details Last Updated DateTime 04/09/2024 0 Alla Osborn RN [facility] Active Scaler [facility] 04/09/2024 11:04:22 Date Recorded Body height Body mass index (BMI) Body weight Heart rate Oxygen saturation Oxygen saturation in Arterial blood by Pulse oximetry Systolic And Diastolic Provider Name and Address Organization Details Last Updated DateTime 4 165.1 cm 22.6 kg/m2 68966.5 6 g 74 /min 99 % 99 % 126/80 mm[Hg] Sarah Gonzalez [facility] Active Scaler [facility] 4 10:22:48 Date Recorded Body height Body mass index (BMI) Body weight Body temperature Heart rate Oxygen saturation Oxygen saturation in Arterial blood by Pulse oximetry Systolic And Diastolic Provider Name and Address Organization Details Last Updated DateTime 5 165.1 cm 21.6 kg/m2 50907.0 1 g 96.9 [degF] 71 /min 98 % 98 % 128/66 mm[Hg] Emilia garcia [facility] Active Scaler [facility] 5 10:50:31 Date Recorded Body height Body mass index (BMI) Body weight Body temperature Heart rate Oxygen saturation Oxygen saturation in Arterial blood by Pulse oximetry Systolic And Diastolic Provider Name and Address Organization Details Last Updated DateTime 4 165.1 cm 22.8 kg/m2 15209.1 5 g 97.6 [degF] 88 /min 98 % 98 % 122/70 mm[Hg] Emilia garcia Marc [facility] 4 15:37:55 Social History Question Answer Notes LastModified by Organizat ion Details LastModified Time Tobacco Smoking Status Former Smoker quit 20 years ago Not Available [facility] 01/03/2023 02:33:00 Do You Have An Advance Directive? No [email or web address] Information not available 04/09/2024 Are You Blind Or Do You Have Difficulty Seeing? No MIGRATION.09040 84704 Information not available 01/03/2023 What Is Your Level Of Caffeine Consumption? Occasional MIGRATION.92654 10679 Information not available 01/03/2023 How Much Tobacco Do You Chew? None MIGRATION.90399 79056 Information not available 01/03/2023 In The 14 Days Before Symptom Onset, Have You Had Close Contact With A Laboratory-confi rmed COVID-19 While That Case Was Ill? No MIGRATION.42985 57303 Information not available 01/03/2023 In The 14 Days Before Symptom Onset, Have You Had Close Contact With A Person Who Is Under Investigation For COVID-19 While That Person Was Ill? No MIGRATION.03734 30775 Information not available 01/03/2023 Are You Deaf Or Do You Have Serious Difficulty Hearing? No MIGRATION.61940 52945 Information not available 01/03/2023 What Type Of Diet Are You Following? REGULAR MIGRATION.81374 95526 Information not available 01/03/2023 Which Illicit Or Recreational Drugs Have You Used? None MIGRATION.06025 03274 Information not available 01/03/2023 Have There Been Any Changes To Your Family Or Social Situation? No [email or web address] Information not available 04/09/2024 What Is The Fluoride Status Of Your Home? Unknown [email or web address] Information not available 04/09/2024 Where Do You Live? [facility] [email or web address] Information not available 04/09/2024 Are You Able To Care For Yourself? Yes [email or web address] Information not available 04/09/2024 Are You Blind Or Do Yo Have Difficulty Seeing? No [email or web address] Information not available 04/09/2024 Are You Deaf Or Do You Have Serious Difficulty Hearing? No [email or web address] Information not available 04/09/2024 Live Alone Of With Others? With Others [email or web address] Information not available 04/09/2024 Do You Have A Medical Power Of Corporate Travel Coordinator? No [email or web address] Information not available 04/09/2024 What Was The Date Of Your Most Recent Tobacco Screening? 04/09/2024 [email or web address] Information not available 04/09/2024 Do You Have Any Pets? No [email or web address] Information not available 04/09/2024 What Is Your Relationship Status? MIGRATION.48687 36687 Information not available 01/03/2023 Do You Use Your Seat Belt Or Car Seat Routinely? Yes [email or web address] Information not available 04/09/2024 Do You Have Smoke And Carbon Monoxide Detectors In Your Home? Yes [email or web address] Information not available 04/09/2024 At What Age Did You Start Smoking Tobacco? 19 MIGRATION.88167 58962 Information not available 01/03/2023 How Much Tobacco Do You Smoke? 0.5 PPD MIGRATION.81744 18468 Information not available 01/03/2023 Have You Recently Traveled Abroad? No MIGRATION.58383 80269 Information not available 01/03/2023 Do You Have Difficulty Walking Or Climbing Stairs? No MIGRATION.81264 49485 Information not available 01/03/2023 Sex: Female Functional Status Question Answer Note LastModified by [employer] ion Details LastModified Time Do you use any illicit or recreational drugs? No MIGRATION.3289096 026 Information not available 01/03/2023 What is your level of alcohol consumption? None MIGRATION.5063453 026 Information not available 01/03/2023 Do you have access to reliable transportation? No MIGRATION.1192008 026 Information not available 01/03/2023 Are you able to walk independently without assistance or assistive devices? YESWOREST MIGRATION.3302985 026 Information not available 01/03/2023 Do you have difficulty doing errands alone? No MIGRATION.3496930 026 Information not available 01/03/2023 Are you able to care for yourself independently? Yes MIGRATION.9694919 026 Information not available 01/03/2023 Do you have difficulty dressing, bathing, grooming, or toileting? No MIGRATION.4398043 026 Information not available 01/03/2023 What is your exercise level? Occasional MIGRATION.9217593 026 Information not available 01/03/2023 Mental Status Question Answer Note LastModified by [employer] ion Details LastModified Time Do you have difficulty concentrating, remembering or making decisions? No MIGRATION.[id number] 6 Information not available 01/03/2023 Family History Relationship Description Onset Age of this Age Resolved Age Notes LastModified by Organization Details LastModified Time Father Heart disease MIGRATION.232 [id number] Not available 01/03/2023 02:43:16 Father Essential hypertension MIGRATION.016 4313337 Not available 01/03/2023 02:43:16 Brother Heart disease MIGRATION.050 1493835 Not available 01/03/2023 02:43:16 Sister Heart disease MIGRATION.114 8041097 Not available 01/03/2023 02:43:16 Sister Neoplasm of bone marrow MIGRATION.785 7077172 Not available 01/03/2023 02:43:16 Maternal Uncle Diabetes mellitus MIGRATION.373 3480202 Not available 01/03/2023 02:43:16 Medical History Condition Response OSTEOPOROSIS Y HEADACHES/MIGRAINES Y DIZZINESS Y HIGH CHOLESTEROL / HYPERLIPIDEMIA Y Gynecological HistoryNo gynecological history recorded. Obstetrics History GPAL:G 0 P 0 0 0 0 Immunizations Vaccine Type Date Status Note Provider Nam e and Address Organization Details Recorded Time COVID-19, mRNA, LNP-S, PF, 30 mcg/0.3 mL dose 1 completed Not Available [facility] 01/03/2023 03:05:59 COVID-19, mRNA, LNP-S, PF, 30 mcg/0.3 mL dose 1 completed Not Available [facility] 01/03/2023 03:05:59 COVID-19, mRNA, LNP-S, PF, 30 mcg/0.3 mL dose 1 completed Not Available [facility] 01/03/2023 03:05:59 Influenza, split virus, quadrivalent, preservative 0 completed Not Available [facility] 01/03/2023 03:06:00 Influenza, split virus, quadrivalent, preservative 9 completed Not Available [facility] 01/03/2023 03:06:00 Influenza, split virus, quadrivalent, PF 7 completed Not Available [facility] 01/03/2023 03:06:00 Influenza, adjuvanted, quadrivalent, PF 1 completed Not Available [facility] 06/02/2025 10:44:52 Influenza, adjuvanted, quadrivalent, PF 2 completed Not Available [facility] 06/02/2025 10:44:52 COVID-19, mRNA, LNP-S, bivalent, PF, 30 mcg/0.3 mL dose 2 completed Not Available [facility] 06/02/2025 10:44:52 Influenza, adjuvanted, quadrivalent, PF 3 completed Not Available [facility] 06/02/2025 10:44:52 Influenza, high-dose, trivalent, PF 4 completed Not Available [facility] 06/02/2025 10:44:52 Past Encounters Encounter ID Performer Location Encounter Start Date Encounter Closed Date Diagnosis/Indication Diagnosis SNOMED-CT Code Diagnosis ICD10 Code Diagnosis IMO Codes Diagnosis Note [id number] Nidia Herrera MD S[facility] [address] [facility] [place] [address] 01/14/2021 00:00:00 01/14/2021 12:39:50 [id number] MD RODY Mchugh IGRATION_ DEFAULT_1 _1 , 01/20/2021 00:00:00 01/20/2021 12:08:36 [id number] MD RODY Mchugh IGRATION_ DEFAULT_1 _1 , 04/28/2021 00:00:00 04/28/2021 13:40:34 [id number] Jose Teran MD [facility]_[address] [address] 05/30/2021 00:00:00 05/30/2021 10:34:34 [id number] Nidia Herrera MD S_[facility] [address] [facility] [place] [address] 06/17/2021 00:00:00 06/17/2021 13:10:02 [id number] MD RODY Mchugh IGRATION_ DEFAULT_1 _1 , 07/28/2021 00:00:00 07/28/2021 13:48:02 [id number] Jose Teran MD [facility]_[address] [address] 10/31/2021 00:00:00 10/31/2021 12:02:25 [id number] Shirley Eli MD _[facility]_M IGRATION_ DEFAULT_1 _1 , 11/24/2021 00:00:00 11/24/2021 11:09:04 [id number] Nidia Herrera MD [facility] [address] [facility] [place] [address] 04/27/2022 00:00:00 04/27/2022 14:41:18 [id number] Jose Teran MD S_[facility] [address] [address] 06/06/2022 00:00:00 06/06/2022 15:12:18 [id number] Shirley Eli MD [facility] [place] [address] [place] [address] 08/25/2022 00:00:00 08/25/2022 21:01:21 [id number] Jose Teran MD [facility] [place] [address] [address] 11/07/2022 00:00:00 11/07/2022 11:24:23 [id number] Shirley Eli MD [facility] [place] [address] [place] [address] 02/20/2023 12:15:46 02/20/2023 12:44:41 Hypothyroidism 80663158 E03.9 TSH borderline with normal free hormones- [...] on. Screening for malignant neoplasm of colon 221754334 Z12.11 refer to gastroente rology as patient due for screening scan. Orthostati c hypotension 83978774 I95.1 Continue on florinef 0.1 mg up [...] she chooses to go outside of the [facility] system to obtain labwork she was [...] in her case. She voiced understand ing. [id number] Nidia Herrera MD [facility] [address] [place] [address] 04/30/2023 11:35:43 04/30/2023 12:18:33 Hyperlipidemia 29231214 E78.5 on meds Osteopenia 300754370 M85 .80 on vit D Low blood pressure 39658 003 I95.9 Florinef maintainin g it, seeing endo Allergic rhinitis 511696 04 J30.9 meds help Solitary n odule of lung 622869334 R91.1 needs f/u CT chest Dizziness 094333536 R42 seeing chiropract or Adult heal th examination 769990494 Z00.00 Colonoscop y- >10 yrs ago, concha ordered it, getting it in 2 weeksDaleCarla brushki - 2018 - NEGMammogr am- ex a- 03/2023FLU - 2022COVID- 01/31-, 02/28/2021 History of chest pain 16 53191194 5219221 Z87.898 tress test, Holter, sleep study neg in 2018 Hypothyroidism 40299754 E03.9 on meds from endo [id number] Shirley Eli MD [facility] [place] [address] [place] [address] 08/07/2023 11:16:46 08/07/2023 11:47:17 Hypothyroidism 40648858 E03.9 TSH and FT4 in ideal range- [...] and reduce inflammati on. Orthostati c hypotension 30867960 I95.1 Continue on florinef 0.1 mg up [...] answered and refills necessary at visit today. [id number] Nidia Herrera MD Luis Carlos_[facility] Med [address] [facility] [place] [address] 11/29/2023 10:21:38 11/29/2023 11:04:29 Hyperlipidemia 13447781 E78.5 on meds Osteopenia 598788017 M85 .80 on vit D History of chest pain 16 95732292 2871917 Z87.898 stress test, Holter, sleep study neg in 2018 Low blood pressure 31335 003 I95.9 Florinef maintainin g it, Allergic rhinitis 835347 04 J30.9 meds help Solitary n odule of lung 836322447 R91.1 CT chest 05/27, 6 mm nodule Dizziness 772079832 R42 better Adult heal th examination 204241660 Z00.00 Colonoscop y- >10 yrs ago, aware that it is due, will let me know when wantsColo- guard - 2018 - NEGMammogr am- 3Dex a- 03/2023FLU - 3COV ID- 01/31-, 02/28/2021 Hypothyroidism 57800493 E03.9 on meds Orthostati c hypotension 44343483 I95.1 stable with meds [id number] Nidia Herrera MD [facility] Internal Med [facility] [address] [facility] [place] [address] 04/09/2024 10:16:22 04/09/2024 11:04:35 Hyperlipidemia 82716944 E78.5 on meds History of chest pain 16 64777733 3861848 Z87.898 stress test, Holter, sleep study neg in 2018 Allergic rhinitis 891486 04 J30.9 meds help Solitary n odule of lung 554687943 R91.1 CT chest 05/27, 6 mm nodule, order next time Dizziness 763824645 R42 advised to see neurology at [facility] Adult heal th examination 903706808 Z00.00 Colonoscop y- >10 yrs ago, aware that it is due, will let me know when wantsColo- guard - 2017 - NEGMammogr am- 03/2023- ScheduledP neumovax- wants to waitDexa- 03/2023FLU - OV ID- , 02/28/2021 Hypothyroidism 11755326 E03.9 on meds , TO SEE NEW ENDO Orthostati c hypotension 88505477 I95.1 stable with meds Screening for disorder 657039035 Z13.9 [id number] Nidia Herrera MD [facility] Internal Med [address] [facility] [place] [address] 08/27/2024 15:15:41 08/27/2024 16:37:56 Hyperlipidemia 19539587 E78.5 on meds History of chest pain 16 69928041 2544375 Z87.898 stress test, Holter, sleep study neg in 2018 Allergic rhinitis 262903 04 J30.9 meds help Solitary n odule of lung 400615461 R91.1 CT chest 05/27, 6 mm nodule, Dizziness 428864253 R42 to see neurology at [facility], STILL HAS MILD SYMPTOMS Adult heal th examination 848307346 Z00.00 Colonoscop y- >10 yrs ago, aware that it is due, will let me know when wantsColo- guard - 2017 - NEGMammogr am- 04/30/24Pn eumovax- wants to waitDexa- 03/2023FLU - 08/26/2024 ([facility] )COVID- , 02/28/2021 PH[employer], FORMS SIGNED Hypothyroidism 64806377 E03.9 on meds , Orthostati c hypotension 45542241 I95.1 stable with meds [id number] Nidia Herrera MD [facility] Internal Med [facility] [address] [facility] [place] [address] 01/28/2025 15:24:10 01/28/2025 16:37:24 Hyperlipidemia 26763812 E78.5 under control History of chest pain 16 17391320 5876969 Z87.898 stress test, Holter, sleep study neg in 2018 Allergic rhinitis 954052 04 J30.9 meds help Solitary n odule of lung 674799492 R91.1 stable Dizziness 053707175 R42 to see neurology at [facility], STILL HAS MILD SYMPTOMS Adult heal th examination 763326197 Z00.00 Colonoscop y- >10 yrs ago, aware that it is due, will let me know when wantsColo- guard - 2017 - NEGMammogr am- 04/30/24Pn eumovax- DOES NOT WANTDexa- 03/2023FLU - 08/26/2024 ([facility] )COVID- 01/31-, 02/28/2021 PHYSICAL DONE FOR [employer], FORMS SIGNED Hypothyroidism 74205099 E03.9 on meds , Orthostati c hypotension 85590793 I95.1 stable with meds [id number] Nidia Herrera MD [facility] [address] [place] [address] 06/02/2025 10:42:37 06/02/2025 11:25:52 Hyperlipidemia 05782616 E78.5 under control History of chest pain 16 21883607 4256821 Z87.898 stress test, Holter, sleep study neg in 2018, no more symptoms Allergic rhinitis 868672 04 J30.9 meds help Solitary n odule of lung 872282557 R91.1 CT in 09/28 Dizziness 352055343 R42 not many symptoms any more Adult heal th examination 363380949 Z00.00 Colonoscop y- >10 yrs ago, aware that it is due, will let me know when wantsColo- guard - 2017 - NEGMammogr am- 04/30/24- Having it today 06/02/25Pne umovax- DOES NOT WANTDexa- 05/04/25FLU - 08/26/2024 ([facility] )COVID- , 02/28/2021 PHYSICAL DONE FOR [employer], FORMS SIGNED Hypothyroidism 39150597 E03.9 on meds Orthostati c hypotension 76648195 I95.1 stable with meds Health Concerns Section Related Observation LastModified by Organization Detai ls LastModified Time None Recorded Concern Status LastModified by Organization Details LastModified Time None Recorded Advance Directives Directive N: Payers Insurance Date Sequence Insurance Name Policy Number Policy Hewitt Covered Member ID Hewitt Member ID Guarantor Name 05/30/2025 1 [facility] (MEDICARE REPLACEMENT/A DVANTAGE - HMO) [id number] Bisi Kuhn [id number] Bisi Kuhn Notes Date Note Type Note Provider Name and Address Organization Details Recorded Time 11/29/2023 text/html She is here today for her routine follow up. Hyperlipidemia- on [...] been seeing a chiropractor Nidia Herrera MD [address] [place] [address], [place] [address], [place], [address], [facility] [facility] 11/29/2023 10:55:02 04/09/2024 text/html She is here today for her routine follow up. Hyperlipidemia- on [...] seeing a chiropractor Nidia Herrera MD [address], [place], [address], [employer] 04/09/2024 12:02:43 08/27/2024 text/html She is here today for her routine follow up. NEEDS PHYSICAL [...] seeing a chiropractor Nidia Herrera MD [address], [place], [address], [employer] 08/27/2024 16:23:06 01/28/2025 text/html She is here today for her routine follow up.PT IS NOT FASTING ( [facility] ) Hyperlipidemia- on med and under control, labs good3/Meds- Atorvastatin 10 mg qd Rhinitis- meds helptakes [...] Herrera MD [address], [place], [address], [facility] [employer] [facility] [place] 01/28/2025 16:27:05 06/02/2025 text/html She is here today for her routine follow up. PT IS NOT FASTING ( [facility] ) Hyperlipidemia- on med and under control, labs good01/27Meds- Atorvastatin 10 mg qd Rhinitis- meds helptakes Singular and Flonase, Osteoporosis- OTC calcium + D, dexa - Ibandronate 150 mg once a month, from gyne Orthostatic hypotension/Low BP- has been checking bp at home better, no symptomsMeds- Fludrocortisone 0.1 mg, was seeing endo dr eli, seeing another endo, Dr Barker Hypothyroidism- labs good [place] 01/27Meds- Unithroid 25mcg daily Pulm nodule- Last CT chest was 09/19/24 (6-12mo follow up) , PET 10/25, no abn uptake, PFT nl she had dizziness kind of feeling some pressure in the head in certain position, seen dr Andrews, had MRI and CT of the brain in 2019 , WAS seeing a chiropractor Nidia Herrera MD [address], [place], [address], [employer] 06/02/2025 11:08:33 OBGyn Episode No OBEpisode recorded.
[2025-08-04 10:09] LABS: Calcium, Urine 7.6 mg/dL (Not Estab.)
== END 2025-08-01 07:09 | disposition home or self-care (01) ==
PROVIDERS: PCP Internal Medicine; Visit Provider Internal Medicine Endocrinology, Diabetes & Metabolism
DX: R79.89 Other specified abnormal findings of blood chemistry (principal)
CPT/HCPCS: 82340

== ENCOUNTER 2025-10-21 07:06 | Outpatient (CLI) | payer MEDICARE, SELFPAY ==
--- OUTSIDE RECORDS SUMMARY | 2025-10-21 07:11 | XMS_ITS | Continuity of Care Document ---
Author Organization ID - [facility], [facility] Internal [facility] Address [address] [place] [address] Care Team Providers Care Grinder Name Role Phone TYSHAWN BAINS Primary Care Provider Assessment No assessment recorded. Plan of Treatment Reminders Order Date Submit Date Provider Last Modified By Organization Details Last Modified Time Details Appointments Any 15 026 03:00PM Tyshawn Bains MD Not available Not available [...] Abnormal Flag Note LastModifiedBy Organization Detail LastModifiedTime Result Notes None recorded. Problems Name Problem SNOMED Code Status Onset Date Resolution Date Notes Provider Name and Address Organization Details Recorded Time Transient cerebral ischemia 975719157 Completed 201612/18/2018 Not Available [facility] 3 02:52:16 Osteopeni a 170387122 Active 2016 Not Available [facility] 3 02:52:16 Hyperlipi demia 89059517 Active 2016 Not Available [facility] 3 02:52:16 Dizziness 487224832 Completed 201712/18/2018 Not Available [facility] 3 02:52:16 Rhinitis 17385916 Completed 201705/24/2021 Not Available [facility] 3 02:52:17 History of chest pain 39186343960 051112 Completed 201804/27/2022 Not Available [facility] 3 02:52:16 Allergic rhinitis 21649495 Active 2018 Not Available [facility] 3 02:52:17 Nodule of lung 551456386 Active 2020 Not Available [facility] 3 02:52:17 Dizziness 613042677 Active 2021 Not Available [facility] 3 02:52:16 Solitary nodule of lung 158504289 Active 2021 Not Available [facility] 3 02:52:16 Low blood pressure 57864820 Active 2021 Not Available [facility] 3 02:52:16 Hypotensi ve episode 03810057 Active 2021 Emilia fu RMA null, ID - [facility] 4 14:49:38 Hypothyro idism 21760643 Active 2022 Emilia fu RMMarc null, [facility] 4 14:49:36 Orthostat ic hypotensi on 34447203 Active 2022 Shirley Eli MD [address], [address] , [facility] 3 12:40:26 Osteoporo sis 39399496 Active 2022 Tyshawn Bains MD [address], [address] , [facility] 3 09:45:10 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 Procedure Notes None recorded. Medical Equipment None Reported. Allergies No known drug allergies Medications Name Sig Start Date Stop Date Status Note LastModified by Organization Details LastModified Time prednisone 10 mg tablet take 3q0nxam, 8p3psrv, 1x2 days 12/18 completed Not Available Not Available Not Available atorvastati n 10 mg tablet TAKE 1 TABLET BY MOUTH DAILY 2024 active CHANDLER: - NOV: 09/29 Not Available Not Available Not Available prednisone [...] weight Body temperature Heart rate Oxygen saturation Systolic And Diastolic Provider Name and Address Organization Details Last Updated DateTime 5 165.1 cm 21.5 kg/m2 10529.4 2 g 97 [degF] 74 /min 99 % 134/66 mm[Hg] JENNI Champion [facility] [employer] 5 15:15:33 Social History Question Answer Notes LastModified by Organizat ion Details LastModified Time Tobacco Smoking Status Former Smoker quit 20 years ago Not Available [facility] 01/03/2023 02:33:00 Do You Have An Advance Directive? No [email or web address] Information not available 04/09/2024 Are You Blind Or Do You Have Difficulty Seeing? No MIGRATION.[id number] Information not available 01/03/2023 What Is Your Level Of Caffeine Consumption? Occasional MIGRATION.07712 28149 Information not available 01/03/2023 How Much Tobacco Do You Chew? None MIGRATION.71864 33370 Information not available 01/03/2023 In The 14 Days Before Symptom Onset, Have You Had Close Contact With A Laboratory-confi rmed COVID-19 While That Case Was Ill? No MIGRATION.44848 75431 Information not available 01/03/2023 In The 14 Days Before Symptom Onset, Have You Had Close Contact With A Person Who Is Under Investigation For COVID-19 While That Person Was Ill? No MIGRATION.95576 50884 Information not available 01/03/2023 Are You Deaf Or Do You Have Serious Difficulty Hearing? No MIGRATION.41455 46686 Information not available 01/03/2023 What Type Of Diet Are You Following? REGULAR MIGRATION.93774 45459 Information not available 01/03/2023 Which Illicit Or Recreational Drugs Have You Used? None MIGRATION.38386 69724 Information not available 01/03/2023 Have There Been Any Changes To Your Family Or Social Situation? No [email or web address] Information not available 04/09/2024 What Is The Fluoride Status Of Your Home? Unknown [email or web address] Information not available 04/09/2024 Where Do You Live? [facility] [email or web address] Information not available 04/09/2024 Are You Able To Care For Yourself? Yes [email or web address] Information not available 04/09/2024 Are You Blind Or Do Yo Have Difficulty Seeing? No [email or web address] Information not available 04/09/2024 Are You Deaf Or Do You Have Serious Difficulty Hearing? No [email or web address] Information not available 04/09/2024 Live Alone Of With Others? With Others Information not available 04/09/2024 Do You Have A Medical Power Of Front Tender? No [email or web address] Information not available 04/09/2024 What Was The Date Of Your Most Recent Tobacco Screening? 04/09/2024 [email or web address] Information not available 04/09/2024 Do You Have Any Pets? No [email or web address] Information not available 04/09/2024 What Is Your Relationship Status? MIGRATION.48984 60517 Information not available 01/03/2023 Do You Use Your Seat Belt Or Car Seat Routinely? Yes [email or web address] Information not available 04/09/2024 Do You Have Smoke And Carbon Monoxide Detectors In Your Home? Yes [email or web address] Information not available 04/09/2024 At What Age Did You Start Smoking Tobacco? 19 MIGRATION.96332 27865 Information not available 01/03/2023 How Much Tobacco Do You Smoke? 0.5 PPD MIGRATION.60651 68586 Information not available 01/03/2023 Have You Recently Traveled Abroad? No MIGRATION.25122 34746 Information not available 01/03/2023 Do You Have Difficulty Walking Or Climbing Stairs? No MIGRATION.87992 15271 Information not available 01/03/2023 Sex: Female Functional Status Question Answer Note LastModified by Organizat ion Details LastModified Time Do you use any illicit or recreational drugs? No MIGRATION.0044167 026 Information not available 01/03/2023 What is your level of alcohol consumption? None MIGRATION.8184506 026 Information not available 01/03/2023 Do you have transportation difficulties? No MIGRATION.4931390 026 Information not available 01/03/2023 Are you able to walk independently without assistance or assistive devices? YESWOREST MIGRATION.3814575 026 Information not available 01/03/2023 Do you have difficulty doing errands alone? No MIGRATION.1309508 026 Information not available 01/03/2023 Are you able to care for yourself independently? Yes MIGRATION.2634924 026 Information not available 01/03/2023 Do you have difficulty dressing, bathing, grooming, or toileting? No MIGRATION.9216200 026 Information not available 01/03/2023 What is your exercise level? Occasional MIGRATION.7464341 026 Information not available 01/03/2023 Mental Status Question Answer Note LastModified by Organizat ion Details LastModified Time Do you have difficulty concentrating, remembering or making decisions? No MIGRATION.[id number] 6 Information not available 01/03/2023 Family History Relationship Description Onset Age of this Age Resolved Age Notes LastModified by Organization Details LastModified Time Father Heart disease MIGRATION.187 [id number] Not available 01/03/2023 02:43:16 Father Essential hypertension MIGRATION.190 [id number] Not available 01/03/2023 02:43:16 Brother Heart disease MIGRATION.822 [id number] Not available 01/03/2023 02:43:16 Sister Heart disease MIGRATION.109 [id number] Not available 01/03/2023 02:43:16 Sister Neoplasm of bone marrow MIGRATION.847 [id number] Not available 01/03/2023 02:43:16 Maternal Uncle Diabetes mellitus MIGRATION.505 0768019 Not available 01/03/2023 02:43:16 Medical History Condition Response OSTEOPOROSIS Y HEADACHES/MIGRAINES Y DIZZINESS Y HIGH CHOLESTEROL / HYPERLIPIDEMIA Y Gynecological HistoryNo gynecological history recorded. Obstetrics History GPAL:G 0 P 0 0 0 0 Immunizations Vaccine Type Date Status Note Provider Nam e and Address Organization Details Recorded Time COVID-19, mRNA, LNP-S, PF, 30 mcg/0.3 mL dose completed Not Available [facility] 01/03/2023 03:05:59 COVID-19, mRNA, LNP-S, PF, 30 mcg/0.3 mL dose 1 completed Not Available [facility] 01/03/2023 03:05:59 COVID-19, mRNA, LNP-S, PF, 30 mcg/0.3 mL dose 1 completed Not Available [facility] 01/03/2023 03:05:59 Influenza, split virus, quadrivalent, preservative 0 completed Not Available [facility] 01/03/2023 03:06:00 Influenza, split virus, quadrivalent, preservative 9 completed Not Available [facility] 01/03/2023 03:06:00 Influenza, split virus, quadrivalent, PF 7 completed Not Available [facility] 01/03/2023 03:06:00 Influenza, adjuvanted, quadrivalent, PF 1 completed Not Available [facility] 09/29/2025 14:57:49 Influenza, adjuvanted, quadrivalent, PF 2 completed Not Available [facility] 09/29/2025 14:57:49 COVID-19, mRNA, LNP-S, bivalent, PF, 30 mcg/0.3 mL dose 2 completed Not Available [facility] 09/29/2025 14:57:49 Influenza, adjuvanted, quadrivalent, PF 3 completed Not Available [facility] 09/29/2025 14:57:49 Influenza, high-dose, trivalent, PF 4 completed Not Available [facility] 09/29/2025 14:57:49 Past Encounters Encounter ID Performer Location Encounter Start Date Encounter Closed Date Diagnosis/Indication Diagnosis SNOMED-CT Code Diagnosis ICD10 Code Diagnosis IMO Codes Diagnosis Note [id number] Tyshawn Bains MD [facility] [address] [place] [address] 09/29/2025 14:56:02 09/29/2025 15:58:18 Hyperlipidemia 71896102 E78.5 under control History of chest pain 16 18593701 7269055 Z87.898 stress test, Holter, sleep study neg in 2018, no more symptoms Allergic rhinitis 014188 04 J30.9 meds help Solitary n odule of lung 038513590 R91.1 CT in 09/28 Dizziness 013471907 R42 unchanged Hypothyroidism 59902873 E03.9 on meds Orthostati c hypotension 04233378 I95.1 stable with meds Adult heal th examination 500660982 Z00.00 Colonoscop y- >10 yrs ago, aware that it is due, will let me know when wants, getting cologuardC olo-guard - 2018 - NEGMammogr am- 04/30/24- exa - 05/04/25FLU - 08/26/2024 ([facility] )COVID- 01/31-, 02/28/2021 Counseling procedure with explicit context 461302775 Z71.85 77003164 vaccinatio ns discussed Health Concerns Section Related Observation LastModified by Organization Detai ls LastModified Time None Recorded Concern Status LastModified by Organization Details LastModified Time None Recorded Payers Encounter Date Sequence Insurance Name Policy Number Policy Hewitt Covered Member ID Hewitt Member ID Guarantor Name 09/29/[address] [facility] (MEDICARE REPLACEMENT/A DVANTAGE - HMO) [id number] Bsii Kuhn [id number] Bisi Kuhn Notes Date Note Type Note Provider Name and Address Organization Details Recorded Time 09/29/2025 text/html She is here today for her routine follow up. PT IS NOT FASTING ( [facility] ) Hyperlipidemia- on med and under control, labs good09/29Meds- Atorvastatin 10 mg qd Rhinitis- meds helptakes Singular and Flonase, Osteoporosis- OTC calcium + D, dexa 04/29Med- Ibandronate 150 mg once a month, from [...] brain in 2019 , WAS seeing a chiropractor, has not chnaged Tyshawn Bains MD [address], [place], [address], [facility] 09/29/2025 15:48:17 OBGyn Episode No OBEpisode recorded.
--- OUTSIDE RECORDS SUMMARY | 2025-10-21 07:11 | XMS_ITS | Data Portability ---
Author Organization [place] [facility] [facility], Main Office Address [address] [place] [address] Care Team Providers Care Dialysis Biomed Technician Name Role Phone NIDIA BAINS Primary Care Provider [phone] Assessment No assessment recorded. Plan of Treatment Reminders Order Date Submit Date Provider Last Modified By Organization Details Last Modified Time Details Appointments Any 15 2025 03:00P M Nidia Bains MD Not available Not available Not available Lab TSH, serum or plasma [address] (Lab), [address] [place] [address], [id number], 09/10/2025 09:36:05 T4, free, serum [address] (Lab), [address] [place] [address], [id number], 09/10/2025 09:36:06 T3, free, serum or plasma [address] (Lab), [address] [place] [address], [address], 09/10/2025 09:36:06 TSH, serum or plasma [address] (Lab), [address] [place] [address], [address], 03/11/2025 09:38:11 T4, free, serum [address] (Lab), [address] [place] [address], [address], 03/11/2025 09:38:11 T3, free, serum or plasma 2023 024 [facility] (Lab), [facility] [address], [place], [address], 01/29/2025 14:25:38 lipid panel, serum [email or web address] [place] [address] (Lab), [facility] [address], [place], [address], 03/11/2025 09:38:10 CMP, serum or plasma 2023 [facility] (Lab), [facility] [address], [place], [address], 01/29/2025 14:36:30 Referral None recorded. Procedures None recorded. Surgeries None recorded. Imaging CT, chest, w/o contrast - Please call patinet to schedule. 2023 [facility], [address], [place], [address], 09/22/2024 18:59:15 Medication Orders None recorded. Patient TargetsNo targets recorded. Patient Instructions Encounter Date Encounter Id Patient Instructions Last Modified By Organization Details Last Modified Time 04/09/2024 [id number] dementia rating scale-2* Not available 04/09/2024 12:02:38 alcohol misuse* Not available 04/09/2024 12:02:38 depression screening* Not available 04/09/2024 12:02:38 multi-dimensiona l health assessment questionnaire* Not available 04/09/2024 12:02:38 Personalized [facility] Plan and Screening Recommendations Advance Directives - [...] Depression Screening: Negative I have no recommendations [email or web address] Not available 04/09/2024 11:09:01 Reason for Referral None Reported. Results Created Date Observation Date Name Description Value Unit Range Abnormal Flag Note LastModifiedBy Organization Detail LastModifiedTime 05/01/20 24 04/30/2024 MAMMO , scree jo ann, digit al, bilat eral No observ ation record ed. Not Available 2023 16:14:12 09/22/20 24 09/19/2024 CT, chest , w/o contr ast No observ ation record ed. [email or web address] [address], [place], [address], 09/24/2024 15:49:43 05/05/20 25 05/04/2025 bone densi [...] Organization Details Recorded Time Transient cerebral ischemia 280358286 Completed 201612/18/2018 Not Available [facility] 3 02:52:16 Osteopeni a 280038647 Active 2016 Not Available [facility] 3 02:52:16 Hyperlipi demia 32174019 Active 2016 Not Available [facility] 3 02:52:16 Dizziness 534485272 Completed 201712/18/2018 Not Available [facility] 3 02:52:16 Rhinitis 72853758 Completed 201705/24/2021 Not Available [facility] 3 02:52:17 History of chest pain 09864590615 783295 Completed 201804/27/2022 Not Available [facility] 3 02:52:16 Allergic rhinitis 27237407 Active 2018 Not Available [facility] 3 02:52:17 Nodule of lung 329533600 Active 2020 Not Available [facility] 3 02:52:17 Dizziness 885189162 Active 2021 Not Available [facility] 3 02:52:16 Solitary nodule of lung 975251022 Active 2021 Not Available [facility] 3 02:52:16 Low blood pressure 18317578 Active 2021 Not Available [facility] 3 02:52:16 Hypotensi ve episode 91072925 Active 2021 Emilia fu RMMarc null, [employer] [facility] 4 14:49:38 Hypothyro idism 19158772 Active 2022 Emilia fu RMA null, [employer] [facility] 4 14:49:36 Orthostat ic hypotensi on 96099783 Active 2022 Shirley Eli MD [address], [address] , [facility] [employer] [facility] 3 12:40:26 Osteoporo sis 61580084 Active 2022 Nidia Bains MD [address], [address], [place], [address] , [place] [facility] [employer] [facility] 3 09:45:10 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 Procedure Notes None recorded. Medical Equipment None Reported. Allergies No known drug allergies Medications Name Sig Start Date Stop Date Status Note LastModified by Organization Details LastModified Time prednisone 10 mg tablet take 4g4ynma, 4r9yxoa, 1x2 days 12/18 completed Not Available Not [...] Updated DateTime 5 165.1 cm 22.1 kg/m2 53029.7 9 g 97.2 [degF] 71 /min 98 % 122/70 mm[Hg] Emilia garcia Marc [facility] [employer] [facility] 5 15:44:35 Date Recorded Pain severity - 0-10 verbal numeric rating [Score] - Reported Provider Name and Address Organization Details Last Updated DateTime 04/09/2024 0 Alla Osborn RN [facility] Definition 6 [facility] 04/09/2024 11:04:22 Date Recorded Body height Body mass index (BMI) Body weight Heart rate Oxygen saturation Systolic And Diastolic Provider Name and Address Organization Details Last Updated DateTime 4 165.1 cm 22.6 kg/m2 50940.5 6 g 74 /min 99 % 126/80 mm[Hg] Sarah Gonzalez [facility] [employer] [facility] 4 10:22:48 Date Recorded Body height Body mass index (BMI) Body weight Body temperature Heart rate Oxygen saturation Systolic And Diastolic Provider Name and Address Organization Details Last Updated DateTime 5 165.1 cm 21.6 kg/m2 59408.0 1 g 96.9 [degF] 71 /min 98 % 128/66 mm[Hg] Emilia Queenlesia radha [facility] [employer] [facility] 5 10:50:31 Date Recorded Body height Body mass index (BMI) Body weight Body temperature Heart rate Oxygen saturation Systolic And Diastolic Provider Name and Address Organization Details Last Updated DateTime 4 165.1 cm 22.8 kg/m2 09903.1 5 g 97.6 [degF] 88 /min 98 % 122/70 mm[Hg] Emilia Navarro radha [facility] [employer] 4 15:37:55 Date Recorded Body height Body mass index (BMI) Body weight Body temperature Heart rate Oxygen saturation Systolic And Diastolic Provider Name and Address Organization Details Last Updated DateTime 5 165.1 cm 21.5 kg/m2 41454.4 2 g 97 [degF] 74 /min 99 % 134/66 mm[Hg] Emilia Bernicelesia radha [facility] [employer] [facility] [employer] [facility] 5 15:15:33 Social History Question Answer Notes LastModified by Organizat ion Details LastModified Time Tobacco Smoking Status Former Smoker quit 20 years ago Not Available [facility] 01/03/2023 02:33:00 Do You Have An Advance Directive? No [email or web address] Information not available 04/09/2024 Are You Blind Or Do You Have Difficulty Seeing? No MIGRATION.41201 00409 Information not available 01/03/2023 What Is Your Level Of Caffeine Consumption? Occasional MIGRATION.59020 80031 Information not available 01/03/2023 How Much Tobacco Do You Chew? None MIGRATION.31427 91208 Information not available 01/03/2023 In The 14 Days Before Symptom Onset, Have You Had Close Contact With A Laboratory-confi rmed COVID-19 While That Case Was Ill? No MIGRATION.00575 97764 Information not available 01/03/2023 In The 14 Days Before Symptom Onset, Have You Had Close Contact With A Person Who Is Under Investigation For COVID-19 While That Person Was Ill? No MIGRATION.64970 04359 Information not available 01/03/2023 Are You Deaf Or Do You Have Serious Difficulty Hearing? No MIGRATION.94319 96023 Information not available 01/03/2023 What Type Of Diet Are You Following? REGULAR MIGRATION.00403 33996 Information not available 01/03/2023 Which Illicit Or Recreational Drugs Have You Used? None MIGRATION.74124 62759 Information not available 01/03/2023 Have There Been Any Changes To Your Family Or Social Situation? No [email or web address] Information not available 04/09/2024 What Is The Fluoride Status Of Your Home? Unknown [email or web address] Information not available 04/09/2024 Where Do You Live? [facility] [email or web address] Information not available 04/09/2024 Are You Able To Care For Yourself? Yes [email or web address] Information not available 04/09/2024 Are You Blind Or Do Yo Have Difficulty Seeing? No [email or web address] Information not available 04/09/2024 Are You Deaf Or Do You Have Serious Difficulty Hearing? No [email or web address] Information not available 04/09/2024 Live Alone Of With Others? With Others [email or web address] Information not available 04/09/2024 Do You Have A Medical Power Of Musical Therapist? No Information not available 04/09/2024 What Was The Date Of Your Most Recent Tobacco Screening? 04/09/2024 [email or web address] Information not available 04/09/2024 Do You Have Any Pets? No [email or web address] Information not available 04/09/2024 What Is Your Relationship Status? MIGRATION.14687 53710 Information not available 01/03/2023 Do You Use Your Seat Belt Or Car Seat Routinely? Yes [email or web address] Information not available 04/09/2024 Do You Have Smoke And Carbon Monoxide Detectors In Your Home? Yes [email or web address] Information not available 04/09/2024 At What Age Did You Start Smoking Tobacco? 19 MIGRATION.79284 60476 Information not available 01/03/2023 How Much Tobacco Do You Smoke? 0.5 PPD MIGRATION.66283 10216 Information not available 01/03/2023 Have You Recently Traveled Abroad? No MIGRATION.53780 95785 Information not available 01/03/2023 Do You Have Difficulty Walking Or Climbing Stairs? No MIGRATION.63523 44943 Information not available 01/03/2023 Sex: Female Functional Status Question Answer Note LastModified by Organizat ion Details LastModified Time Do you use any illicit or recreational drugs? No MIGRATION.1341135 026 Information not available 01/03/2023 What is your level of alcohol consumption? None MIGRATION.2519746 026 Information not available 01/03/2023 Do you have transportation difficulties? No MIGRATION.6353153 026 Information not available 01/03/2023 Are you able to walk independently without assistance or assistive devices? YESWOREST MIGRATION.5233981 026 Information not available 01/03/2023 Do you have difficulty doing errands alone? No MIGRATION.4109380 026 Information not available 01/03/2023 Are you able to care for yourself independently? Yes MIGRATION.6098867 026 Information not available 01/03/2023 Do you have difficulty dressing, bathing, grooming, or toileting? No MIGRATION.7876015 026 Information not available 01/03/2023 What is your exercise level? Occasional MIGRATION.2623339 026 Information not available 01/03/2023 Mental Status Question Answer Note LastModified by Organizat ion Details LastModified Time Do you have difficulty concentrating, remembering or making decisions? No MIGRATION.[id number] 6 Information not available 01/03/2023 Family History Relationship Description Onset Age of this Age Resolved Age Notes LastModified by Organization Details LastModified Time Father Heart disease MIGRATION.146 [id number] Not available 01/03/2023 02:43:16 Father Essential hypertension MIGRATION.243 0715023 Not available 01/03/2023 02:43:16 Brother Heart disease MIGRATION.926 1834134 Not available 01/03/2023 02:43:16 Sister Heart disease MIGRATION.614 7737098 Not available 01/03/2023 02:43:16 Sister Neoplasm of bone marrow MIGRATION.756 7835688 Not available 01/03/2023 02:43:16 Maternal Uncle Diabetes mellitus MIGRATION.890 6334021 Not available 01/03/2023 02:43:16 Medical History Condition Response OSTEOPOROSIS Y HEADACHES/MIGRAINES Y DIZZINESS Y HIGH CHOLESTEROL / HYPERLIPIDEMIA Y Gynecological HistoryNo gynecological history recorded. Obstetrics History GPAL:G 0 P 0 0 0 0 Immunizations Vaccine Type Date Status Note Provider Nam e and Address Organization Details Recorded Time COVID-19, mRNA, LNP-S, PF, 30 mcg/0.3 mL dose 1 completed Not Available [facility] 01/03/2023 03:05:59 COVID-19, mRNA, LNP-S, PF, 30 mcg/0.3 mL dose 1 completed Not Available [facility] 01/03/2023 03:05:59 COVID-19, mRNA, LNP-S, PF, 30 mcg/0.3 mL dose 1 completed Not Available [facility] 01/03/2023 03:05:59 Influenza, split virus, quadrivalent, preservative 0 completed Not Available [facility] 01/03/2023 03:06:00 Influenza, split virus, quadrivalent, preservative 9 completed Not Available [facility] 01/03/2023 03:06:00 Influenza, split virus, quadrivalent, PF 7 completed Not Available [facility] 01/03/2023 03:06:00 Influenza, adjuvanted, quadrivalent, PF 1 completed Not Available [facility] 09/29/2025 14:57:49 Influenza, adjuvanted, quadrivalent, PF 2 completed Not Available [facility] 09/29/2025 14:57:49 COVID-19, mRNA, LNP-S, bivalent, PF, 30 mcg/0.3 mL dose 2 completed Not Available [facility] 09/29/2025 14:57:49 Influenza, adjuvanted, quadrivalent, PF 3 completed Not Available [facility] 09/29/2025 14:57:49 Influenza, high-dose, trivalent, PF 4 completed Not Available [facility] 09/29/2025 14:57:49 Past Encounters Encounter ID Performer Location Encounter Start Date Encounter Closed Date Diagnosis/Indication Diagnosis SNOMED-CT Code Diagnosis ICD10 Code Diagnosis IMO Codes Diagnosis Note [id number] Nidia Bains MD [facility] [address] [place] [address] 01/14/2021 00:00:00 01/14/2021 12:39:50 [id number] MD RODY Mchugh IGRATION_ DEFAULT_1 _1 , 01/20/2021 00:00:00 01/20/2021 12:08:36 [id number] MD RODY Mchugh IGRATION_ DEFAULT_1 _1 , 04/28/2021 00:00:00 04/28/2021 13:40:34 [id number] Jose Teran MD S[facility] [address] [address] 05/30/2021 00:00:00 05/30/2021 10:34:34 [id number] Nidia Bains MD [facility] Internal Med [address] [address] 06/17/2021 00:00:00 06/17/2021 13:10:02 [id number] MD RODY Mchugh IGRATION_ DEFAULT_1 _1 , 07/28/2021 00:00:00 07/28/2021 13:48:02 [id number] Jose Teran MD [facility] [address] [address] 10/31/2021 00:00:00 10/31/2021 12:02:25 [id number] MD RODY Mchugh IGRATION_ DEFAULT_1 _1 , 11/24/2021 00:00:00 11/24/2021 11:09:04 [id number] Nidia Bains MD [facility] Internal Med [address] [address] 04/27/2022 00:00:00 04/27/2022 14:41:18 [id number] [facility] [address] 06/06/2022 00:00:00 06/06/2022 15:12:18 [id number] Shirley Eli MD [facility] Endo [address] [place] [address] 08/25/2022 00:00:00 08/25/2022 21:01:21 [id number] Jose Teran MD Luis Carlos_G Pulmonolo gy [place] [address] [place] [address] 15 [place] [address] 11/07/2022 00:00:00 11/07/2022 11:24:23 [id number] Shirley Eli MD Luis Carlos[facility] Endo [address] [place] [address] 02/20/2023 12:15:46 02/20/2023 12:44:41 Hypothyroidism 65880169 E03.9 TSH borderline with normal free hormones- [...] on. Screening for malignant neoplasm of colon 760235977 Z12.11 refer to gastroente rology as patient due for screening scan. Orthostati c hypotension 95421900 I95.1 Continue on florinef 0.1 mg up [...] informatio n in the electronic health record, shayeen laniy interpreti ng results and communicat ing results to the patient. RTC in 6 months. Patient was provided a handwritte n lab order which contains our fax number. If she chooses to go outside of the [facility] system to obtain labwork she was [...] in her case. She voiced understand ing. [id number] Nidia Bains MD S[facility] [address] [place] [address] 04/30/2023 11:35:43 04/30/2023 12:18:33 Hyperlipidemia 16500223 E78.5 on meds Osteopenia 534113809 M85 .80 on vit D Low blood pressure 50494 003 I95.9 Francis fox it, seeing endo Allergic rhinitis 203786 04 J30.9 meds help Solitary n odule of lung 491367333 R91.1 needs f/u CT chest Dizziness 049472022 R42 seeing chiropract or Adult heal th examination 998886956 Z00.00 Colonoscop y- >10 yrs ago, endo ordered it, getting it in 2 weeksColo- gonsalod - 2018 - NEGMammogr am- 3Dex a- 03/2023FLU - 2COVID- 01/31-21, 02/28/2021 History of chest pain 16 39974069 6816066 Z87.898 tress test, Holter, sleep study neg in 2018 Hypothyroidism 81878358 E03.9 on meds from endo [id number] Shirley Eli MD [facility] [place] [address] [place] [address] 08/07/2023 11:16:46 08/07/2023 11:47:17 Hypothyroidism 77581241 E03.9 TSH and FT4 in ideal range- [...] and reduce inflammati on. Orthostati c hypotension 80045657 I95.1 Continue on florinef 0.1 mg up [...] answered and refills necessary at visit today. [id number] Nidia Bains MD [facility] [address] [place] [address] 11/29/2023 10:21:38 11/29/2023 11:04:29 Hyperlipidemia 40181434 E78.5 on meds Osteopenia 999113179 M85 .80 on vit D History of chest pain 16 58264067 5030058 Z87.898 stress test, Holter, sleep study neg in 2018 Low blood pressure 81191 003 I95.9 Natalief raya fox it, Allergic rhinitis 060254 04 J30.9 meds help Solitary n odule of lung 622647968 R91.1 CT chest 05/27, 6 mm nodule Dizziness 453554861 R42 better Adult heal th examination 612164267 Z00.00 Colonoscop y- >10 yrs ago, aware that it is due, will let me know when wantsColo- guard - 2017 - NEGMammogr am- ex a- 03/2023FLU - 3COV ID- , 02/28/2021 Hypothyroidism 71928798 E03.9 on meds Orthostati c hypotension 27511240 I95.1 stable with meds [id number] Nidia Bains MD [facility] Internal Med [place] [address] 04/09/2024 10:16:22 04/09/2024 11:04:35 Hyperlipidemia 91270308 E78.5 on meds History of chest pain 16 28902094 7154976 Z87.898 stress test, Holter, sleep study neg in 2018 Allergic rhinitis 606250 04 J30.9 meds help Solitary n odule of lung 963504897 R91.1 CT chest 05/27, 6 mm nodule, order next time Dizziness 425123804 R42 advised to see neurology at [facility] Adult heal th examination 382045967 Z00.00 Colonoscop y- >10 yrs ago, aware that it is due, will let me know when wantsColo- guard - 2017 - NEGMammogr am- 03/2023- ScheduledP neumovax- wants to waitDexa- 03/2023FLU - 3COV ID- , 02/28/2021 Hypothyroidism 82297882 E03.9 on meds , TO SEE NEW ENDO Orthostati c hypotension 62065664 I95.1 stable with meds Screening for disorder 572625540 Z13.9 [id number] Nidia Bains MD [facility] [place] [address] 08/27/2024 15:15:41 08/27/2024 16:37:56 Hyperlipidemia 19002280 E78.5 on meds History of chest pain 16 95839873 2902335 Z87.898 stress test, Holter, sleep study neg in 2018 Allergic rhinitis 632295 04 J30.9 meds help Solitary n odule of lung 961447943 R91.1 CT chest 05/27, 6 mm nodule, Dizziness 023375123 R42 to see neurology at [facility], STILL HAS MILD SYMPTOMS Adult heal th examination 779137674 Z00.00 Colonoscop y- >10 yrs ago, aware that it is due, will let me know when wantsColo- guard - 2017 - NEGMammogr am- 04/30/24Pn eumovax- wants to waitDexa- 03/2023FL[facility] - [facility]- , 02/28/2021 [employer]YS[employer], FORMS SIGNED Hypothyroidism 51105316 E03.9 on meds , Orthostati c hypotension 15307417 I95.1 stable with meds [id number] Nidia Bains MD [facility] [address] [place] [address] 01/28/2025 15:24:10 01/28/2025 16:37:24 Hyperlipidemia 28723893 E78.5 under control History of chest pain 16 07317543 0894729 Z87.898 stress test, Holter, sleep study neg in 2018 Allergic rhinitis 868594 04 J30.9 meds help Solitary n odule of lung 994004550 R91.1 stable Dizziness 638611031 R42 to see neurology at [facility], STILL HAS MILD SYMPTOMS Adult heal th examination 426592376 Z00.00 Colonoscop y- >10 yrs ago, aware that it is due, will let me know when wantsColo- guard - 2017 - NEGMammogr am- 04/30/24Pn eumovax- DOES NOT WANTDexa- 03/2023FLU - 08/26/2024 ([facility] )COVID- , 02/28/2021 PHYSICAL DONE FOR [employer], FORMS SIGNED Hypothyroidism 10226128 E03.9 on meds , Orthostati c hypotension 67683747 I95.1 stable with meds [id number] Nidia Bains MD [facility] Internal [address] [facility] [place] [address] 06/02/2025 10:42:37 06/02/2025 11:25:52 Hyperlipidemia 32195375 E78.5 under control History of chest pain 16 27404665 0430251 Z87.898 stress test, Holter, sleep study neg in 2018, no more symptoms Allergic rhinitis 508028 04 J30.9 meds help Solitary n odule of lung 780912049 R91.1 CT in 09/28 Dizziness 085803599 R42 not many symptoms any more Adult heal th examination 695563675 Z00.00 Colonoscop y- >10 yrs ago, aware that it is due, will let me know when wantsColo- guard - 2018 - NEGMammogr am- 04/30/24- Having it today 06/02/25Pne umovax- DOES NOT WANTDexa- 05/04/25FLU - 08/26/2024 ([facility] )COVID- 01/31-, 02/28/2021 PHYSICAL DONE FOR NEW [employer], FORMS SIGNED Hypothyroidism 24617929 E03.9 on meds Orthostati c hypotension 66535121 I95.1 stable with meds [id number] Nidia Bains MD [facility] Internal Med [facility] [address] [facility] [place] [address] 09/29/2025 14:56:02 09/29/2025 15:58:18 Hyperlipidemia 39992981 E78.5 under control History of chest pain 16 32799256 5266478 Z87.898 stress test, Holter, sleep study neg in 2018, no more symptoms Allergic rhinitis 327611 04 J30.9 meds help Solitary n odule of lung 577600126 R91.1 CT in 09/28 Dizziness 435166012 R42 unchanged Hypothyroidism 96788654 E03.9 on meds Orthostati c hypotension 08253355 I95.1 stable with meds Adult heal th examination 542508953 Z00.00 Colonoscop y- >10 yrs ago, aware that it is due, will let me know when wants, getting cologuardC olo-guard - 2018 - NEGMammogr am- 04/30/24- exa - 05/04/25FLU - 08/26/2024 ([facility] )COVID- 01/31-, 02/28/2021 Counseling procedure with explicit context 379543136 Z71.85 55352816 vaccinatio ns discussed Health Concerns Section Related Observation LastModified by Organization Detai ls LastModified Time None Recorded Concern Status LastModified by Organization Details LastModified Time None Recorded Advance Directives Directive N: Payers Insurance Date Sequence Insurance Name Policy Number Policy Hewitt Covered Member ID Hewitt Member ID Guarantor Name 09/26/2025 1 [facility] (MEDICARE REPLACEMENT/A DVANTAGE - HMO) [id number] Bisi Kuhn [id number] Bisi Kuhn Notes Date Note Type Note Provider Name and Address Organization Details Recorded Time 04/09/2024 text/html She is here today for [...] 2019 , WAS seeing a chiropractor Nidia Bains MD [address] [facility], [facility] [address], [place], [address], [facility] [employer] 04/09/2024 12:02:43 08/27/2024 text/html She is here [...] 2019 , WAS seeing a chiropractor Nidia Bains MD [address], [place], [address], [employer] 08/27/2024 16:23:06 01/28/2025 text/html She is here today for her routine follow up.PT IS NOT FASTING ( [facility] ) Hyperlipidemia- on med and under control, labs good/Meds- Atorvastatin 10 mg qd Rhinitis- meds helptakes [...] 2019 , WAS seeing a chiropractor Nidia Bains MD [address], [place], [address], [employer] 01/28/2025 16:27:05 06/02/2025 text/html She is here today for her routine follow up. PT IS NOT FASTING ( [facility] ) Hyperlipidemia- on med and under control, labs good3/25Meds- Atorvastatin 10 mg qd Rhinitis- meds helptakes Singular and Flonase, Osteoporosis- OTC calcium + D, dexa 2022Med- Ibandronate 150 mg once a month, from gyne Orthostatic hypotension/Low BP- has been checking bp at home better, no symptomsMeds- Fludrocortisone 0.1 mg, was seeing concha eli, seeing another endo, Dr Barker Hypothyroidism- [...] 2019 , WAS seeing a chiropractor Nidia Bains MD [address], [address], [place], [address], [employer] 06/02/2025 11:08:33 09/29/2025 text/html She is here today for her routine follow up. PT IS NOT FASTING ( [facility] ) Hyperlipidemia- on med and under control, labs good09/29Meds- Atorvastatin 10 mg qd Rhinitis- meds helptakes Singular and Flonase, Osteoporosis- OTC calcium + D, dexa 04/29Med- Ibandronate 150 mg once a month, from gyne Orthostatic hypotension/Low BP- has been checking bp at home better, no symptomsMeds- Fludrocortisone 0.1 mg, was seeing concha eli, seeing another endo, Dr Barker Hypothyroidism- [...] WAS seeing a chiropractor, has not chnaged Nidia Bains MD [address], [place], [address], [employer] 09/29/2025 15:48:17 OBGyn Episode No OBEpisode recorded.
--- OUTSIDE RECORDS SUMMARY | 2025-10-21 07:11 | XMS_ITS | Clinical Summary ---
Author Organization [facility] Address [address] [place] [address] Phone Care Team Providers Care Skin Former Name Role Phone Tyshawn Bains MD Primary Care Provider [phone] Lara Solitario APRN, MARRIAGE PERFORMER Unavailable [phone] Allergies No known active allergies Medications atorvastatin [...] Years Used Date Smoking Tobacco: Former Cigarettes 0 Q uit: 11/05/1979 Smokeless Tobacco: Never Alcohol [...] 2006 Zoster Immunization (1 of 2) 2006 Medicare Initial AWV [id number] 11/05/2022 Influenza Immunization (#1) 07/06/202504/2022, 09/07/2021, 08/30/2020, Additional history exists SARS-COV-2 Immunization (2024- season) 2025 08/10/2022, 09/07/2021, 02/28/2021, Additional history exists Respiratory Syncytial Virus (RSV) Immunization (Adult) (1 - 1-dose 75+ series) 2031 Hepatitis B Immunization Aged Out No longer eligible based on patient's age to complete this topic Human Papillomavirus (HPV) Immunization (No Doses Required) Completed Meningococcal Immunization (ACWY) Aged Out No longer eligible based on patient's age to complete this topic Rotavirus Immunization Aged Out No lo nger eligible based on patient's age to complete this topic Insurance MEDICARE C [facility] on file Care Teams Skin Former Relationship Specialty Start Date End Date Tyshawn Bains MD PCP - General Internal Medicine 05/03/22 Lara Solitario APRN, MARRIAGE PERFORMER [address] [place] [address] Nurse Practitioner Advanced Practice Nurse 07/12/22
[2025-10-21 07:47] LABS: Anion Gap 6 mmol/L (4-12); Blood Urea Nitrogen 17 mg/dL (7-17); Calcium 9.0 mg/dL (8.4-10.2); Carbon Dioxide 29 mmol/L (22-30); Chloride 103 mmol/L (98-107); Estimated Glomerular Filt Rate > 60; Glucose 88 mg/dL (65-110); Potassium 3.6 mmol/L (3.4-5.0); Sodium 138 mmol/L (137-145)
[2025-10-21 08:23] LABS: Thyroid Stimulating Hormone 2.940 uIU/mL (0.465-4.680)
[2025-10-21 09:16] LABS: Parathyroid Intact 72.2 pg/mL (14.5-75.2)
[2025-10-21 10:48] LABS: Free T4 Free Thyroxine 1.05 ng/dL (0.78-2.19)
== END 2025-10-21 07:07 | disposition home or self-care (01) ==
LOC: ANHLAB 07:09
PROVIDERS: PCP Internal Medicine; Visit Provider Internal Medicine Endocrinology, Diabetes & Metabolism
DX: E03.9 Hypothyroidism, unspecified (principal); M81.0 Age-related osteoporosis without current pathological fracture; R79.89 Other specified abnormal findings of blood chemistry; E55.9 Vitamin D deficiency, unspecified
CPT/HCPCS: 36415; 80048; 82306; 83970; 84439; 84443